=== PATIENT | female | born 1950 | race Caucasian/White ===

== ENCOUNTER 2020-07-03 08:12 | Outpatient (REF) | payer MEDICARE, SELFPAY ==
[2020-07-03 11:20] LABS: MANUAL DIFF FLAG NO
[2020-07-03 11:31] LABS: Basophils Absolute Auto 0.1 X10*3/uL (0.0-0.2); Basophils Percent Auto 0.6 % (0-2); Eosinophils Absolute Auto 0.3 X10*3/uL (0.0-0.4); Eosinophils Percent Auto 3.8 % (0-4); Hematocrit 43.8 % (37-47); Hemoglobin 14.6 g/dl (12.0-16.0); Imm Gran Abs Auto 0.02 X10*3/uL (0.00-0.03); Imm Gran Pct Auto 0.3 % (0.0-0.4); Lymphocytes Absolute Auto 2.2 X10*3/uL (1.2-4.9); Lymphocytes Percent Auto 28.6 % (20-40); Mean Corpuscular HGB Conc 33.3 g/dl (31.0-35.0); Mean Corpuscular Hemoglobin 31.7 pg (27.0-33.0); Mean Platelet Volume 10.3 fL (9.4-12.3); Monocytes Absolute Auto 0.5 X10*3/uL (0.1-1.2); Monocytes Percent Auto 6.8 % (2-11); Neutrophils Absolute Auto 4.7 X10*3/uL (2.0-8.3); Neutrophils Percent Auto 59.9 % (45-73); Platelet Count 317 X10*3/uL (160-400); Red Blood Count 4.61 X10*6/uL (4.20-5.50); White Blood Count 7.8 X10*3/uL (4.8-10.8)
[2020-07-03 11:44] LABS: Glucose Urine UA NEG (NEG); Leukocyte Esterase Urine NEG (NEG); Nitrite Urine NEG (NEG); Urine Blood 3+ (NEG); Urine Ketones NEG (NEG); Urine Protein TRACE MG/DL (NEG-TRACE)
[2020-07-03 11:46] LABS: Appearance Urine CLEAR; Color Urine YELLOW
[2020-07-03 11:53] LABS: Alanine Aminotransferase 16 U/L (0-31); Albumin Level 4.3 g/dL (3.5-5.0); Anion Gap 12 (12-20); Aspartate Amino Transferase 17 U/L (5-31); Bilirubin Total 0.4 mg/dL (0.0-1.0); Blood Urea Nitrogen 10 mg/dL (9-16); Calcium 9.6 mg/dL (8.4-10.2); Carbon Dioxide 31 mmol/L (22-29); Chloride 101 mmol/L (96-108); Cholesterol 193 mg/dL; Estimated Glomerular Filt Rate > 60; Glucose Fasting 84 mg/dL (60-99); HDL Cholesterol 61 mg/dL; LDL Cholesterol Calculated 113 mg/dl; Potassium 4.2 mmol/l (3.3-5.1); Sodium 140 mmol/L (135-145); Total Protein 6.6 g/dL (6.5-8.0); Triglycerides 97 mg/dL
[2020-07-03 11:54] LABS: Alkaline Phosphatase 76 U/L (39-117)
[2020-07-03 11:57] LABS: Bacteria Urine TRACE /LPF; Mucus Urine 1+ /LPF; RBC Urine 30-49 /HPF (0); Squamous Epithelial Cell Urine 1+ /LPF; WBC Urine 0-2 /HPF (0-4)
[2020-07-03 12:08] LABS: TSH reflex Free T4 1.22 mIU/mL (0.32-4.0)
== END 2020-07-03 08:13 | disposition home or self-care (01) ==
LOC: HO.HMGCLDS 08:12
PROVIDERS: PCP Internal Medicine; Visit Provider Internal Medicine
DX: I10 Essential (primary) hypertension (principal); J44.9 Chronic obstructive pulmonary disease, unspecified; K21.9 Gastro-esophageal reflux disease without esophagitis; F17.200 Nicotine dependence, unspecified, uncomplicated
CPT/HCPCS: 36415; 80053; 80061; 81001; 84443; 85025

== ENCOUNTER 2021-01-02 08:31 | Day surgery (SDC) | payer MEDICARE, SELFPAY ==
[2020-12-26 14:11] VITALS: BMI 21.0
--- NOTE | 2020-12-31 15:27 | P.CONAN_ITS ---
Documented by User: Lydia Whelan 12/31/20 15:28 HPI - Anesthesia Eval Consult details Narrative: 70yo F for Colonoscopy PMFSH Active Problems Active Problems: All Active Problems (Updated 12/26/20 @ 13:58 by Judith Marin) Blood in stool (Acute) Benign microscopic hematuria (Acute) Smoker (Acute) GERD without esophagitis (Acute) Osteoarthritis of spine with radiculopathy, cervical region (Acute) Benign essential hypertension (Acute) COPD (chronic obstructive pulmonary disease) (Acute) Past Medical History Medical History Benign essential hypertension Benign microscopic hematuria Blood in stool COPD (chronic obstructive pulmonary disease) COVID-19 vaccine series completed GERD without esophagitis Osteoarthritis of spine with radiculopathy, cervical region Smoker Family History Family History Father Hypertension Cerebral aneurysm Mother Cerebral aneurysm Cancer Surgical History Surgical History (Updated 12/26/20 @ 14:06 by Judith Marin) History of breast lump/mass excision History of cataract extraction History of cystoscopy History of esophagogastroduodenoscopy (EGD) Hx of colonoscopy Social History Social History Are you a primary personal caregiver to a significant other at home: No Do you presently have visiting nurse or other home services: No Alcohol intake: current Alcohol intake frequency: holidays/special occasions only Patient Tobacco Use Status: Current everyday Tobacco user Tobacco use type: Cigarette Cigarette Packs Per Day: 0.5 Cigarettes Per Day: 10.0 Years Smoked: 55+ Smoked in Last 30 Days: Yes Patient Interested in Nicotine Replacement: No Patient Given Instructions on How to Stop Smoking: Yes Date Education Initiated: 12/26/20 Use of substances other than those prescribed or required for medical reasons: No Have you been hit, kicked, punched, or otherwise hurt by someone within the past year? If so, by whom?: No Are you DNR?: No Advance Directives: No Advance Directives Information Provided: No Advance Directives on File: No Recently lost weight without trying: No Eating poorly because of decreased appetite: No Meds Allergies Allergy/AdvReac Type Severity Reaction Status Date / Time oxycodone [Percocet] Allergy Unknown Vomiting Verified 12/26/20 14:07 strawberry [STRAWBERRY] Allergy Unknown ITCHY Verified 12/26/20 14:07 Home Medications Medication Instructions Recorded Confirmed Last Taken Type albuterol sulfate 90 mcg/actuation 2 puff INHALATION Q6H PRN 06/27/20 12/26/20 Unknown History aerosol inhaler fluticasone propionate 110 1 puff INHALATION BID 06/27/20 12/26/20 Unknown History mcg/actuation HFA aerosol inhaler umeclidinium 62.5 mcg/actuation 1 inh INHALATION DAILY 06/27/20 12/26/20 Unknown History blister powder for inhalation Exam Exam Date and Time: December 31, 2020 1527 Height,Weight and Vital Signs: Height 5 ft 2 in Weight 52.163 kg Assessment and Plan Assessment Anesthesia Assessment: Chart Reviewed Documented by User: Carlota Crenshaw 01/02/21 08:23 [facility] Past Medical History Medical History Benign essential hypertension Benign microscopic hematuria Blood in stool COPD (chronic obstructive pulmonary disease) COVID-19 vaccine series completed GERD without esophagitis Osteoarthritis of spine with radiculopathy, cervical region Smoker Family History Family History Father Hypertension Cerebral aneurysm Mother Cerebral aneurysm Cancer Surgical History Surgical History (Updated 12/26/20 @ 14:06 by Judith Marin) History of breast lump/mass excision History of cataract extraction History of cystoscopy History of esophagogastroduodenoscopy (EGD) Hx of colonoscopy Social History Social History Are you a primary personal caregiver to a significant other at home: No Do you presently have visiting nurse or other home services: No Alcohol intake: current Alcohol intake frequency: holidays/special occasions only Patient Tobacco Use Status: Current everyday Tobacco user Tobacco use type: Cigarette Cigarette Packs Per Day: 0.5 Cigarettes Per Day: 10.0 Years Smoked: 55+ Smoked in Last 30 Days: Yes Patient Interested in Nicotine Replacement: No Patient Given Instructions on How to Stop Smoking: Yes Date Education Initiated: 12/26/20 Use of substances other than those prescribed or required for medical reasons: No Have you been hit, kicked, punched, or otherwise hurt by someone within the past year? If so, by whom?: No Are you DNR?: No Advance Directives: No Advance Directives Information Provided: No Advance Directives on File: No Recently lost weight without trying: No Eating poorly because of decreased appetite: No Meds Allergies Allergy/AdvReac Type Severity Reaction Status Date / Time oxycodone [Percocet] Allergy Unknown Vomiting Verified 12/26/20 14:07 strawberry [STRAWBERRY] Allergy Unknown ITCHY Verified 12/26/20 14:07 Home Medications Medication Instructions Recorded Confirmed Last Taken Type albuterol sulfate 90 mcg/actuation 2 puff INHALATION Q6H PRN 06/27/20 12/26/20 Unknown History aerosol inhaler fluticasone propionate 110 1 puff INHALATION BID 06/27/20 12/26/20 Unknown History mcg/actuation HFA aerosol inhaler umeclidinium 62.5 mcg/actuation 1 inh INHALATION DAILY 06/27/20 12/26/20 Unknown History blister powder for inhalation Exam Airway Mallampati Class: II TM Dist: >3cm Neck ROM: Full Heart: RRR Lungs: CTA
[2021-01-02 09:11] VITALS: BP 118/71; PULSE 75; RESP 16; TEMP 37.1; O2SAT 94
[2021-01-02] MEDS: Lactated Ringers 1,000 ML 100 ML IVCONT (09:21)
--- NOTE | 2021-01-02 11:22 | HO.POSTANES ---
Post Anesthesia Evaluation Post Anesthesia Evaluation Vital Signs: Vital Signs Temp Pulse Resp BP Pulse Ox 01/02/21 09:11 98.8 F 75 16 118/71 94 Anesthesia: Monitored Mental Status: Awake Nausea/Vomiting: None Hydration: Adequate Anesthesia-Related Issues: No Anes. Related Issues
[2021-01-02 11:30] VITALS: BP 113/64; PULSE 77; RESP 18; TEMP 36.7; O2SAT 99
--- NOTE | 2021-01-02 11:33 | PM.OP ---
Brief Operative Note Date of Service: 01/02/21 Pre-op diagnosis: Heme + stool, History of colon polyps Post-op diagnosis: other (Colon polyps) Procedure: Colonoscopy to the cecum and TI with snare polypectomy and bx/removal of polyp Surgeon: Luis Antonio Zepeda Anesthesia: MAC Was an Building Construction Professor used for this Procedure?: No Estimated blood loss (mL): 4.0 Pathology: other (A. Transverse colon polyp B. Rectal polyp) Condition: stable Disposition: PACU
[2021-01-02 11:50] VITALS: BP 127/68; PULSE 62; RESP 18; O2SAT 97
--- NOTE | 2021-01-02 20:27 | OP_ITS ---
SURGEON: Luis Antonio Zepeda MD INDICATIONS: Full consent has been obtained from her for this, including risks of bleeding and perforation. PREOPERATIVE DIAGNOSIS: POSTOPERATIVE DIAGNOSIS: PROCEDURE PERFORMED: Colonoscopy to the cecum and terminal ileum with snare polypectomy, and biopsy and removal of polyp. ESTIMATED BLOOD LOSS: COMPLICATIONS: ANESTHESIA: Monitored anesthesia care. ASSISTANTS: SPECIMENS: PREOPERATIVE DIAGNOSES: Heme-positive stool and history of colon polyps. POSTOPERATIVE DIAGNOSES: Heme-positive stool and history of colon polyps, colon polyps, diverticulosis and internal hemorrhoids. DESCRIPTION OF PROCEDURE: The patient was placed in the left lateral decubitus position. The digital rectal exam revealed some external hemorrhoids. The Olympus video pediatric colonoscope was entered into the rectum and advanced easily to the cecum. Once in the cecum, I did identify normal-appearing cecal pouch with appendiceal orifice and a normal-appearing ileocecal valve. The terminal ileum was cannulated and appeared normal. The scope was withdrawn back in the colon. The entire cecum and ileocecal valve appeared normal. The scope was slowly withdrawn assessing all mucosal surfaces carefully. Preparation was excellent. In the transverse colon, was a flat, but slightly raised approximately 10 mm polyp, which was snared and recovered by suction. The polypectomy site appeared clean, without any sign of residual polyp nor bleeding. In the rectum, was a flat approximately 6 mm polyp, which was biopsied and completely removed with cold biopsy forceps. I did not visualize any other polyps, colitis, nor angiodysplasia. There was a moderate amount of sigmoid diverticulosis. In the rectum, scope was retroflexed visualizing internal hemorrhoids, but no other pathology. The rectal mucosa appeared normal. The scope was straightened out and withdrawn from the patient. She tolerated the procedure well and was returned to the recovery area in stable condition. IMPRESSION: 1. Colon polyps, status post snare polypectomy, and biopsy and removal. 2. Diverticulosis. 3. Internal hemorrhoids. 4. External hemorrhoids. PLAN: The results of the pathology will be checked. I would recommend a repeat colonoscopy in 5 years for further surveillance. She was advised not to use any aspirin or NSAIDs for 1 week. She would otherwise see me on a p.r.n. basis. MD NARCISA Rios/MICHELLE / [phone]
== END 2021-01-02 12:18 | disposition home or self-care (01) ==
PROVIDERS: PCP Internal Medicine; Visit Provider Internal Medicine
PROC: 0DJD8ZZ Inspection of Lower Intestinal Tract, Via Natural or Artificial Opening Endoscopic (ICD-10-PCS; CPT 45378; principal; 2021-01-02 10:10)
DX: Z12.11 Encounter for screening for malignant neoplasm of colon (principal); Z86.010 Personal history of colon polyps; D12.3 Benign neoplasm of transverse colon; K62.1 Rectal polyp; K57.30 Diverticulosis of large intestine without perforation or abscess without bleeding; K64.8 Other hemorrhoids; K64.4 Residual hemorrhoidal skin tags; I10 Essential (primary) hypertension; J44.9 Chronic obstructive pulmonary disease, unspecified; K21.9 Gastro-esophageal reflux disease without esophagitis; Z79.51 Long term (current) use of inhaled steroids; Z79.899 Other long term (current) drug therapy; Z88.8 Allergy status to other drugs, medicaments and biological substances; F17.210 Nicotine dependence, cigarettes, uncomplicated
CPT/HCPCS: 45385; 45380; 88305

== ENCOUNTER 2021-06-04 07:22 | Outpatient (REF) | payer MEDICARE, SELFPAY ==
[2021-06-04 11:39] LABS: MANUAL DIFF FLAG NO
[2021-06-04 11:41] LABS: Appearance Urine CLEAR; Color Urine STRAW; Glucose Urine UA NEG (NEG); Leukocyte Esterase Urine NEG (NEG); Nitrite Urine NEG (NEG); Specific Gravity - Urine <= 1.005 (1.005-1.025); UACC Culture Trigger NO; Urine Blood 2+ (NEG); Urine Ketones NEG (NEG); Urine Protein NEG (NEG-TRACE)
[2021-06-04 11:46] LABS: Basophils Percent Auto 0.4 % (0-2); Eosinophils Absolute Auto 0.2 X10*3/uL (0.0-0.4); Eosinophils Percent Auto 2.7 % (0-4); Hematocrit 40.7 % (37.0-47.0); Hemoglobin 13.6 g/dl (12.0-16.0); Imm Gran Abs Auto 0.01 X10*3/uL (0.00-0.03); Imm Gran Pct Auto 0.1 % (0.0-0.4); Lymphocytes Absolute Auto 2.6 X10*3/uL (1.2-4.9); Lymphocytes Percent Auto 34.9 % (20-40); Mean Corpuscular HGB Conc 33.4 g/dl (31.0-35.0); Mean Corpuscular Hemoglobin 31.6 pg (27.0-33.0); Mean Corpuscular Volume 94.7 fL (80.0-98.0); Mean Platelet Volume 10.2 fL (9.4-12.3); Monocytes Absolute Auto 0.6 X10*3/uL (0.1-1.2); Monocytes Percent Auto 7.3 % (2-11); Neutrophils Absolute Auto 4.1 x10*3/uL (2.0-8.3); Neutrophils Percent Auto 54.6 % (45-73); Platelet Count 291 X10*3/uL (160-400); Red Cell Distribution Width 13.2 % (11.0-16.0); White Blood Count 7.5 X10*3/uL (4.8-10.8)
[2021-06-04 11:56] LABS: Squamous Epithelial Cell Urine 1+ /LPF; WBC Urine 0-2 /HPF (0-4)
[2021-06-04 12:08] LABS: Alanine Aminotransferase 16 U/L (0-31); Albumin Level 4.3 g/dL (3.5-5.0); Alkaline Phosphatase 84 U/L (39-117); Anion Gap 13 (12-20); Aspartate Amino Transferase 17 U/L (5-31); Bilirubin Total 0.4 mg/dL (0.0-1.0); Blood Urea Nitrogen 17 mg/dL (9-16); Calcium 10.1 mg/dL (8.4-10.2); Carbon Dioxide 28 mmol/L (22-29); Chloride 103 mmol/L (96-108); Cholesterol 202 mg/dL; Estimated Glomerular Filt Rate > 60; Glucose Fasting 86 mg/dL (60-99); HDL Cholesterol 61 mg/dL; LDL Cholesterol Calculated 124 mg/dl; Potassium 3.5 mmol/L (3.3-5.1); Sodium 140 mmol/L (135-145); Total Protein 6.5 g/dL (6.5-8.0); Triglycerides 88 mg/dL
[2021-06-04 12:31] LABS: TSH reflex Free T4 1.36 uIU/mL (0.32-4.0); Vitamin D 25-OH Total 31.4 ng/mL (>30)
== END 2021-06-04 07:23 | disposition home or self-care (01) ==
LOC: HO.HMGCLDS 07:22
PROVIDERS: PCP Internal Medicine; Visit Provider Internal Medicine
DX: E78.00 Pure hypercholesterolemia, unspecified (principal); E55.9 Vitamin D deficiency, unspecified; I10 Essential (primary) hypertension
CPT/HCPCS: 36415; 80053; 80061; 81001; 82306; 84443; 85025

== ENCOUNTER → 2021-11-04 08:36 | Outpatient (REF) | payer MEDICARE, SELFPAY ==
--- NOTE | 2021-11-04 08:50 | ECG_ITS ---
Test Reason : CHEST PAIN Blood Pressure : / mmHG Vent. Rate : 073 BPM Atrial Rate : 073 BPM P-R Int : 162 ms QRS Dur : 078 ms QT Int : 382 ms P-R-T Axes : 082 077 071 degrees QTc Int : 420 ms Normal sinus rhythm Normal ECG When compared with ECG of 08-SEP-2008 12:12, No significant change was found Referred By: Mary Echeverria Electronically Signed By:Davian Jasmine
== END ==
LOC: HO.CARD 08:36
PROVIDERS: PCP Internal Medicine; Visit Provider Nurse Practitioner Family
DX: R07.89 Other chest pain (principal)
CPT/HCPCS: 93005

== ENCOUNTER → 2022-04-01 14:45 | Outpatient (BNVA) | payer MEDICARE, SELFPAY | PROVIDERS: PCP Internal Medicine; Visit Provider Surgery | DX: C50.912 Malignant neoplasm of unspecified site of left female breast (principal); N64.4 Mastodynia | CPT/HCPCS: 99202 ==

== ENCOUNTER 2022-04-06 08:18 | Outpatient (REF) | payer MEDICARE, SELFPAY ==
--- NOTE | ~2022-04-06 | MM_ITS ---
EXAMINATION: MM DIAGNOSTIC DIGITAL BREAST TOMOSYNTHESIS, BILATERAL US TARGETED BREAST ULTRASOUND, LEFT CLINICAL INFORMATION: Status post left lumpectomy and radiation therapy with tenderness and redness in the upper outer quadrant. COMPARISON: Mammography: 11/08/2019 and studies dating back to 04/25/2014. TECHNIQUE: Digital breast tomosynthesis is performed in both the craniocaudal and mediolateral oblique views along with computer-aided detection (CAD). Synthesized 2-D images are generated from the tomosynthesis. Targeted left breast ultrasound. FINDINGS: There are scattered areas of fibroglandular density (ACR BI-RADS breast composition Category b). There are no new significant masses, abnormal calcifications, or other abnormalities. Postsurgical change from previous lumpectomy again seen. Targeted left breast ultrasound in region of palpable abnormality upper outer aspect did not demonstrate any abnormal cystic or solid masses. No region of abnormal distal sound shadowing is appreciated. No edematous change within the parenchyma is noted. Results are discussed with the patient at time of visit. MM/MM tomosynthesis diagnostic BI IMPRESSION: There are no significant changes from prior study. No ultrasound abnormality in region of patient's complaint. ASSESSMENT: BI-RADS 2: Benign. RECOMMENDATION: Routine annual mammography screening. This patient's information was entered into a reminder system with a target due date for their next mammogram.
== END 2022-04-06 08:19 | disposition home or self-care (01) ==
LOC: HO.MAMMO 08:18
PROVIDERS: PCP Internal Medicine; Visit Provider Surgery
DX: N64.4 Mastodynia (principal); C50.912 Malignant neoplasm of unspecified site of left female breast
CPT/HCPCS: 76642; 77062; 77066

== ENCOUNTER 2022-05-14 11:55 | Outpatient (REF) | payer MEDICARE, SELFPAY ==
--- NOTE | ~2022-05-14 | XR_ITS ---
EXAMINATION: XR ANKLE, RIGHT CLINICAL INFORMATION: Right ankle sprain. COMPARISON: None TECHNIQUE: AP, lateral, and mortise views of the right ankle. FINDINGS: The bones and soft tissues are normal. No fracture. Alignment is anatomic. Joint spaces are maintained. No joint effusion. Very small plantar and retrocalcaneal spur. XR/XR ankle RT min 3V IMPRESSION: Very small degenerative calcaneal spurs. No acute fracture.
== END 2022-05-14 11:56 | disposition home or self-care (01) ==
LOC: HO.HMGCX 11:55
PROVIDERS: PCP Internal Medicine; Visit Provider Internal Medicine
DX: S93.401A Sprain of unspecified ligament of right ankle, initial encounter (principal)
CPT/HCPCS: 73610

== ENCOUNTER 2022-06-30 08:35 | Outpatient (REF) | payer MEDICARE, SELFPAY ==
[2022-06-30 11:43] LABS: Appearance Urine Clear; Color Urine Yellow; Glucose Urine UA Negative (Negative); Leukocyte Esterase Urine Negative (Negative); Nitrite Urine Negative (Negative); Specific Gravity - Urine <= 1.005 (1.005-1.025); UMIC TRIGGER UACC YES; Urine Blood Small (1+) (Negative); Urine Ketones Negative (Negative); Urine Protein Negative (Neg-Trace)
[2022-06-30 11:45] LABS: MANUAL DIFF FLAG NO
[2022-06-30 11:48] LABS: Basophils Absolute Auto 0.1 X10*3/uL (0.0-0.2); Basophils Percent Auto 0.7 % (0-2); Eosinophils Absolute Auto 0.3 X10*3/uL (0.0-0.4); Eosinophils Percent Auto 3.5 % (0-4); Hematocrit 41.1 % (37.0-47.0); Hemoglobin 13.7 g/dl (12.0-16.0); Imm Gran Abs Auto 0.02 X10*3/uL (0.00-0.03); Imm Gran Pct Auto 0.2 % (0.0-0.4); Lymphocytes Absolute Auto 2.5 X10*3/uL (1.2-4.9); Lymphocytes Percent Auto 30.9 % (20-40); Mean Corpuscular HGB Conc 33.3 g/dl (31.0-35.0); Mean Corpuscular Hemoglobin 31.4 pg (27.0-33.0); Mean Corpuscular Volume 94.3 fL (80.0-98.0); Monocytes Absolute Auto 0.6 X10*3/uL (0.1-1.2); Monocytes Percent Auto 7.5 % (2-11); Neutrophils Absolute Auto 4.6 x10*3/uL (2.0-8.3); Neutrophils Percent Auto 57.2 % (45-73); Platelet Count 307 X10*3/uL (160-400); Red Blood Count 4.36 X10*6/uL (4.20-5.50); Red Cell Distribution Width 13.1 % (11.0-16.0); White Blood Count 8.1 X10*3/uL (4.8-10.8)
[2022-06-30 12:12] LABS: Bacteria Urine None Seen (None Seen); Hyaline Casts Urine 0-2 /LPF (0-2); Squamous Epithelial Cell Urine 0-2 /HPF (0-2); WBC Urine 0-5 /HPF (0-5)
[2022-06-30 12:19] LABS: Alanine Aminotransferase 12 U/L (0-31); Albumin Level 4.1 g/dL (3.5-5.0); Alkaline Phosphatase 84 U/L (39-117); Anion Gap 10 (12-20); Aspartate Amino Transferase 16 U/L (5-31); Bilirubin Total 0.5 mg/dL (0.0-1.0); Blood Urea Nitrogen 16 mg/dL (9-16); Calcium 9.7 mg/dL (8.4-10.2); Carbon Dioxide 31 mmol/L (22-29); Chloride 101 mmol/L (96-108); Cholesterol 215 mg/dL; Estimated Glomerular Filt Rate > 60; Glucose Fasting 82 mg/dL (60-99); HDL Cholesterol 62 mg/dL; LDL Cholesterol Calculated 138 mg/dl; Potassium 3.6 mmol/L (3.3-5.1); Sodium 138 mmol/L (135-145); Total Protein 6.3 g/dL (6.5-8.0); Triglycerides 76 mg/dL
[2022-06-30 12:39] LABS: TSH reflex Free T4 0.89 uIU/mL (0.32-4.0); Vitamin D 25-OH Total 36.7 ng/mL (>30)
== END 2022-06-30 08:36 | disposition home or self-care (01) ==
LOC: HO.HMGCLDS 08:35
PROVIDERS: PCP Internal Medicine; Visit Provider Internal Medicine
DX: I10 Essential (primary) hypertension (principal); E55.9 Vitamin D deficiency, unspecified; E78.00 Pure hypercholesterolemia, unspecified
CPT/HCPCS: 36415; 80053; 80061; 81001; 82306; 84443; 85025

== ENCOUNTER 2023-02-23 07:38 | Outpatient (REF) | payer MEDICARE, SELFPAY ==
[2023-02-23 11:51] LABS: Appearance Urine Clear; Color Urine Yellow; Glucose Urine UA Negative (Negative); Leukocyte Esterase Urine Negative (Negative); Nitrite Urine Negative (Negative); PH 7.5 (5.0-9.0); UMIC TRIGGER UACC YES; Urine Blood Moderate (2+) (Negative); Urine Ketones Negative (Negative); Urine Protein Trace mg/dL (Neg-Trace)
[2023-02-23 11:54] LABS: Bacteria Urine None Seen (None Seen); Hyaline Casts Urine 0-2 /LPF (0-2); RBC Urine >20 /HPF (0-2); Squamous Epithelial Cell Urine 0-2 /HPF (0-2); WBC Urine 0-5 /HPF (0-5)
[2023-02-23 11:55] LABS: MANUAL DIFF FLAG NO
[2023-02-23 12:11] LABS: Basophils Absolute Auto 0.1 X10*3/uL (0.0-0.2); Basophils Percent Auto 0.9 % (0-2); Eosinophils Absolute Auto 0.3 X10*3/uL (0.0-0.4); Hematocrit 43.3 % (37.0-47.0); Hemoglobin 14.1 g/dl (12.0-16.0); Imm Gran Abs Auto 0.02 X10*3/uL (0.00-0.03); Imm Gran Pct Auto 0.3 % (0.0-0.4); Lymphocytes Absolute Auto 2.4 X10*3/uL (1.2-4.9); Lymphocytes Percent Auto 34.1 % (20-40); Mean Corpuscular HGB Conc 32.6 g/dl (31.0-35.0); Mean Corpuscular Hemoglobin 31.5 pg (27.0-33.0); Mean Corpuscular Volume 96.7 fL (80.0-98.0); Mean Platelet Volume 10.4 fL (9.4-12.3); Monocytes Absolute Auto 0.4 X10*3/uL (0.1-1.2); Monocytes Percent Auto 6.3 % (2-11); Neutrophils Absolute Auto 3.8 x10*3/uL (2.0-8.3); Neutrophils Percent Auto 54.4 % (45-73); Platelet Count 290 X10*3/uL (160-400); Red Blood Count 4.48 X10*6/uL (4.20-5.50); Red Cell Distribution Width 13.5 % (11.0-16.0)
[2023-02-23 12:38] LABS: Alanine Aminotransferase 11 U/L (0-31); Alkaline Phosphatase 71 U/L (39-117); Anion Gap 9 (12-20); Aspartate Amino Transferase 17 U/L (5-31); Bilirubin Total 0.5 mg/dL (0.0-1.0); Blood Urea Nitrogen 7 mg/dL (9-16); Calcium 9.8 mg/dL (8.4-10.2); Carbon Dioxide 30 mmol/L (22-29); Chloride 105 mmol/L (96-108); Cholesterol 180 mg/dL (<200); Estimated Glomerular Filt Rate > 60; Glucose Fasting 86 mg/dL (60-99); HDL Cholesterol 63 mg/dL (>40); LDL Cholesterol Calculated 98 mg/dL (<100); Potassium 4.1 mmol/L (3.3-5.1); Sodium 140 mmol/L (135-145); TSH reflex Free T4 1.56 uIU/mL (0.32-4.0); Total Protein 6.4 g/dL (6.5-8.0); Triglycerides 97 mg/dL (<150)
== END 2023-02-23 07:39 | disposition home or self-care (01) ==
LOC: HO.HMGCLDS 07:38
PROVIDERS: PCP Internal Medicine; Visit Provider Internal Medicine
DX: E78.00 Pure hypercholesterolemia, unspecified (principal); I10 Essential (primary) hypertension
CPT/HCPCS: 36415; 80053; 80061; 81001; 84443; 85025

== ENCOUNTER 2023-03-21 12:46 | Outpatient (AMB) | payer MEDICARE, SELFPAY ==
[2023-03-21 12:48] VITALS: BP 104/68; PULSE 73; O2SAT 90; BMI 19.1
--- NOTE | 2023-03-21 12:48 | MHC.PC.OV ---
Vital Signs 03/21/23 12:48 Height 5 ft 2 in Weight 104 lb 8 oz BMI 19.1 BP 104/68 Blood Pressure Location Lt brachial Position Sitting Pulse 73 Pulse Source Pulse Oximeter Pulse Oximetry (%) 90 L Oxygen Delivery Method Room Air Intake Visit Reasons: COPD, hyperlipidemia, HTN Pedicurist Required: No Accompanied by: Self / Same As Patient Allergies oxycodone [Percocet] Allergy (Unknown, Verified 03/21/23 13:18) Vomiting strawberry [STRAWBERRY] Allergy (Unknown, Verified 03/21/23 13:18) ITCHY Medication List - Last Reconciled 03/21/23 by Jacob Jones MD albuterol sulfate 90 mcg/actuation (ProAir HFA) 2 puffs inhalation Q6H PRN 30 days amlodipine 5 mg PO DAILY fluticasone propionate 110 mcg/actuation (Flovent HFA) 1 puff inhalation BID Incruse Ellipta 62.5 mcg/actuation (umeclidinium) 1 inh inhalation DAILY 30 days NS omeprazole 40 mg PO DAILY valsartan-hydrochlorothiazide 160-12.5 mg 1 tab PO DAILY 90 days Tobacco use date assessed: 03/21/23 Fall risk assessment: No Falls in past year Last assessed Fall Risk: 03/21/23 Dental Screening Dental Screen Date: 03/21/23 Did you have a dental visit in the last 12 months?: No Did you have a dental problem in the last 6 months where you did not have access to dental care?: No Was dental information given to patient?: No HPI COPD, hyperlipidemia, HTN HPI Details Patient comes in today for her follow up visit States that she feels okay She denies any headaches but reports that she is still experiencing recurrent dizziness and she feels that these have been occurring more often lately States that her dizziness/lightheadedness feels worse when she gets up too quickly or when she bends over Denies any chest pains, no increased SOB No nausea/vomiting, no abdominal pain No change in bowel habits noted Had her follow up labs done last month - to discuss her results [facility] Medical History Pure hypercholesterolemia COVID-19 vaccine series completed Blood in stool Benign microscopic hematuria Smoker GERD without esophagitis Osteoarthritis of spine with radiculopathy, cervical region Benign essential hypertension COPD (chronic obstructive pulmonary disease) Surgical History History of esophagogastroduodenoscopy (EGD) Hx of colonoscopy History of cataract extraction History of cystoscopy History of breast lump/mass excision Family History Father Hypertension Cerebral aneurysm Mother Cerebral aneurysm Cancer Sister No problems noted. Other Substance abuse Social History Housing: House Are you a primary vocational childcare teacher to a significant other at home: No Do you presently have visiting nurse or other home services: No Alcohol intake: current Alcohol intake frequency: holidays/special occasions only Patient Tobacco Use Status: Current everyday Tobacco user Tobacco use type: Cigarette Cigarettes Per Day: 10 e-Cigarette/Vaping Use: Never Used Second Hand Smoke Exposure: Yes service: No Current occupational status: retired Cognitive needs: No Hearing needs: No Vision needs: Yes Questionnaire PHQ-9 Over the last 2 weeks, how often have you been bothered by any of the following problems? 1. Little interest or pleasure in doing things: not at all 2. Feeling down, depressed, or hopeless: not at all 3. Trouble falling or staying asleep, or sleeping too much: not at all 4. Feeling tired or having little energy: not at all 5. Poor appetite or overeating: not at all 6. Feeling bad about yourself - or that you are a failure or have let yourself or your family down: not at all 7. Trouble concentrating on things, such as reading the newspaper or watching television: not at all 8. Moving or speaking so slowly that other people could have noticed. Or the opposite - being so fidgety or restless that you have been moving around a lot more than usual: not at all 9. Thoughts that you would be better off or of hurting yourself in some way: not at all Total score: 0 Depression Screening Interpretation: Negative Depression Screening Done: Yes 49638 - PHQ-9 Billing: Yes Source: Developed by Drs. Luis Antonio Myers, Angelita Young, Bhavin Angulo and colleagues, with an educational river from [place]. Thrive Questionnaire Date Thrive assessed: 03/21/23 I am a: Patient What is your living situation today?: I have a steady place to live Within the past 12 months, did the food you bought not last and you didn't have the money to get more?: Never true Within the past 12 months, did you worry whether your food would run out before you got money to buy more?: Never true Do you have trouble paying for medicines?: No Do you have trouble getting transportation to medical appointments?: No Do you have trouble paying your heating and electricity bill?: No Do you have trouble taking care of your child, family member or friend?: No Do you have trouble with day-to-day activities such as bathing, preparing meals, shopping, managing finances, etc.?: No Are you currently unemployed and looking for a job?: No Are you interested in more education?: No Please select the resources that you would like help with: None Currently or been in a relationship where the following occur: no concerns reported AUDIT C Alcohol Use Questionnaire (AUDIT-C) 1. How often do you have a drink containing alcohol?: Monthly or less 2. How many drinks containing alcohol do you have on a typical day when you are drinking?: 1 or 2 3. How often do you have six or more drinks on one occasion?: Never Total Score: 1 Score Reviewed/Action Taken: Yes ARAMIS-7 AMB Questionnaire ARAMIS-7 Date ARAMIS - 7 assessed: 03/21/23 Feeling nervous, anxious, or on edge: 0 = Not at all Not being able to stop or control worryin = Not at all Worrying too much about different things: 0 = Not at all Trouble relaxin = Not at all Being so restless that it is hard to sit still: 0 = Not at all Becoming easily annoyed or irritable: 0 = Not at all Feeling afraid as if something awful might happen: 0 = Not at all Total ARAMIS-7 score (0-4 normal; 5-9 mild; 10-14 moderate; 15-21 severe): 0 Source: Developed by Drs. Luis Antonio Myers, Angelita Young, Bhavin Angulo and colleagues, with an educational river from [place]. Review of Systems Const Denies chills, Denies fatigue, Denies fever(s) and Denies headache(s) ENT Denies dysphagia, Reports dizziness (increasing lately - see HPI), Denies otalgia, Denies headache(s), Denies neck pain, Denies odynophagia and Denies sore throat Card Denies chest pain, Denies palpitations and Reports dyspnea on exertion (mild) Resp Denies cough and Reports dyspnea on exertion (mild) GI Denies abdominal pain, Denies constipation, Denies dysphagia, Denies heartburn, Denies diarrhea, Denies nausea, Denies odynophagia and Denies vomiting Denies difficulty voiding, Denies nocturia, Denies dysuria and Denies urinary urgency Musc Denies neck pain Skin/Breast Denies rash Neuro Reports dizziness (increasing lately - see HPI) and Denies headache(s) Psych Reports anxiety Endo Denies fatigue and Denies palpitations Physical exam (Primary Care) Vital Signs: Last Vital Signs Pulse 73 03/21/23 12:48 BP 104/68 03/21/23 12:48 Pulse Ox 90 L 03/21/23 12:48 Oxygen Delivery Method Room Air 03/21/23 12:48 BMI result Body Mass Index 19.1 Tobacco/Smoking Status: Tobacco use Status Tobacco use date assessed 03/21/23 03/21/23 12:55 Patient Tobacco Use Status Current everyday Tobacco 03/21/23 12:55 Tobacco use type Cigarette 03/21/23 12:55 e-Cigarette/Vaping Use Never Used 03/21/23 12:55 PHQ-9: PHQ-9 Score PHQ-9: Total score 0 03/21/23 13:27 Depression Screening Interpretation: Negative Thrive Assessment: Date of Thrive Assessment Date Thrive assessed 03/21/23 03/21/23 12:55 Currently or been in a relationship where the following occur: no concerns reported Const General: no acute distress and alert HENMT Ears: TM's normal bilaterally and EAC's normal Throat: Yes posterior oropharynx normal and Yes tonsils normal (no TP congestion noted) Neck Neck: Yes no lymphadenopathy and Yes supple Resp Auscultation: no rales, no wheezes and diminished lung sounds (slightly) bilateral Cardio Rate: regular rate Rhythm: regular rhythm Heart sounds: no murmurs GI Palpation (GI): Soft to palpation and nontender Auscultation: normal bowel sounds General: Yes no CVA tenderness Back/Spine/Pelvis Back: no CVA tenderness Skin Rashes: no rashes Extrem General: Yes no clubbing, cyanosis or edema Results Reviewed Results Reviewed: Laboratory Tests 02/23/23 07:42 WBC 7.0 Hgb 14.1 Hct 43.3 Plt Count 290 Sodium 140 Potassium 4.1 Creatinine 0.68 Estimated GFR > 60 Fasting Glucose 86 Calcium 9.8 AST 17 ALT 11 Triglycerides 97 Cholesterol 180 LDL Cholesterol, Calc 98 HDL Cholesterol 63 TSH 1.56 Ur Specific [place] 1.010 Urine Protein Trace Urine Glucose (UA) Negative Urine Blood Moderate (2+) H Assessment and Plan Assessment & Plan (1) Benign essential hypertension: Code(s): I10 - Essential (primary) hypertension Plan: Reinforced low sodium diet - goal is systolic BP of 120 to 130 mm or less Continue Valsartan-HCT 160-12.5 mg QD; will try lowering her Amlodipine to 2.5 mg QD due to her increasing dizziness/lightheadedness lately Have noted that her blood pressure, especially her systolic BP, has been running much lower than before over the past few months Patient is instructed to continue monitoring her blood pressure regularly (2) Pure hypercholesterolemia: Code(s): E78.00 - Pure hypercholesterolemia, unspecified Plan: Results of her labs done last month reviewed and discussed with patient - advised that her cholesterol levels have improved significantly from previous Reinforced low cholesterol diet Will recheck her labs and fasting lipids in 4 months for follow up (3) COPD (chronic obstructive pulmonary disease): Code(s): J44.9 - Chronic obstructive pulmonary disease, unspecified Qualifiers: COPD type: unspecified COPD Qualified Code(s): J44.9 - Chronic obstructive pulmonary disease, unspecified Plan: Stable, although patient is still actively smoking Continue Incruse Ellipta 62.5 mcg 1 inhalation QD, Flovent HFA 110 mcg 1 inhalation BID and Albuterol HFA 2 inhalations every 6 hours PRN (4) GERD without esophagitis: Code(s): K21.9 - Gastro-esophageal reflux disease without esophagitis Plan: Dietary restrictions reinforced Continue Omeprazole 40 mg QD (5) Osteoarthritis of spine with radiculopathy, cervical region: Comment: Repeat x-rays of the cervical spine done in 2019 showed (+) cervical disc disease Code(s): M47.22 - Other spondylosis with radiculopathy, cervical region Plan: States that her neck symptoms have been stable and adequately controlled and have not really bothered her in a while now (6) Smoker: Code(s): F17.200 - Nicotine dependence, unspecified, uncomplicated Plan: Counseled again on smoking cessation Plan Follow up in 4 months Orders: Orders Lipid Panel 4 Months E78.00 - Pure hypercholesterolemia, unspecified Comprehensive [place]. Panel Fast 4 Months E78.00 - Pure hypercholesterolemia, unspecified Complete Blood Count Auto Diff 4 Months I10 - Essential (primary) hypertension TSH reflex Free T4 4 Months E78.00 - Pure hypercholesterolemia, unspecified UA CC w/rflx Micro + Cult 4 Months R30.0 - Dysuria Medications: Changed From amlodipine 5 mg PO DAILY 90 tabs 1RF To amlodipine 2.5 mg PO DAILY 90 days 90 tabs 1RF Coding Level of Care Code Est Pt Level 4 (89148) Diagnoses Benign essential hypertension I10 Pure hypercholesterolemia E78.00 Chronic obstructive pulmonary disease, unspecified COPD type J44.9 COPD type: unspecified COPD GERD without esophagitis K21.9 Osteoarthritis of spine with radiculopathy, cervical region M47.22 Smoker F17.200
== END 2023-03-21 13:32 | disposition home or self-care (01) ==
PROVIDERS: PCP Internal Medicine; Visit Provider Internal Medicine
DX: I10 Essential (primary) hypertension (principal); E78.00 Pure hypercholesterolemia, unspecified; J44.9 Chronic obstructive pulmonary disease, unspecified; K21.9 Gastro-esophageal reflux disease without esophagitis; M47.22 Other spondylosis with radiculopathy, cervical region; F17.200 Nicotine dependence, unspecified, uncomplicated
CPT/HCPCS: 99214

== ENCOUNTER 2023-07-06 14:16 | Outpatient (AMB) | payer MEDICARE, SELFPAY ==
[2023-07-06 14:18] VITALS: BP 122/80; PULSE 64; O2SAT 93; BMI 19.0
--- NOTE | 2023-07-06 14:18 | A.OFFPC_ITS ---
Vital Signs 07/06/23 14:18 Height 5 ft 2 in Weight 104 lb 2 oz BMI 19.0 BP 122/80 Blood Pressure Location Lt brachial Position Sitting Pulse 64 Pulse Source Pulse Oximeter Pulse Oximetry (%) 93 Oxygen Delivery Method Room Air Intake Visit Reasons: 3 month f/u Sliver Former Required: No Accompanied by: Self / Same As Patient Allergies oxycodone [Percocet] Allergy (Unknown, Verified 07/06/23 15:04) Vomiting strawberry [STRAWBERRY] Allergy (Unknown, Verified 07/06/23 15:04) ITCHY Medication List - Last Reconciled 07/06/23 by Jacob Jones MD albuterol sulfate 90 mcg/actuation (ProAir HFA) 2 puffs inhalation Q6H PRN 30 days amlodipine 2.5 mg PO DAILY 90 days fluticasone propionate 110 mcg/actuation (Flovent HFA) 1 puff inhalation BID Incruse Ellipta 62.5 mcg/actuation (umeclidinium) 1 inh inhalation DAILY 30 days NS omeprazole 40 mg PO DAILY valsartan-hydrochlorothiazide 160-12.5 mg 1 tab PO DAILY 90 days Tobacco use date assessed: 07/06/23 Fall risk assessment: No Falls in past year Last assessed Fall Risk: 07/06/23 Dental Screening Dental Screen Date: 07/06/23 Did you have a dental visit in the last 12 months?: No Did you have a dental problem in the last 6 months where you did not have access to dental care?: No Was dental information given to patient?: No HPI 3 month f/u HPI Details Patient comes in today for her follow up visit States that she feels okay She denies any headaches or dizziness Denies any chest pains; states that she has been experiencing on and off shortness of breath and some chest tightness at times as she has been out of her inhalers for a while now No nausea/vomiting, no abdominal pain No change in bowel habits noted Needs all of her inhalers Rx refilled - states that she has been out of her inhalers (Incruse, Flovent) for about 3 to 4 months now and for reasons she cannot understand, could not get them refilled at her pharmacy Patient was not able to get follow up labs done prior to her visit today [facility]LY [facility], [facility] Medical History Pure hypercholesterolemia COVID-19 vaccine series completed Blood in stool Benign microscopic hematuria Smoker GERD without esophagitis Osteoarthritis of spine with radiculopathy, cervical region Benign essential hypertension COPD (chronic obstructive pulmonary disease) Surgical History History of esophagogastroduodenoscopy (EGD) Hx of colonoscopy History of cataract extraction History of cystoscopy History of breast lump/mass excision Family History Father Hypertension Cerebral aneurysm Mother Cerebral aneurysm Cancer Sister No problems noted. Other Substance abuse Social History Housing: House Are you a primary resident care coordinator to a significant other at home: No Do you presently have visiting nurse or other home services: No Alcohol intake: current Alcohol intake frequency: holidays/special occasions only Patient Tobacco Use Status: Current everyday Tobacco user Tobacco use type: Cigarette Cigarettes Per Day: 10 e-Cigarette/Vaping Use: Never Used Second Hand Smoke Exposure: Yes service: No Current occupational status: retired Cognitive needs: No Hearing needs: No Vision needs: Yes Questionnaire PHQ-9 Over the last 2 weeks, how often have you been bothered by any of the following problems? 1. Little interest or pleasure in doing things: not at all 2. Feeling down, depressed, or hopeless: not at all 3. Trouble falling or staying asleep, or sleeping too much: not at all 4. Feeling tired or having little energy: not at all 5. Poor appetite or overeating: not at all 6. Feeling bad about yourself - or that you are a failure or have let yourself or your family down: not at all 7. Trouble concentrating on things, such as reading the newspaper or watching television: not at all 8. Moving or speaking so slowly that other people could have noticed. Or the opposite - being so fidgety or restless that you have been moving around a lot more than usual: not at all 9. Thoughts that you would be better off or of hurting yourself in some way: not at all Total score: 0 Depression Screening Interpretation: Negative Depression Screening Done: Yes 60464 - PHQ-9 Billing: Yes Source: Developed by Drs. Luis Antonio Myers, Angelita Young, Bhavin Angulo and colleagues, with an educational river from [employer]. Thrive Questionnaire Date Thrive assessed: 07/06/23 I am a: Patient What is your living situation today?: I have a steady place to live Within the past 12 months, did the food you bought not last and you didn't have the money to get more?: Never true Within the past 12 months, did you worry whether your food would run out before you got money to buy more?: Never true Do you have trouble paying for medicines?: No Do you have trouble getting transportation to medical appointments?: No Do you have trouble paying your heating and electricity bill?: No Do you have trouble taking care of your child, family member or friend?: No Do you have trouble with day-to-day activities such as bathing, preparing meals, shopping, managing finances, etc.?: No Are you currently unemployed and looking for a job?: No Are you interested in more education?: No Please select the resources that you would like help with: None Currently or been in a relationship where the following occur: no concerns reported THRIVE Score: 0 AUDIT C Alcohol Use Questionnaire (AUDIT-C) 1. How often do you have a drink containing alcohol?: Monthly or less 2. How many drinks containing alcohol do you have on a typical day when you are drinking?: 1 or 2 3. How often do you have six or more drinks on one occasion?: Never Total Score: 1 Score Reviewed/Action Taken: Yes ARAMIS-7 AMB Questionnaire ARAMIS-7 Date ARAMIS - 7 assessed: 07/06/23 Feeling nervous, anxious, or on edge: 0 = Not at all Not being able to stop or control worryin = Not at all Worrying too much about different things: 0 = Not at all Trouble relaxin = Not at all Being so restless that it is hard to sit still: 0 = Not at all Becoming easily annoyed or irritable: 0 = Not at all Feeling afraid as if something awful might happen: 0 = Not at all Total ARAMIS-7 score (0-4 normal; 5-9 mild; 10-14 moderate; 15-21 severe): 0 Source: Developed by Drs. Luis Antonio Myers, Angelita Young, Bhavin Angulo and colleagues, with an educational river from [employer]. Review of Systems Const Denies chills, Denies fatigue, Denies fever(s) and Denies headache(s) ENT Denies dysphagia, Denies dizziness, Denies otalgia, Denies headache(s), Denies neck pain, Denies odynophagia and Denies sore throat Card Denies chest pain, Denies palpitations and Reports dyspnea on exertion (mild) Resp Denies cough, Reports dyspnea on exertion (mild) and Denies wheezing GI Denies abdominal pain, Denies constipation, Denies dysphagia, Denies heartburn, Denies diarrhea, Denies nausea, Denies odynophagia and Denies vomiting Denies difficulty voiding, Denies nocturia, Denies dysuria and Denies urinary urgency Musc Denies neck pain Skin/Breast Denies rash Neuro Denies dizziness and Denies headache(s) Psych Reports anxiety Endo Denies fatigue and Denies palpitations Aller/Immun Denies wheezing Physical exam (Primary Care) Vital Signs: Last Vital Signs Pulse 64 07/06/23 14:18 BP 122/80 07/06/23 14:18 Pulse Ox 93 07/06/23 14:18 Oxygen Delivery Method Room Air 07/06/23 14:18 BMI result Body Mass Index 19.0 Tobacco/Smoking Status: Tobacco use Status Tobacco use date assessed 07/06/23 07/06/23 14:19 Patient Tobacco Use Status Current everyday Tobacco 07/06/23 14:19 Tobacco use type Cigarette 07/06/23 14:19 e-Cigarette/Vaping Use Never Used 07/06/23 14:19 PHQ-9: PHQ-9 Score PHQ-9: Total score 0 07/06/23 15:11 Depression Screening Interpretation: Negative Thrive Assessment: Date of Thrive Assessment Date Thrive assessed 07/06/23 07/06/23 14:19 Currently or been in a relationship where the following occur: no concerns reported Const General: no acute distress and alert HENMT Ears: TM's normal bilaterally and EAC's normal Throat: Yes posterior oropharynx normal and Yes tonsils normal (no TP congestion noted) Neck Neck: Yes no lymphadenopathy and Yes supple Resp Auscultation: no rales, no wheezes and diminished lung sounds (slightly) bila teral Cardio Rate: regular rate Rhythm: regular rhythm Heart sounds: no murmurs GI Palpation (GI): Soft to palpation and nontender Auscultation: normal bowel sounds General: Yes no CVA tenderness Back/Spine/Pelvis Back: no CVA tenderness Skin Rashes: no rashes Extrem General: Yes no clubbing, cyanosis or edema Assessment and Plan Assessment & Plan (1) Benign essential hypertension: Code(s): I10 - Essential (primary) hypertension Plan: Reinforced low sodium diet - goal is systolic BP of 120 to 130 mm or less Continue Valsartan-HCT 160-12.5 mg QD and Amlodipine 2.5 mg QD States that her previous dizziness has resolved when her Amlodipine dosage was lowered to 2.5 mg Patient is reminded to continue monitoring her blood pressure regularly (2) Pure hypercholesterolemia: Code(s): E78.00 - Pure hypercholesterolemia, unspecified Plan: Patient was not able to get her follow-up labs done prior to her visit today Reinforced low cholesterol diet Will recheck her labs and fasting lipids in 4 months for follow up - will just have patient use her current orders (updated) for her next lab draw (3) COPD (chronic obstructive pulmonary disease): Code(s): J44.9 - Chronic obstructive pulmonary disease, unspecified Qualifiers: COPD type: unspecified COPD Qualified Code(s): J44.9 - Chronic obstructive pulmonary disease, unspecified Plan: Patient inexplicably could not get her inhalers refilled and has been out of her inhalers for 3 to 4 months now Will send in her Rx refills and have her get started back on her inhalers - Incruse Ellipta 62.5 mcg 1 inhalation QD, Flovent HFA 110 mcg 1 inhalation BID and Albuterol HFA 2 inhalations every 6 hours PRN (4) GERD without esophagitis: Code(s): K21.9 - Gastro-esophageal reflux disease without esophagitis Plan: Dietary restrictions reinforced Continue Omeprazole 40 mg QD (5) Osteoarthritis of spine with radiculopathy, cervical region: Comment: Repeat x-rays of the cervical spine done in 2019 showed (+) cervical disc disease Code(s): M47.22 - Other spondylosis with radiculopathy, cervical region Plan: States that her neck symptoms have been stable and adequately controlled and have not really bothered her in a while now (6) Smoker: Code(s): F17.200 - Nicotine dependence, unspecified, uncomplicated Plan: Counseled again on smoking cessation Plan Follow up in 4 months Orders: Orders Vitamin D 25-OH Total 10/21/23 E55.9 - Vitamin D deficiency, unspecified Medications: Changed From Incruse Ellipta 62.5 mcg/actuation (umeclidinium) 1 inh inhalation DAILY 30 days 30 ea 5RF NS To Incruse Ellipta 62.5 mcg/actuation (umeclidinium) 1 inh inhalation DAILY 90 days 90 ea 3RF NS From fluticasone propionate 110 mcg/actuation (Flovent HFA) 1 puff inhalation BID To fluticasone propionate 110 mcg/actuation (Flovent HFA) 1 puff inhalation BID 90 days 3 multiple units 3RF Coding Level of Care Code Est Pt Level 4 (55091) Diagnoses Benign essential hypertension I10 Pure hypercholesterolemia E78.00 Chronic obstructive pulmonary disease, unspecified COPD type J44.9 COPD type: unspecified COPD GERD without esophagitis K21.9 Osteoarthritis of spine with radiculopathy, cervical region M47.22 Smoker F17.200
== END 2023-07-06 15:12 | disposition home or self-care (01) ==
PROVIDERS: PCP Internal Medicine; Visit Provider Internal Medicine
DX: I10 Essential (primary) hypertension (principal); E78.00 Pure hypercholesterolemia, unspecified; J44.9 Chronic obstructive pulmonary disease, unspecified; K21.9 Gastro-esophageal reflux disease without esophagitis; M47.22 Other spondylosis with radiculopathy, cervical region; F17.200 Nicotine dependence, unspecified, uncomplicated
CPT/HCPCS: 99214

== ENCOUNTER 2023-09-28 12:06 | Outpatient (AMB) | payer MEDICARE, SELFPAY ==
--- NOTE | 2023-09-28 12:09 | AM.OFFWIN_ITS ---
Intake Vital Signs 3 09/28/23 12:15 Height 5 ft 2 in BP 110/66 Blood Pressure Location Lt brachial Position Sitting Pulse 76 Pulse Source Pulse Oximeter Temp 97.9 F Temp Source Oral Pulse Oximetry (%) 95 Oxygen Delivery Method Room Air Intake Visit Reasons: EP RT leg ?bite Intake Note: pt is here for right leg infection, possible bite ongoing infection for 5 weeks Patient Tobacco Use Status: Current everyday Tobacco user Allergies oxycodone [Percocet] Allergy (Unknown, Verified 09/28/23 12:16) Vomiting strawberry [STRAWBERRY] Allergy (Unknown, Verified 09/28/23 12:16) ITCHY Medication List - Last Reconciled 09/28/23 by Tiera Boston MD albuterol sulfate 90 mcg/actuation (ProAir HFA) 2 puffs inhalation Q6H PRN 30 days amlodipine 2.5 mg PO DAILY 90 days fluticasone propionate 110 mcg/actuation (Flovent HFA) 1 puff inhalation BID 90 days Incruse Ellipta 62.5 mcg/actuation (umeclidinium) 1 inh inhalation DAILY 90 days NS omeprazole 40 mg PO DAILY valsartan-hydrochlorothiazide 160-12.5 mg 1 tab PO DAILY 90 days Do you need a note to return to daycare/school/sports/work: No HPI EP RT leg ?bite 2 HPI0 Details Patient is a 68-year-old female came in today to be evaluated of leg infection right side Which is there for the past 5 weeks Patient has been trying to heal it at home Patient says that it jang On examination she has a localized papule with some erythema surrounding There is no pus, slight discomfort with palpation. Size 1 in x 1 in I am treating it with Augmentin b.i.d. for 7 days Patient was instructed to keep the skin dry and clean and covered with Band-Aid. I would also recommend for to get tetanus vaccine from pharmacy when she will go merchandise pickup/receiving associate the medication As we do not have the stock at the moment [facility] Medical History Pure hypercholesterolemia COVID-19 vaccine series completed Blood in stool Benign microscopic hematuria Smoker GERD without esophagitis Osteoarthritis of spine with radiculopathy, cervical region Benign essential hypertension COPD (chronic obstructive pulmonary disease) Surgical History History of esophagogastroduodenoscopy (EGD) Hx of colonoscopy History of cataract extraction History of cystoscopy History of breast lump/mass excision Family History Father Hypertension Cerebral aneurysm Mother Cerebral aneurysm Cancer Sister No problems noted. Other Substance abuse Social History Housing: House Are you a primary care program director to a significant other at home: No Do you presently have visiting nurse or other home services: No Alcohol intake: current Alcohol intake frequency: holidays/special occasions only Patient Tobacco Use Status: Current everyday Tobacco user Tobacco use type: Cigarette Cigarettes Per Day: 10 e-Cigarette/Vaping Use: Never Used Second Hand Smoke Exposure: Yes service: No Current occupational status: retired Cognitive needs: No Hearing needs: No Vision needs: Yes Review of Systems Const All systems reviewed & are unremarkable except as noted in HPI and below Physical Exam Vital Signs: Last Vital Signs Temp 97.9 F 09/28/23 12:15 Pulse 76 09/28/23 12:15 BP 110/66 09/28/23 12:15 Pulse Ox 95 09/28/23 12:15 Oxygen Delivery Method Room Air 09/28/23 12:15 Const General: no acute distress Orientation/consciousness: patient oriented x3 Eyes General: appearance normal, both eyes and all related structures Resp Effort & Inspection: normal respiratory effort and able to speak in complete sentences Auscultation: clear to auscultation bilaterally Skin Full body images: 2 1. 1 in x 1 in raised papule with surrounding erythema, no signs of pus Neuro General: patient oriented x3 Psych Mental Status: mental status grossly normal Assessment & Plan Assessment & Plan (1) Cellulitis of right lower leg: Code(s): L03.115 - Cellulitis of right lower limb Plan Patient is a 68-year-old female came in today to be evaluated of leg infection right side Which is there for the past 5 weeks Patient has been trying to heal it at home Patient says that it jang On examination she has a localized papule with some erythema surrounding There is no pus, slight discomfort with palpation. Size 1 in x 1 in I am treating it with Augmentin b.i.d. for 7 days Patient was instructed to keep the skin dry and clean and covered with Band-Aid. 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
[2023-09-28 12:15] VITALS: BP 110/66; PULSE 76; TEMP 36.6; O2SAT 95
== END 2023-09-28 13:12 | disposition home or self-care (01) ==
PROVIDERS: PCP Internal Medicine; Visit Provider Internal Medicine
DX: L03.115 Cellulitis of right lower limb (principal)
CPT/HCPCS: 99213

== ENCOUNTER 2023-10-12 07:51 | Outpatient (REF) | payer MEDICARE, SELFPAY ==
[2023-10-12 10:36] LABS: MANUAL DIFF FLAG NO
[2023-10-12 10:39] LABS: Hematocrit 41.6 % (37.0-47.0); Hemoglobin 14.2 g/dl (12.0-16.0); Imm Gran Pct Auto 0.3 % (0.0-0.4); Lymphocytes Percent Auto 32.7 % (20-40); Mean Corpuscular HGB Conc 34.1 g/dl (31.0-35.0); Mean Corpuscular Hemoglobin 32.5 pg (27.0-33.0); Mean Corpuscular Volume 95.2 fL (80.0-98.0); Mean Platelet Volume 10.3 fL (9.4-12.3); Neutrophils Percent Auto 56.5 % (45-73); Platelet Count 266 X10*3/uL (160-400); Red Blood Count 4.37 X10*6/uL (4.20-5.50); Red Cell Distribution Width 13.2 % (11.0-16.0); White Blood Count 6.6 X10*3/uL (4.8-10.8)
[2023-10-12 10:40] LABS: Appearance Urine Clear; Color Urine Yellow; Glucose Urine UA Negative (Negative); Leukocyte Esterase Urine Moderate (2+) (Negative); Nitrite Urine Negative (Negative); PH 7.5 (5.0-9.0); Specific Gravity - Urine <= 1.005 (1.005-1.025); UMIC TRIGGER UACC YES; Urine Blood Moderate (2+) (Negative); Urine Ketones Negative (Negative); Urine Protein Negative (Neg-Trace)
[2023-10-12 11:28] LABS: Alkaline Phosphatase 66 U/L (39-117); Bilirubin Total 0.4 mg/dL (0.0-1.0); Carbon Dioxide 26 mmol/L (22-29); Chloride 99 mmol/L (96-108); Cholesterol 190 mg/dL (<200); Estimated Glomerular Filt Rate > 60; Glucose Fasting 82 mg/dL (60-99); HDL Cholesterol 57 mg/dL (>40); LDL Cholesterol Calculated 109 mg/dL (<100); Potassium 3.6 mmol/L (3.3-5.1); Sodium 137 mmol/L (135-145); Triglycerides 124 mg/dL (<150)
[2023-10-12 11:44] LABS: TSH reflex Free T4 1.12 uIU/mL (0.32-4.0); Vitamin D 25-OH Total 35.9 ng/mL (>30)
== END 2023-10-12 07:52 | disposition home or self-care (01) ==
LOC: HO.HMGCLDS 07:51
PROVIDERS: PCP Internal Medicine; Visit Provider Internal Medicine
DX: I10 Essential (primary) hypertension (principal); E55.9 Vitamin D deficiency, unspecified; E78.00 Pure hypercholesterolemia, unspecified; R30.0 Dysuria
CPT/HCPCS: 36415; 80053; 80061; 81001; 82306; 84443; 85025

== ENCOUNTER 2023-10-18 10:42 | Outpatient (AMB) | payer MEDICARE, SELFPAY ==
[2023-10-18 10:51] VITALS: BP 130/70; PULSE 84; TEMP 36.3; O2SAT 92; BMI 19.0
--- NOTE | 2023-10-18 10:51 | AM.OFFWIN_ITS ---
Intake Vital Signs 10/18/23 10:51 Height 5 ft 2 in Weight 104 lb BMI 19.0 BP 130/70 Blood Pressure Location Lt brachial Position Sitting Pulse 84 Pulse Source Pulse Oximeter Temp 97.4 F Temp Source Temporal Artery Scan Pulse Oximetry (%) 92 Oxygen Delivery Method Room Air Intake Visit Reasons: EST/ right leg wound ongoing 2 months (mannie) Intake Note: pt is here today for rt leg wound ongoing started 2 months ago Patient Tobacco Use Status: Current everyday Tobacco user Allergies oxycodone [Percocet] Allergy (Unknown, Verified 10/18/23 10:55) Vomiting strawberry [STRAWBERRY] Allergy (Unknown, Verified 10/18/23 10:55) ITCHY Medication List - Last Reconciled 10/18/23 by HARRIETT Montejo albuterol sulfate 90 mcg/actuation (ProAir HFA) 2 puffs inhalation Q6H PRN 30 days amlodipine 2.5 mg PO DAILY 90 days fluticasone propionate 110 mcg/actuation (Flovent HFA) 1 puff inhalation BID 90 days Incruse Ellipta 62.5 mcg/actuation (umeclidinium) 1 inh inhalation DAILY 90 days NS omeprazole 40 mg PO DAILY sulfamethoxazole-trimethoprim 800-160 mg (Bactrim DS) 1 tab PO Q12H valsartan-hydrochlorothiazide 160-12.5 mg 1 tab PO DAILY 90 days Do you need a note to return to daycare/school/sports/work: Yes HPI HPI Comments History of Present Illness Details Patient is a 73-year-old female in today for wound check on right lower extremity. Patient was in the walk-in clinic 3 weeks prior for similar issue, was diagnosed with cellulitis, was given Augmentin. Patient states that she has completed the course the antibiotic however the pain, which is a burning feeling, remains. Patient states it feels like the pain has gotten worse over the past couple of weeks. reports redness around the wound. Denies discharge. His utilize [id number] medication with little relief. Denies fever or chills, denies tingling or numbness. [facility] Medical History Pure hypercholesterolemia COVID-19 vaccine series completed Blood in stool Benign microscopic hematuria Smoker GERD without esophagitis Osteoarthritis of spine with radiculopathy, cervical region Benign essential hypertension COPD (chronic obstructive pulmonary disease) Surgical History History of esophagogastroduodenoscopy (EGD) Hx of colonoscopy History of cataract extraction History of cystoscopy History of breast lump/mass excision Family History Father Hypertension Cerebral aneurysm Mother Cerebral aneurysm Cancer Sister No problems noted. Other Substance abuse Social History Housing: House Are you a primary care program director to a significant other at home: No Do you presently have visiting nurse or other home services: No Alcohol intake: current Alcohol intake frequency: holidays/special occasions only Patient Tobacco Use Status: Current everyday Tobacco user Tobacco use type: Cigarette Cigarettes Per Day: 10 e-Cigarette/Vaping Use: Never Used Second Hand Smoke Exposure: Yes service: No Current occupational status: retired Cognitive needs: No Hearing needs: No Vision needs: Yes Review of Systems Const All systems reviewed & are unremarkable except as noted in HPI and below Physical Exam Vital Signs: Last Vital Signs Temp 97.4 F 10/18/23 10:51 BP 130/70 10/18/23 10:51 BMI result Body Mass Index 19.0 Const Other: Appearance: Alert.? Oriented X3.? No acute distress.? Head: Normocephalic CVS: Normal heart rate and rhythm.? Pulses normal.? Respiratory: No respiratory distress.? Bilateral wheeze upper lobes. ? Skin: Dime sized lesions on RLE lateral to tibia, assisted down leg. Covered over, raised. No discharge. +Erythema. + Tenderness. Neuro: Oriented X 3.? No motor deficit.? No sensory deficit. Office Procedures Nebulizer Treatment Nebulizer Treatment [id number]/[id number] RX initial, or Nebulizer Subsequent Treatment Office Meds ipratropium 0.5 mg-albuterol 3 mg (2.5 mg base)/3 mL nebulization soln Performing Provider: HARRIETT Montejo Performing Location: [facility] Walk In [facility] Administered by: HARRIETT Montejo on 10/18/23 11:23 Dose Route Admin Location Dispensed Lot Number Expiration Date [employer] 3 mL inhalation 3 mL [id number] 07/14/24 31977-330-03 Assessment & Plan Assessment & Plan (1) Cellulitis of right lower leg: Comment: Will give patient Bactrim. Patient has been educated on red flags when to present back to the walk-in or when to present to the ER. Patient has been notified to follow-up with PCP if no improvement. Code(s): L03.115 - Cellulitis of right lower limb Plan: Take your medications as prescribed. If you were prescribed antibiotics today, it is important that you take your medication to their entirety, do not skip any doses, do not finish them early. Follow-up with your primary care provider this week. Return to the emergency department with new or worsening symptoms. Such as fevers, chills, chest pain, shortness of breath, nausea, vomiting, dizziness, headache, vision changes, lethargy In case of emergency call 911 (2) Wheeze: Comment: Will refill patient's albuterol. Patient has been educated on smoking cessation Code(s): R06.2 - Wheezing Plan: Follow up with pcp. Orders: Orders AMB Nebulizer Treatment Today R06.2 - Wheezing Medications: New sulfamethoxazole-trimethoprim 800-160 mg (Bactrim DS) 1 tab PO Q12H 14 tabs 0RF Refilled albuterol sulfate 90 mcg/actuation (ProAir HFA) 2 puffs inhalation Q6H PRN 8.5 grams 5RF Wheezing 30 days Coding Level of Care Code Est Pt Level 3 (03122) Diagnoses Cellulitis of right lower leg L03.115 Wheeze R06.2 CPT Codes Nebulizer Treatment - Nebulizer Treatment, initial or subsequent: 95393- Nebulizer/MDI RX initial, or Nebulizer Subsequent Treatment ([id number]) Time Spent (min) 34
== END 2023-10-18 12:11 | disposition home or self-care (01) ==
PROVIDERS: PCP Internal Medicine; Visit Provider Nurse Practitioner Primary Care
DX: L03.115 Cellulitis of right lower limb (principal); R06.2 Wheezing
CPT/HCPCS: 94640; 99213; J7620

== ENCOUNTER 2023-11-17 13:29 | Outpatient (AMB) | payer MEDICARE, SELFPAY ==
[2023-11-17 13:32] VITALS: BP 110/62; PULSE 77; O2SAT 95; BMI 18.8
--- NOTE | 2023-11-17 13:32 | MHC.PC.OV ---
Vital Signs 11/17/23 13:32 Height 5 ft 2 in Weight 103 lb 0.6 oz BMI 18.8 BP 110/62 Blood Pressure Location Lt brachial Position Sitting Pulse 77 Pulse Source Pulse Oximeter Pulse Oximetry (%) 95 Oxygen Delivery Method Room Air Intake Visit Reasons: Lump on RT leg Intake Note: patient stated bump on right leg Distance Learning Technician Required: No Allergies oxycodone [Percocet] Allergy (Unknown, Verified 11/17/23 14:14) Vomiting strawberry [STRAWBERRY] Allergy (Unknown, Verified 11/17/23 14:14) ITCHY Medication List - Last Reconciled 11/17/23 by Jacob Jones MD albuterol sulfate 90 mcg/actuation (ProAir HFA) 2 puffs inhalation Q6H PRN 30 days amlodipine 2.5 mg PO DAILY 90 days fluticasone propionate 110 mcg/actuation (Flovent HFA) 1 puff inhalation BID 90 days Incruse Ellipta 62.5 mcg/actuation (umeclidinium) 1 inh inhalation DAILY 90 days NS omeprazole 40 mg PO DAILY valsartan-hydrochlorothiazide 160-12.5 mg 1 tab PO DAILY 90 days Tobacco use date assessed: 11/17/23 Fall risk assessment: No Falls in past year Last assessed Fall Risk: 11/17/23 Dental Screening Dental Screen Date: 07/06/23 HPI Lump on RT leg HPI Details Patient comes in today for her follow up visit States that she has a noticeable bump on the anterior aspect of the right lower leg that has been present for the past 3.5 months now - recalls that she had some drainage from the nodule when it first appeared a few months ago States that she has been to the walk-in clinic twice in the past couple of months and both times, were treated with antibiotics for supposed cellulitis of her right leg Notes that she has been experiencing some pain over the nodular lesion on her leg lately and that it feels like it is burning when she is in the shower She does not recall any recent injury or trauma to her right leg She denies any fever, headaches or dizziness Denies any chest pains, no increased SOB No nausea/vomiting, no abdominal pain No change in bowel habits noted Had her follow up labs done last month - to discuss her resylts [facility] Medical History Pure hypercholesterolemia COVID-19 vaccine series completed Blood in stool Benign microscopic hematuria Smoker GERD without esophagitis Osteoarthritis of spine with radiculopathy, cervical region Benign essential hypertension COPD (chronic obstructive pulmonary disease) Surgical History History of esophagogastroduodenoscopy (EGD) Hx of colonoscopy History of cataract extraction History of cystoscopy History of breast lump/mass excision Family History Father Hypertension Cerebral aneurysm Mother Cerebral aneurysm Cancer Sister No problems noted. Other Substance abuse Social History Housing: House Are you a primary skin care therapist to a significant other at home: No Do you presently have visiting nurse or other home services: No Alcohol intake: current Alcohol intake frequency: holidays/special occasions only Patient Tobacco Use Status: Current everyday Tobacco user Tobacco use type: Cigarette Cigarettes Per Day: 10 e-Cigarette/Vaping Use: Never Used Second Hand Smoke Exposure: Yes service: No Current occupational status: retired Cognitive needs: No Hearing needs: No Vision needs: Yes Questionnaire Thrive Questionnaire Date Thrive assessed: 07/06/23 I am a: Patient What is your living situation today?: I have a steady place to live Within the past 12 months, did the food you bought not last and you didn't have the money to get more?: Never true Within the past 12 months, did you worry whether your food would run out before you got money to buy more?: Never true Do you have trouble paying for medicines?: No Do you have trouble getting transportation to medical appointments?: No Do you have trouble paying your heating and electricity bill?: No Do you have trouble taking care of your child, family member or friend?: No Do you have trouble with day-to-day activities such as bathing, preparing meals, shopping, managing finances, etc.?: No Are you currently unemployed and looking for a job?: No Are you interested in more education?: No Please select the resources that you would like help with: None Currently or been in a relationship where the following occur: no concerns reported THRIVE Score: 0 AUDIT C Alcohol Use Questionnaire (AUDIT-C) 1. How often do you have a drink containing alcohol?: Monthly or less 2. How many drinks containing alcohol do you have on a typical day when you are drinking?: 1 or 2 3. How often do you have six or more drinks on one occasion?: Never Total Score: 1 Score Reviewed/Action Taken: Yes ARAMIS-7 AMB Questionnaire ARAMIS-7 Date ARAMIS - 7 assessed: 07/06/23 Source: Developed by Drs. Luis Antonio Myers, Angelita Young, Bhavin Angulo and colleagues, with an educational river from [employer]. Review of Systems Const Denies chills, Denies fatigue, Denies fever(s) and Denies headache(s) ENT Denies dysphagia, Denies dizziness, Denies otalgia, Denies headache(s), Denies neck pain, Denies odynophagia and Denies sore throat Card Denies chest pain, Denies palpitations and Reports dyspnea on exertion (mild) Resp Denies cough, Reports dyspnea on exertion (mild) and Denies wheezing GI Denies abdominal pain, Denies constipation, Denies dysphagia, Denies heartburn, Denies diarrhea, Denies nausea, Denies odynophagia and Denies vomiting Denies difficulty voiding, Denies nocturia, Denies dysuria and Denies urinary urgency Musc Denies neck pain Skin/Breast Details: (+) raised lesion on the anterior aspect of the right lower leg Denies rash Neuro Denies dizziness and Denies headache(s) Psych Reports anxiety Endo Denies fatigue and Denies palpitations Aller/Immun Denies wheezing Physical exam (Primary Care) Vital Signs: Last Vital Signs Pulse 77 11/17/23 13:32 BP 110/62 11/17/23 13:32 Pulse Ox 95 11/17/23 13:32 Oxygen Delivery Method Room Air 11/17/23 13:32 BMI result Body Mass Index 18.8 Tobacco/Smoking Status: Tobacco use Status Tobacco use date assessed 11/17/23 11/17/23 13:33 Patient Tobacco Use Status Current everyday Tobacco 11/17/23 13:33 Tobacco use type Cigarette 11/17/23 13:33 e-Cigarette/Vaping Use Never Used 11/17/23 13:33 Thrive Assessment: Date of Thrive Assessment Date Thrive assessed 07/06/23 11/17/23 13:33 Currently or been in a relationship where the following occur: no concerns reported Const General: no acute distress and alert HENMT Ears: TM's normal bilaterally and EAC's normal Throat: Yes posterior oropharynx normal and Yes tonsils normal (no TP congestion noted) Neck Neck: Yes no lymphadenopathy and Yes supple Thyroid: Thyroid normal Resp Auscultation: no rales, no wheezes and diminished lung sounds (slightly) bilateral Cardio Rate: regular rate Rhythm: regular rhythm Heart sounds: no murmurs GI Palpation (GI): Soft to palpation and nontender Auscultation: normal bowel sounds General: Yes no CVA tenderness Back/Spine/Pelvis Back: no CVA tenderness Skin Rashes: no rashes Extrem Other: (+) small dime-sized raised nodular lesion on the anterior aspect of the right lower leg General: Yes no clubbing, cyanosis or edema Results Reviewed Results Reviewed: Laboratory Tests 10/12/23 10/12/23 10/12/23 06:56 07:58 08:00 WBC 6.6 Hgb 14.2 Hct 41.6 Plt Count 266 Sodium 137 Potassium 3.6 Creatinine 0.55 Estimated GFR > 60 Fasting Glucose 82 Calcium 9.8 AST 17 ALT 11 Triglycerides 124 Cholesterol 190 LDL Cholesterol, Calc 109 H HDL Cholesterol 57 25-OH Vitamin D Total 35.9 TSH 1.12 Ur Specific [place] <= 1.005 Urine Protein Negative Urine Glucose (UA) Negative Urine Blood Moderate (2+) H Urine Nitrite Negative Ur Leukocyte Esterase Moderate (2+) H Assessment and Plan Assessment & Plan (1) Leg lesion: Code(s): L98.9 - Disorder of the skin and subcutaneous tissue, unspecified Plan: Will send her for x-rays of the right leg for further evaluation Will also refer her to surgery for further evaluation and management and consideration for excision Bx of the lesion (2) Benign essential hypertension: Code(s): I10 - Essential (primary) hypertension Plan: Reinforced low sodium diet - goal is systolic BP of 120 to 130 mm or less Continue Valsartan-HCT 160-12.5 mg QD and Amlodipine 2.5 mg QD Patient is reminded to continue monitoring her blood pressure regularly (3) Pure hypercholesterolemia: Code(s): E78.00 - Pure hypercholesterolemia, unspecified Plan: Results of her labs done last month reviewed and discussed with patient Reinforced low cholesterol diet (4) COPD (chronic obstructive pulmonary disease): Code(s): J44.9 - Chronic obstructive pulmonary disease, unspecified Qualifiers: COPD type: unspecified COPD Qualified Code(s): J44.9 - Chronic obstructive pulmonary disease, unspecified Plan: Appears stable/controlled Continue Incruse Ellipta 62.5 mcg 1 inhalation QD, Flovent HFA 110 mcg 1 inhalation BID and Albuterol HFA 2 inhalations every 6 hours PRN (5) GERD without esophagitis: Code(s): K21.9 - Gastro-esophageal reflux disease without esophagitis Plan: Dietary restrictions reinforced Continue Omeprazole 40 mg QD (6) Osteoarthritis of spine with radiculopathy, cervical region: Comment: Repeat x-rays of the cervical spine done in 2019 showed (+) cervical disc disease Code(s): M47.22 - Other spondylosis with radiculopathy, cervical region Plan: States that her neck symptoms have been stable and adequately controlled and have not really bothered her in a while now (7) Smoker: Code(s): F17.200 - Nicotine dependence, unspecified, uncomplicated Plan: Counseled again on smoking cessation Plan Follow up in 3 months Orders: Orders XR tibia fibula RT 2V 11/17/23 L98.9 - Disorder of the skin and subcutaneous tissue, unspecified Referrals General Surgery Referral L98.9 - Disorder of the skin and subcutaneous tissue, unspecified Coding Level of Care Code Est Pt Level 4 (91706) Complex EM visit Add On G2211 Diagnoses Leg lesion L98.9 Benign essential hypertension I10 Pure hypercholesterolemia E78.00 Chronic obstructive pulmonary disease, unspecified COPD type J44.9 COPD type: unspecified COPD GERD without esophagitis K21.9 Osteoarthritis of spine with radiculopathy, cervical region M47.22 Smoker F17.200
== END 2023-11-17 14:21 | disposition home or self-care (01) ==
PROVIDERS: PCP Internal Medicine; Visit Provider Internal Medicine
DX: L98.9 Disorder of the skin and subcutaneous tissue, unspecified (principal); I10 Essential (primary) hypertension; E78.00 Pure hypercholesterolemia, unspecified; J44.9 Chronic obstructive pulmonary disease, unspecified; K21.9 Gastro-esophageal reflux disease without esophagitis; M47.22 Other spondylosis with radiculopathy, cervical region; F17.200 Nicotine dependence, unspecified, uncomplicated
CPT/HCPCS: 99214; G2211

== ENCOUNTER 2023-11-17 14:28 | Outpatient (REF) | payer MEDICARE, SELFPAY ==
--- NOTE | ~2023-11-17 | XR_ITS ---
EXAMINATION: XR TIBIA AND FIBULA, RIGHT CLINICAL INFORMATION: Disorder of the skin and subcutaneous tissue, unspecified Persistent right lower leg raised lesion COMPARISON: Right ankle 05/14/2022 TECHNIQUE: AP and lateral views of the right tibia and fibula were obtained. FINDINGS: The bones are intact. No fracture. No osseous lesions. In the mid aspect of the elliott, 1.25 cm is seen in the subcutaneous fat. This is of uncertain etiology. XR/XR tibia fibula RT 2V IMPRESSION: 1. No bony abnormality. 2. 1.25 cm is seen in the subcutaneous fat in the mid aspect of the elliott. This is of uncertain etiology.
== END 2023-11-17 14:29 | disposition home or self-care (01) ==
LOC: HO.XRAY 14:28
PROVIDERS: PCP Internal Medicine; Visit Provider Internal Medicine
DX: L98.9 Disorder of the skin and subcutaneous tissue, unspecified (principal)
CPT/HCPCS: 73590

== ENCOUNTER 2023-11-21 08:14 | Outpatient (AMB) | payer MEDICARE, SELFPAY ==
--- NOTE | 2023-11-21 08:16 | MHC.OFFVIS ---
Vital Signs 11/21/23 08:17 Height 5 ft 2 in Weight 104 lb BMI 19.0 BP 132/72 Blood Pressure Location Rt brachial Position Sitting Pulse 67 Intake Visit Reasons: Non healing lesion~ Rt lower leg Intake Note: Patient referred by Dr. Jones for non healing lesion on Rt lower leg. Present for 3.5m. Was treated with 2rounds of abx. Sulfa based abx helped. Patient c/o: enlarging, inflamed, red, tender to touch, jang, itchy. No personal hx of skin CA. Reports daughter hx of multiple non melanoma skin cancers. Oxygen Therapy Teacher Required: No Accompanied by: Self / Same As Patient Allergies oxycodone [Percocet] Allergy (Unknown, Verified 11/21/23 08:23) Vomiting strawberry [STRAWBERRY] Allergy (Unknown, Verified 11/21/23 08:23) ITCHY HPI Comments Details: Patient presents for evaluation of the right lower leg mass. She has had this at least 3 and half months time. His increasing in size, become more symptomatic. Select ever excised. She denies any trauma to the area. She has no such lesions elsewhere. Chart was reviewed and patient evaluate [facility] Medical History Pure hypercholesterolemia COVID-19 vaccine series completed Blood in stool Benign microscopic hematuria Smoker GERD without esophagitis Osteoarthritis of spine with radiculopathy, cervical region Benign essential hypertension COPD (chronic obstructive pulmonary disease) Surgical History History of esophagogastroduodenoscopy (EGD) Hx of colonoscopy History of cataract extraction History of cystoscopy History of breast lump/mass excision Family History Father Hypertension Cerebral aneurysm Mother Cerebral aneurysm Cancer Sister No problems noted. Other Substance abuse Social History Housing: House Are you a primary anesthesiologist and critical care to a significant other at home: No Do you presently have visiting nurse or other home services: No Alcohol intake: current Alcohol intake frequency: holidays/special occasions only Patient Tobacco Use Status: Current everyday Tobacco user Tobacco use type: Cigarette Cigarettes Per Day: 10 e-Cigarette/Vaping Use: Never Used Second Hand Smoke Exposure: Yes service: No Current occupational status: retired Cognitive needs: No Hearing needs: No Vision needs: Yes Physical Exam Vital Signs: Last Vital Signs Pulse 67 11/21/23 08:17 BP 132/72 11/21/23 08:17 BMI result Body Mass Index 19.0 Const Other: Very slender, thin female in no acute distress Chest Other: Chest breath sounds bilaterally, HS 1 in 2 GI Other: Abdomen is soft, benign Extrem Other: Lower extremities both grossly neurovascularly intact. Patient has a proximally 3 x 1 cm exophytic growth in the anterior lateral aspect of the mid right lower leg. No groin adenopathy. Assessment & Plan Assessment & Plan (1) Skin neoplasm: Code(s): D49.2 - Neoplasm of unspecified behavior of bone, soft tissue, and skin Category: Surgical (2) Leg lesion: Code(s): L98.9 - Disorder of the skin and subcutaneous tissue, unspecified Category: Surgical Plan There was a concern that this may be a skin neoplasm of former either basal cell carcinoma or squamous cell carcinoma. Risks, benefits, alternatives of excision were reviewed with the patient and included but not limited to bleeding, infection, recurrence, numbness, pain, scarring, seroma formation, wound dehiscence and the patient wishes to proceed. All questions answered. Arrangements made for this. Coding Level of Care Code New Pt Level 5 (27763) Diagnoses Skin neoplasm D49.2 Leg lesion L98.9
[2023-11-21 08:17] VITALS: BP 132/72; PULSE 67; BMI 19.0
== END 2023-11-21 08:40 | disposition home or self-care (01) ==
PROVIDERS: PCP Internal Medicine; Referring Provider Internal Medicine; Visit Provider Surgery
DX: D49.2 Neoplasm of unspecified behavior of bone, soft tissue, and skin (principal); L98.9 Disorder of the skin and subcutaneous tissue, unspecified
CPT/HCPCS: 99204

== ENCOUNTER → 2023-11-21 08:14 | Outpatient (BNVA) | payer MEDICARE, SELFPAY | PROVIDERS: PCP Internal Medicine; Referring Provider Internal Medicine; Visit Provider Surgery | DX: D49.2 Neoplasm of unspecified behavior of bone, soft tissue, and skin (principal); L98.9 Disorder of the skin and subcutaneous tissue, unspecified | CPT/HCPCS: 99202 ==

== ENCOUNTER 2023-12-23 05:53 | Day surgery (SDC) | payer MEDICARE, SELFPAY ==
[2023-12-19 11:18] VITALS: BMI 19.0
--- NOTE | 2023-12-22 11:11 | MHC.SHP ---
Pre-Procedural Eval Section A - 24 Hr Update-Section A only Date of Service: 12/23/23 The patient is an INPATIENT: No Changes since office visit: No Cold of Flu in the past 2 weeks, No New Medical Problems, No Changes in Medication and No Patient answered all questions Section B - Complete if H&P > 30 days Chief Complaint: Neoplasm,disorder of skin tissue Allergies: Allergies Allergy/AdvReac Type Severity Reaction Status Date / Time oxycodone [Percocet] Allergy Severe Vomiting Verified 12/19/23 10:55 strawberry [STRAWBERRY] Allergy Intermediate ITCHY all Verified 12/19/23 10:55 over Review of Systems Sugical H&P ROS: Negative: Constitution, Cardiovascular, Respiratory, Neurological, Psychiatric, Hem-Onc, Allergic/Immunologic, Gastrointestinal, Genitourinary, Musculoskeletal, Integumentary, Endocrine and Eyes/Ears/Nose/Throat Exam Surgical H&P Exam: Normal: HEENT, Normal: Heart, Normal: Lungs, Normal: Extremities, Normal: Abdomen, Normal: Skin and Normal: Neurological Plan I have reviewed the history and physical and performed a pertinent physical examination on my patient. No changes have occurred unless specified. Time Spent With Patient Time: Total time managing care of this patient today ____ minutes.
[2023-12-23 06:15] VITALS: BMI 19.1
[2023-12-23 06:21] VITALS: BP 129/57; PULSE 69; RESP 16; TEMP 36.4; O2SAT 94
[2023-12-23] MEDS: Lactated Ringers 1,000 ML 100 ML IVCONT (06:32)
--- NOTE | 2023-12-23 07:20 | HO.ANESPROP2 ---
Documented by User: Lydia Whelan NP 12/21/23 14:28 HPI - Anesthesia Eval Consult details Narrative: 73yo F for Right Wide Local Excision of skin tumor lower Extremity PMFSH Active Problems Active Problems: All Active Problems Skin neoplasm (Acute) Leg lesion (Acute) Wheeze (Acute) Cellulitis of right lower leg (Acute) Sprain of ankle, right (Acute) Breast cancer, left (Acute) Pain of left breast (Acute) Chest heaviness (Acute) Encounter for Medicare annual wellness exam (Acute) Pure hypercholesterolemia (Acute) Blood in stool (Acute) Benign microscopic hematuria (Acute) Smoker (Acute) GERD without esophagitis (Acute) Osteoarthritis of spine with radiculopathy, cervical region (Acute) Benign essential hypertension (Acute) COPD (chronic obstructive pulmonary disease) (Acute) Past Medical History Medical History (Updated 12/19/23 @ 11:46 by Holly Lopez, RN) Seasonal allergies Stress at home Anxiety Hx of breast cancer Macular degeneration Pure hypercholesterolemia COVID-19 vaccine series completed Blood in stool Benign microscopic hematuria Smoker GERD without esophagitis Osteoarthritis of spine with radiculopathy, cervical region Benign essential hypertension COPD (chronic obstructive pulmonary disease) Family History Family History Father Hypertension Cerebral aneurysm Mother Cerebral aneurysm Cancer Sister No problems noted. Other Substance abuse Surgical History Surgical History (Updated 11/21/23 @ 08:30 by Tej Ordoñez MD) History of esophagogastroduodenoscopy (EGD) Hx of colonoscopy History of cataract extraction History of cystoscopy History of breast lump/mass excision Social History Social History (Updated 12/19/23 @ 11:17 by Holly Lopez RN) Household Members: Spouse Housing: House Are you a primary customer care professional to a significant other at home: No Do you presently have visiting nurse or other home services: No Alcohol intake: current Alcohol intake frequency: holidays/special occasions only Comment: aware of trip hazard Patient Tobacco Use Status: Current everyday Tobacco user Tobacco use type: Cigarette Cigarettes Per Day: 10 Smoked in Last 30 Days: Yes e-Cigarette/Vaping Use: Never Used Second Hand Smoke Exposure: Yes Use of substances other than those prescribed or required for medical reasons: No Have you been hit, kicked, punched, or otherwise hurt by someone within the past year? If so, by whom?: No Are you DNR?: No Advance Directives: No Advance Directives Information Provided: Yes Advance Directives on File: No Recently lost weight without trying: No Nutrition Risks: No Nutritional Risk service: No Current occupational status: retired Cognitive needs: No Hearing needs: No Vision needs: Yes Meds Allergies Allergy/AdvReac Type Severity Reaction Status Date / Time oxycodone [Percocet] Allergy Severe Vomiting Verified 12/19/23 10:55 strawberry [STRAWBERRY] Allergy Intermediate ITCHY all Verified 12/19/23 10:55 over Exam Height,Weight and Vital Signs: Height 5 ft 2 in Weight 47.174 kg Pertinent Lab Results Pertinent Lab Results: Laboratory Tests 10/12/23 10/12/23 06:56 07:58 WBC 6.6 Hgb 14.2 Hct 41.6 Plt Count 266 Sodium 137 Potassium 3.6 Chloride 99 Carbon Dioxide 26 BUN 10 Creatinine 0.55 Assessment and Plan Assessment Anesthesia Assessment: Chart Reviewed Documented by User: Chasidy Vasquez DO 12/23/23 07:21 [facility] Past Medical History Medical History (Updated 12/19/23 @ 11:46 by Holly Lopez RN) Seasonal allergies Stress at home Anxiety Hx of breast cancer Macular degeneration Pure hypercholesterolemia COVID-19 vaccine series completed Blood in stool Benign microscopic hematuria Smoker GERD without esophagitis Osteoarthritis of spine with radiculopathy, cervical region Benign essential hypertension COPD (chronic obstructive pulmonary disease) Family History Family History Father Hypertension Cerebral aneurysm Mother Cerebral aneurysm Cancer Sister No problems noted. Other Substance abuse Family history of problems with anesthesia: No Surgical History Surgical History (Updated 11/21/23 @ 08:30 by Tej Ordoñez MD) History of esophagogastroduodenoscopy (EGD) Hx of colonoscopy History of cataract extraction History of cystoscopy History of breast lump/mass excision History of Problems with Anesthesia: No Social History Social History (Updated 12/19/23 @ 11:17 by Holly Lopez RN) Household Members: Spouse Housing: House Are you a primary customer care professional to a significant other at home: No Do you presently have visiting nurse or other home services: No Alcohol intake: current Alcohol intake frequency: holidays/special occasions only Comment: aware of trip hazard Patient Tobacco Use Status: Current everyday Tobacco user Tobacco use type: Cigarette Cigarettes Per Day: 10 Smoked in Last 30 Days: Yes e-Cigarette/Vaping Use: Never Used Second Hand Smoke Exposure: Yes Use of substances other than those prescribed or required for medical reasons: No Have you been hit, kicked, punched, or otherwise hurt by someone within the past year? If so, by whom?: No Are you DNR?: No Advance Directives: No Advance Directives Information Provided: Yes Advance Directives on File: No Recently lost weight without trying: No Nutrition Risks: No Nutritional Risk service: No Current occupational status: retired Cognitive needs: No Hearing needs: No Vision needs: Yes Meds Allergies Allergy/AdvReac Type Severity Reaction Status Date / Time oxycodone [Percocet] Allergy Severe Vomiting Verified 12/19/23 10:55 strawberry [STRAWBERRY] Allergy Intermediate ITCHY all Verified 12/19/23 10:55 over Exam Exam Date and Time: December 23, 2023 0720 Height,Weight and Vital Signs: Height 5 ft 2 in Weight 47.174 kg Vital Signs Temperature 97.5 F 12/23/23 06:21 Pulse Rate 69 12/23/23 06:21 Respiratory Rate 16 12/23/23 06:21 Blood Pressure 129/57 L 12/23/23 06:21 Pulse Oximetry 94 12/23/23 06:21 Oxygen Delivery Method Room Air 12/23/23 06:21 Temperature 97.5 F 12/23/23 06:21 Pulse Rate 69 12/23/23 06:21 Respiratory Rate 16 12/23/23 06:21 Blood Pressure 129/57 L 12/23/23 06:21 Pulse Oximetry 94 12/23/23 06:21 Oxygen Delivery Method Room Air 12/23/23 06:21 Airway Mallampati Class: I TM Dist: >3cm Neck ROM: Full Denture: Upper and Lower Heart: S1S2 Lungs: CTAB Assessment and Plan Assessment Anesthesia Assessment: Anesthesia Plan Discussed and Chart Reviewed Final Anesthetic Review Family History of Problems with Anesthesia: No History of Problems with Anesthesia: No NPO: Yes ASA Class: III Final Preanesthetic Review: No Changes in Pt Med Stat, Meds/Allgs Chart Reviewed, Consent Obtained/Reviewed and Anes Risks/Benef Reviewed Patient Risk: Low Procedure Risk: Low Anesthetic Plan Anesthetic Plan: MAC: and Agree w/ Assess. and Plan Disposition: Standard PACU
[2023-12-23 08:04] VITALS: BP 102/50; PULSE 59; RESP 14; TEMP 36.7; O2SAT 98
[2023-12-23 08:09] VITALS: BP 112/53; PULSE 59; RESP 16; O2SAT 98
[2023-12-23 08:14] VITALS: BP 104/51; PULSE 62; RESP 16; O2SAT 98
[2023-12-23 08:19] VITALS: BP 116/56; PULSE 62; RESP 16; TEMP 36.5; O2SAT 97
[2023-12-23 08:34] VITALS: BP 124/56; PULSE 61; RESP 16; TEMP 36.5; O2SAT 97
--- NOTE | 2023-12-23 09:09 | P.OP_ITS ---
Operative Note Operative Note Date of Service: 12/23/23 Narrative: Preoperative diagnosis: [] Right anterior lateral lower extremity exophytic skin mass Postop diagnosis: [] The same Procedure [] wide local excision right proximal leg skin tumor Surgeon: [] [employer]: [] Love Type of Anesthesia: [] MAC Indication for surgery: [] Final specimen measured approximately 6 x 3 cm. This was tagged for orientation for pathology. Findings: [] Patient brought to the operating room, placed on operative table supine position, after adequate level of MAC anesthesia was induced, the right lower extremity was prepped and draped in usual sterile fashion. A longitudinal by elliptical incision was made to grossly clear margins to anterior lateral proximal right leg mass. The mentions were as described above. This carried down through skin, subcutaneous tissue, and undermined using Bovie. Medial and lateral skin flaps were developed using Bovie and the wound was irrigated, secured hemostasis, and closed using interrupted inverted dermal 3-0 Vicryl sutures followed by Steri-Strips and sterile dressings. Wound was infiltrated at the beginning at the end with 1% lidocaine/0.5% Marcaine. Sponge, needle, instrument counts reported correct. Patient tolerated the procedure well and emerged from anesthesia stable condition. EBL minimal
== END 2023-12-23 08:50 | disposition home or self-care (01) ==
PROVIDERS: PCP Internal Medicine; Visit Provider Surgery
PROC: (CPT 11406; principal; 2023-12-23 07:30)
DX: L85.8 Other specified epidermal thickening (principal); L98.9 Disorder of the skin and subcutaneous tissue, unspecified; D49.2 Neoplasm of unspecified behavior of bone, soft tissue, and skin
CPT/HCPCS: 11406; 88304; 88305; J0690; J2704; J2795; J3010

== ENCOUNTER → 2023-12-23 05:53 | Outpatient (BNV) | payer MEDICARE, SELFPAY | PROVIDERS: PCP Internal Medicine; Visit Provider Surgery | DX: L85.8 Other specified epidermal thickening (principal) | CPT/HCPCS: 11404 ==

== ENCOUNTER 2024-01-03 08:46 | Outpatient (AMB) | payer MEDICARE, SELFPAY ==
--- NOTE | 2024-01-03 08:48 | A.OFFVIS_ITS ---
Vital Signs 01/03/24 08:53 Weight 105 lb BP 135/64 Blood Pressure Location Rt brachial Position Sitting Pulse 73 Intake Visit Reasons: S/P WLE RLE skin tumor Intake Note: Patient here s/p WLE tumor RT ant lat lower leg. Reports incision healing well. Patient c/o: oozing clear yellowish discharge. WLE: 12-23-2023. Component Engineer Required: No Allergies oxycodone [Percocet] Allergy (Severe, Verified 01/03/24 08:54) Vomiting strawberry [STRAWBERRY] Allergy (Intermediate, Verified 01/03/24 08:54) ITCHY all over HPI Comments Details: Patient presents with a family member follow-up. She has no wound issues or complaints. Pathology was benign. [facility] Medical History Seasonal allergies Stress at home Anxiety Hx of breast cancer Macular degeneration Pure hypercholesterolemia COVID-19 vaccine series completed Blood in stool Benign microscopic hematuria Smoker GERD without esophagitis Osteoarthritis of spine with radiculopathy, cervical region Benign essential hypertension COPD (chronic obstructive pulmonary disease) Surgical History Hx of surgical procedure (12/23/23) History of esophagogastroduodenoscopy (EGD) Hx of colonoscopy History of cataract extraction History of cystoscopy History of breast lump/mass excision Family History Father Hypertension Cerebral aneurysm Mother Cerebral aneurysm Cancer Sister No problems noted. Other Substance abuse Social History Household Members: Spouse Housing: House Are you a primary assistant child care teacher to a significant other at home: No Do you presently have visiting nurse or other home services: No Alcohol intake: current Alcohol intake frequency: holidays/special occasions only Comment: aware of trip hazard Patient Tobacco Use Status: Current everyday Tobacco user Tobacco use type: Cigarette Cigarettes Per Day: 10 e-Cigarette/Vaping Use: Never Used Second Hand Smoke Exposure: Yes service: No Current occupational status: retired Cognitive needs: No Hearing needs: No Vision needs: Yes Physical Exam Vital Signs: Last Vital Signs Pulse 73 07/23/24 08:53 BP 135/64 01/03/24 08:53 Extrem Other: Left leg wound is healing uneventfully. I discussed with the patient at she needs to be relatively sedentary and elevate the extremity as much as possible to avoid any wound complications. Assessment & Plan Assessment & Plan (1) Postop check: Code(s): Z09 - Encounter for follow-up examination after completed treatment for conditions other than malignant neoplasm Category: Surgical Plan Patient has been given local instructions, and will otherwise follow-up p.r.n.. All questions answered. Coding Level of Care Code Global (00204) Diagnoses Postop check Z09
[2024-01-03 08:53] VITALS: BP 135/64; PULSE 73
== END 2024-01-03 09:07 | disposition home or self-care (01) ==
PROVIDERS: PCP Internal Medicine; Visit Provider Surgery
DX: Z09 Encounter for follow-up examination after completed treatment for conditions other than malignant neoplasm (principal)
CPT/HCPCS: 99024

== ENCOUNTER → 2024-01-03 08:46 | Outpatient (BNVA) | payer MEDICARE, SELFPAY | PROVIDERS: PCP Internal Medicine; Visit Provider Surgery | DX: Z09 Encounter for follow-up examination after completed treatment for conditions other than malignant neoplasm (principal) | CPT/HCPCS: 99212 ==

== ENCOUNTER 2024-02-22 14:53 | Outpatient (AMB) | payer MEDICARE, SELFPAY ==
--- NOTE | 2024-02-22 14:54 | A.OFFPC_ITS ---
Vital Signs 02/22/24 14:55 Height 5 ft 2 in Weight 101 lb 4 oz BMI 18.5 BP 102/78 Blood Pressure Location Lt brachial Position Sitting Pulse 74 Pulse Source Pulse Oximeter Pulse Oximetry (%) 93 Oxygen Delivery Method Room Air Intake Visit Reasons: 3mth f/u Therapy Site Coordinator Required: No Accompanied by: Self / Same As Patient Allergies oxycodone [Percocet] Allergy (Severe, Verified 02/22/24 15:19) Vomiting strawberry [STRAWBERRY] Allergy (Intermediate, Verified 02/22/24 15:19) ITCHY all over Medication List - Last Reconciled 02/22/24 by Jacob Jones MD albuterol sulfate 90 mcg/actuation (ProAir HFA) 2 puffs inhalation Q6H PRN 30 days amlodipine 2.5 mg PO DAILY 90 days ibuprofen 800 mg PO Q8H PRN Incruse Ellipta 62.5 mcg/actuation (umeclidinium) 1 inh inhalation DAILY 90 days NS omeprazole 40 mg PO DAILY valsartan-hydrochlorothiazide 160-12.5 mg 1 tab PO DAILY 90 days Tobacco use date assessed: 02/22/24 Fall risk assessment: No Falls in past year Last assessed Fall Risk: 02/22/24 Dental Screening Dental Screen Date: 02/22/24 Did you have a dental visit in the last 12 months?: No Did you have a dental problem in the last 6 months where you did not have access to dental care?: No Was dental information given to patient?: No HPI 3mth f/u HPI Details Patient comes in today for her follow up visit States that she feels okay She is glad that the lesion on her right lower leg is now gone - was surgically excised by Dr. 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) She denies any headaches or dizziness Denies any chest pains, no increased SOB No nausea/vomiting, no abdominal pain No change in bowel habits noted Needs a few of her Rx refilled PFSH Medical History Seasonal allergies Stress at home Anxiety Hx of breast cancer Macular degeneration Pure hypercholesterolemia COVID-19 vaccine series completed Blood in stool Benign microscopic hematuria Smoker GERD without esophagitis Osteoarthritis of spine with radiculopathy, cervical region Benign essential hypertension COPD (chronic obstructive pulmonary disease) Surgical History Hx of surgical procedure (12/23/23) History of esophagogastroduodenoscopy (EGD) Hx of colonoscopy History of cataract extraction History of cystoscopy History of breast lump/mass excision Family History Father Hypertension Cerebral aneurysm Mother Cerebral aneurysm Cancer Sister No problems noted. Other Substance abuse Social History Household Members: Spouse Housing: House Are you a primary career coach to a significant other at home: No Do you presently have visiting nurse or other home services: No Alcohol intake: current Alcohol intake frequency: holidays/special occasions only Comment: aware of trip hazard Patient Tobacco Use Status: Current everyday Tobacco user Tobacco use type: Cigarette Cigarettes Per Day: 10 e-Cigarette/Vaping Use: Never Used Second Hand Smoke Exposure: Yes service: No Current occupational status: retired Cognitive needs: No Hearing needs: No Vision needs: Yes Questionnaire PHQ-9 Over the last 2 weeks, how often have you been bothered by any of the following problems? 1. Little interest or pleasure in doing things: not at all 2. Feeling down, depressed, or hopeless: not at all 3. Trouble falling or staying asleep, or sleeping too much: not at all 4. Feeling tired or having little energy: not at all 5. Poor appetite or overeating: not at all 6. Feeling bad about yourself - or that you are a failure or have let yourself or your family down: not at all 7. Trouble concentrating on things, such as reading the newspaper or watching television: not at all 8. Moving or speaking so slowly that other people could have noticed. Or the opposite - being so fidgety or restless that you have been moving around a lot more than usual: not at all 9. Thoughts that you would be better off or of hurting yourself in some way: not at all Total score: 0 Depression Screening Interpretation: Negative Depression Screening Done: Yes 15416 - PHQ-9 Billing: Yes Source: Developed by Drs. Luis Antonio Myers, Angelita Young, Bhavin Angulo and colleagues, with an educational river from [employer]. Thrive Questionnaire Date Thrive assessed: 07/06/23 THRIVE Score: 0 ARAMIS-7 AMB Questionnaire ARAMIS-7 Date ARAMIS - 7 assessed: 07/06/23 Source: Developed by Drs. Luis Antonio Myers, Angelita Young, Bhavin Angulo and colleagues, with an educational river from [employer]. Review of Systems Const Denies chills, Reports fatigue (usually sometime in the mid-afternoon), Denies fever(s) and Denies headache(s) ENT Denies dysphagia, Denies dizziness, Denies otalgia, Denies headache(s), Denies neck pain, Denies odynophagia and Denies sore throat Card Denies chest pain, Denies palpitations and Reports dyspnea on exertion (mild) Resp Denies cough, Reports dyspnea on exertion (mild) and Denies wheezing GI Denies abdominal pain, Denies constipation, Denies dysphagia, Denies heartburn, Denies diarrhea, Denies nausea, Denies odynophagia and Denies vomiting Denies difficulty voiding, Denies nocturia, Denies dysuria and Denies urinary urgency Musc Denies back pain and Denies neck pain Skin/Breast Denies rash Neuro Denies dizziness and Denies headache(s) Psych Reports anxiety Endo Reports fatigue (usually sometime in the mid-afternoon) and Denies palpitations Aller/Immun Denies wheezing Physical exam (Primary Care) Vital Signs: Last Vital Signs Pulse 74 02/22/24 14:55 BP 102/78 02/22/24 14:55 Pulse Ox 93 02/22/24 14:55 Oxygen Delivery Method Room Air 02/22/24 14:55 BMI result Body Mass Index 18.5 Tobacco/Smoking Status: Tobacco use Status Tobacco use date assessed 02/22/24 02/22/24 14:57 Patient Tobacco Use Status Current everyday Tobacco 02/22/24 14:57 Tobacco use type Cigarette 02/22/24 14:57 e-Cigarette/Vaping Use Never Used 02/22/24 14:57 PHQ-9: PHQ-9 Score PHQ-9: Total score 0 02/22/24 14:57 Depression Screening Interpretation: Negative Thrive Assessment: Date of Thrive Assessment Date Thrive assessed 07/06/23 02/22/24 14:57 Const General: no acute distress and alert HENMT Ears: TM's normal bilaterally and EAC's normal Throat: Yes posterior oropharynx normal and Yes tonsils normal (no TP congestion noted) Neck Neck: Yes no lymphadenopathy and Yes supple Thyroid: Thyroid normal Resp Auscultation: no rales, no wheezes and diminished lung sounds (slightly) bilateral Cardio Rate: regular rate Rhythm: regular rhythm Heart sounds: no murmurs GI Palpation (GI): Soft to palpation and nontender Auscultation: normal bowel sounds General: Yes no CVA tenderness Back/Spine/Pelvis Back: no CVA tenderness Skin Rashes: no rashes Extrem General: Yes no clubbing, cyanosis or edema Assessment and Plan Assessment & Plan (1) Benign essential hypertension: Code(s): I10 - Essential (primary) hypertension Plan: Reinforced low sodium diet - goal is systolic BP of 120 to 130 mm or less Continue Valsartan-HCT 160-12.5 mg QD and Amlodipine 2.5 mg QD - Rx refilled Patient is reminded to continue monitoring her blood pressure regularly (2) Pure hypercholesterolemia: Code(s): E78.00 - Pure hypercholesterolemia, unspecified Plan: Reinforced low cholesterol diet Will have patient recheck her labs and fasting lipids in 4 months for follow up (3) COPD (chronic obstructive pulmonary disease): Code(s): J44.9 - Chronic obstructive pulmonary disease, unspecified Qualifiers: COPD type: unspecified COPD Qualified Code(s): J44.9 - Chronic obstructive pulmonary disease, unspecified Plan: Appears stable/controlled Continue Incruse Ellipta 62.5 mcg 1 inhalation QD (Rx refilled) and Albuterol HFA 2 inhalations every 6 hours PRN (4) GERD without esophagitis: Code(s): K21.9 - Gastro-esophageal reflux disease without esophagitis Plan: Dietary restrictions reinforced Continue Omeprazole 40 mg QD (5) Osteoarthritis of spine with radiculopathy, cervical region: Comment: Repeat x-rays of the cervical spine done in 2019 showed (+) cervical disc disease Code(s): M47.22 - Other spondylosis with radiculopathy, cervical region Plan: States that her neck symptoms have been stable and adequately controlled and have not really bothered her in a while now (6) Smoker: Code(s): F17.200 - Nicotine dependence, unspecified, uncomplicated Plan: Counseled again on smoking cessation Plan Follow up in 4 months Orders: Orders Complete Blood Count Auto Diff 4 Months D64.9 - Anemia, unspecified Lipid Panel 4 Months E78.00 - Pure hypercholesterolemia, unspecified TSH reflex Free T4 4 Months E78.00 - Pure hypercholesterolemia, unspecified UA CC w/rflx Micro + Cult 4 Months R30.0 - Dysuria Comprehensive [place]. Panel Fast 4 Months E78.00 - Pure hypercholesterolemia, u nspecified Vitamin D 25-OH Total 4 Months E55.9 - Vitamin D deficiency, unspecified Medications: Changed From albuterol sulfate 90 mcg/actuation (ProAir HFA) 2 puffs inhalation Q6H 30 days PRN 8.5 grams 5RF Wheezing To albuterol sulfate 90 mcg/actuation 2 puffs inhalation Q6H 30 days PRN 8.5 grams 5RF Wheezing Refilled Incruse Ellipta 62.5 mcg/actuation (umeclidinium) 1 inh inhalation DAILY 90 days 90 ea 3RF NS amlodipine 2.5 mg PO DAILY 90 days 90 tabs 1RF omeprazole 40 mg PO DAILY 90 caps 3RF Coding Level of Care Code Est Pt Level 4 (51459) Diagnoses Benign essential hypertension I10 Pure hypercholesterolemia E78.00 Chronic obstructive pulmonary disease, unspecified COPD type J44.9 COPD type: unspecified COPD GERD without esophagitis K21.9 Osteoarthritis of spine with radiculopathy, cervical region M47.22 Smoker F17.200
[2024-02-22 14:55] VITALS: BP 102/78; PULSE 74; O2SAT 93; BMI 18.5
== END 2024-02-22 15:25 | disposition home or self-care (01) ==
PROVIDERS: PCP Internal Medicine; Visit Provider Internal Medicine
DX: I10 Essential (primary) hypertension (principal); E78.00 Pure hypercholesterolemia, unspecified; J44.9 Chronic obstructive pulmonary disease, unspecified; K21.9 Gastro-esophageal reflux disease without esophagitis; M47.22 Other spondylosis with radiculopathy, cervical region; F17.200 Nicotine dependence, unspecified, uncomplicated
CPT/HCPCS: 99214

== ENCOUNTER 2024-07-12 11:57 | Outpatient (AMB) | payer MEDICARE, SELFPAY ==
[2024-07-12 12:22] VITALS: BP 118/76; PULSE 79; O2SAT 92; BMI 18.2
--- NOTE | 2024-07-12 12:22 | MHC.PC.OV ---
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 Required: No Accompanied by: Self / Same As Patient Allergies oxycodone [Percocet] Allergy (Severe, Verified 07/12/24 12:47) Vomiting strawberry [STRAWBERRY] Allergy (Intermediate, Verified 07/12/24 12:47) ITCHY all over Medication List - Last Reconciled 07/12/24 by Jacob Jones MD albuterol sulfate 90 mcg/actuation 2 puffs inhalation Q6H PRN 30 days amlodipine 2.5 mg PO DAILY 90 days ibuprofen 800 mg PO Q8H PRN Incruse Ellipta 62.5 mcg/actuation (umeclidinium) 1 inh inhalation DAILY 90 days NS omeprazole 40 mg PO DAILY valsartan-hydrochlorothiazide 160-12.5 mg 1 tab PO DAILY 90 days Tobacco use date assessed: 07/12/24 Fall risk assessment: No Falls in past year Last assessed Fall Risk: 07/12/24 Dental Screening Dental Screen Date: 07/12/24 Did you have a dental visit in the last 12 months?: No Did you have a dental problem in the last 6 months where you did not have access to dental care?: No Was dental information given to patient?: Patient has dentist HPI 4 month f/u HPI Details Patient comes in today for her follow up visit States that she feels okay She denies any headaches but states that she would still experience transient dizziness occasionally, mostly when she gets up too quickly She denies any chest pains, no increased SOB No nausea/vomiting, no abdominal pain No change in bowel habits noted She was not able to get her follow up labs done prior to her appointment today [facility] Medical History Seasonal allergies Stress at home Anxiety Hx of breast cancer Macular degeneration Pure hypercholesterolemia COVID-19 vaccine series completed Blood in stool Benign microscopic hematuria Smoker GERD without esophagitis Osteoarthritis of spine with radiculopathy, cervical region Benign essential hypertension COPD (chronic obstructive pulmonary disease) Surgical History Hx of surgical procedure (12/23/23) History of esophagogastroduodenoscopy (EGD) Hx of colonoscopy History of cataract extraction History of cystoscopy History of breast lump/mass excision Family History Father Hypertension Cerebral aneurysm Mother Cerebral aneurysm Cancer Sister No problems noted. Other Substance abuse Social History Household Members: Spouse Housing: House Are you a primary senior care manager to a significant other at home: No Do you presently have visiting nurse or other home services: No Alcohol intake: current Alcohol intake frequency: holidays/special occasions only Comment: aware of trip hazard Patient Tobacco Use Status: Current everyday Tobacco user Tobacco use type: Cigarette Cigarettes Per Day: 10 e-Cigarette/Vaping Use: Never Used Second Hand Smoke Exposure: Yes service: No Current occupational status: retired Cognitive needs: No Hearing needs: No Vision needs: Yes Questionnaire PHQ-9 Over the last 2 weeks, how often have you been bothered by any of the following problems? 1. Little interest or pleasure in doing things: not at all 2. Feeling down, depressed, or hopeless: not at all 3. Trouble falling or staying asleep, or sleeping too much: not at all 4. Feeling tired or having little energy: not at all 5. Poor appetite or overeating: not at all 6. Feeling bad about yourself - or that you are a failure or have let yourself or your family down: not at all 7. Trouble concentrating on things, such as reading the newspaper or watching television: not at all 8. Moving or speaking so slowly that other people could have noticed. Or the opposite - being so fidgety or restless that you have been moving around a lot more than usual: not at all 9. Thoughts that you would be better off or of hurting yourself in some way: not at all Total score: 0 Depression Screening Interpretation: Negative Depression Screening Done: Yes 29909 - PHQ-9 Billing: Yes Source: Developed by Drs. Luis Antonio Myers, AngelitaBhavin Gaming and colleagues, with an educational river from [employer]. Thrive Questionnaire Date Thrive assessed: 07/12/24 I am a: Patient What is your living situation today?: I have a steady place to live Within the past 12 months, did the food you bought not last and you didn't have the money to get more?: Never true Within the past 12 months, did you worry whether your food would run out before you got money to buy more?: Never true Do you have trouble paying for medicines?: No Do you have trouble getting transportation to medical appointments?: No Do you have trouble paying your heating and electricity bill?: No Do you have trouble taking care of your child, family member or friend?: No Do you have trouble with day-to-day activities such as bathing, preparing meals, shopping, managing finances, etc.?: No Are you currently unemployed and looking for a job?: No Are you interested in more education?: No Please select the resources that you would like help with: None Currently or been in a relationship where the following occur: No concerns reported THRIVE Score: 0 AUDIT C Alcohol Use Questionnaire (AUDIT-C) 1. How often do you have a drink containing alcohol?: Monthly or less 2. How many drinks containing alcohol do you have on a typical day when you are drinking?: 1 or 2 3. How often do you have six or more drinks on one occasion?: Never Total Score: 1 Score Reviewed/Action Taken: Yes ARAMIS-7 AMB Questionnaire ARAMIS-7 Date ARAMIS - 7 assessed: 07/12/24 Feeling nervous, anxious, or on edge: 0 = Not at all Not being able to stop or control worryin = Not at all Worrying too much about different things: 0 = Not at all Trouble relaxin = Not at all Being so restless that it is hard to sit still: 0 = Not at all Becoming easily annoyed or irritable: 0 = Not at all Feeling afraid as if something awful might happen: 0 = Not at all Total ARAMIS-7 score (0-4 normal; 5-9 mild; 10-14 moderate; 15-21 severe): 0 Source: Developed by Drs. Luis Antonio Myers, Bhavin Smith and colleagues, with an educational river from [employer]. Review of Systems Const Denies chills, Reports fatigue (usually sometime in the mid-afternoon), Denies fever(s) and Denies headache(s) ENT Denies dysphagia, Reports dizziness (occasional, transient, mostly when she gets up too quickly), Denies otalgia, Denies headache(s), Reports neck pain (on and off, chronic), Denies odynophagia and Denies sore throat Card Denies chest pain, Denies irregular heart rhythm, Denies palpitations and Reports dyspnea on exertion (mild) Resp Denies chest congestion, Denies cough and Reports dyspnea on exertion (mild) GI Denies abdominal pain, Denies constipation, Denies dysphagia, Denies heartburn, Denies diarrhea, Denies nausea, Denies odynophagia and Denies vomiting Denies difficulty voiding, Denies nocturia, Denies dysuria and Denies urinary urgency Musc Denies back pain and Reports neck pain (on and off, chronic) Skin/Breast Denies rash Neuro Reports dizziness (occasional, transient, mostly when she gets up too quickly) and Denies headache(s) Psych Reports anxiety Endo Reports fatigue (usually sometime in the mid-afternoon) and Denies palpitations Physical exam (Primary Care) Vital Signs: Last Vital Signs Pulse 79 07/12/24 12:22 BP 118/76 07/12/24 12:22 Pulse Ox 92 07/12/24 12:22 Oxygen Delivery Method Room Air 07/12/24 12:22 BMI result Body Mass Index 18.2 Tobacco/Smoking Status: Tobacco use Status Tobacco use date assessed 07/12/24 07/12/24 12:30 Patient Tobacco Use Status Current everyday Tobacco 07/12/24 12:30 Tobacco use type Cigarette 07/12/24 12:30 e-Cigarette/Vaping Use Never Used 07/12/24 12:30 PHQ-9: PHQ-9 Score PHQ-9: Total score 0 07/12/24 12:49 Depression Screening Interpretation: Negative Thrive Assessment: Date of Thrive Assessment Date Thrive assessed 07/12/24 07/12/24 12:30 Currently or been in a relationship where the following occur: No concerns reported Const General: no acute distress and alert HENMT Ears: TM's normal bilaterally and EAC's normal Throat: Yes posterior oropharynx normal and Yes tonsils normal (no TP congestion noted) Neck Neck: Yes supple and No lymphadenopathy Thyroid: Thyroid normal Resp Auscultation: no rales, no wheezes and diminished lung sounds (slightly) bilateral Cardio Rate: regular rate Rhythm: regular rhythm Heart sounds: no murmurs GI Palpation (GI): Soft to palpation and nontender Auscultation: normal bowel sounds General: Yes no CVA tenderness Back/Spine/Pelvis Back: no CVA tenderness Cervical Spine: Cervical spine tenderness Thoracic/Lumbar Spine: No lumbar spinal tenderness Skin Rashes: no rashes Extrem General: Yes no clubbing, cyanosis or edema Coding Level of Care Code Est Pt Level 3 (20281) Diagnoses Benign essential hypertension I10 Pure hypercholesterolemia E78.00 Chronic obstructive pulmonary disease, unspecified COPD type J44.9 COPD type: unspecified COPD GERD without esophagitis K21.9 Osteoarthritis of spine with radiculopathy, cervical region M47.22 Smoker F17.200 Additional Codes PHQ-9 - 66857 - PHQ-9 Billing: Yes ([id number]) Assessment & Plan Assessment & Plan (1) Benign essential hypertension: Code(s): I10 - Essential (primary) hypertension Category: Medical Plan: Reinforced low sodium diet - goal is systolic BP of 120 to 130 mm or less Continue Valsartan-HCT 160-12.5 mg QD and Amlodipine 2.5 mg QD Patient is reminded to continue monitoring her blood pressure regularly (2) Pure hypercholesterolemia: Code(s): E78.00 - Pure hypercholesterolemia, unspecified Category: Medical Plan: Patient was not able to get her follow up labs done prior to her appointment today Reinforced low cholesterol diet Will have patient recheck her labs and fasting lipids in 4 months for follow up - will just have her use her current orders (updated) for her next lab draw (3) COPD (chronic obstructive pulmonary disease): Code(s): J44.9 - Chronic obstructive pulmonary disease, unspecified Category: Medical Qualifiers: COPD type: unspecified COPD Qualified Code(s): J44.9 - Chronic obstructive pulmonary disease, unspecified Plan: Appears stable/controlled Continue Incruse Ellipta 62.5 mcg 1 inhalation QD (Rx refilled) and Albuterol HFA 2 inhalations every 6 hours PRN (4) GERD without esophagitis: Code(s): K21.9 - Gastro-esophageal reflux disease without esophagitis Category: Medical Plan: Dietary restrictions reinforced Continue Omeprazole 40 mg QD (5) Osteoarthritis of spine with radiculopathy, cervical region: Comment: Repeat x-rays of the cervical spine done in 2019 showed (+) cervical disc disease Code(s): M47.22 - Other spondylosis with radiculopathy, cervical region Category: Medical Plan: Patient states that her neck symptoms have been mostly stable/adequately controlled and have not really bothered her too much in a while now (6) Smoker: Code(s): F17.200 - Nicotine dependence, unspecified, uncomplicated Category: Social Hx Plan: Patient is counseled again on smoking cessation Plan Follow up in 4 months
--- OUTSIDE RECORDS SUMMARY | 2024-07-12 15:47 | XMS_ITS | Patient Health Record ---
Author Organization [facility] Address [address] [place] [id number] Care Team Providers Care Wire Brush Maker Name Role Phone Bill Jones MDneth Primary Care Provider Luis Antonio Azevedo Unavailable [phone] ALLERGIES Allergen (clinical drug ingredient) Drug/Non Drug Allergy documented on EMR Reaction Allergy Type Onset Date Status acetaminophen / oxycodone Percocet Unknown Drug Allergy Active REASON FOR REFERRAL No Information MEDICATIONS Medication SIG (Take, Route, Frequency, Duration) Notes Start Date End Date Status Dicyclomine HCl 10 MG 1 or 2 Orally Take 30 minutes before each meal to prevent abdominal cramps for 30 day(s) 12/17/2020 Active Diovan 160MG Active ProAir HFA 108 (90 Base) MCG/ACT 1 puff as needed Inhalation every 4 hrs Active Omeprazole 20MG Acti ve amLODIPine Besylate 5MG Active IMMUNIZATIONS Vaccine Route Administration Date Status Comme nts Influenza Unknown 02/12/2020 Administered SOCIAL HISTORY Sex Assigned At : Social History Observation Description Sex Assigned At Unknown Alcohol Screen Question Answer Notes Did you have a drink contain ing alcohol in the past year? Yes How often did you have a dri nk containing alcohol in the past year? Never (0 point) How many drinks did you have on a typical day when you were drinking in the past year? 1 or 2 drinks (0 point) How often did you have 6 or more drinks on one occasion in the past year? Never (0 point) Points 0 Interpretation Negative PROBLEMS Problem Type ICD Code Onset Dates Problem Status W/U Status Risk SNOMED Code Notes Problem Right lower quadrant pain (R10.31) Active confirmed 37243365 Problem Diverticulosis of large intestine without perforation or abscess without bleeding (K57.30) Active confirmed Diverticul ar disease of colon (467853271) Problem Heme + stool (R19.5) Active confirmed 96185508 Problem Hx of adenomatous colonic polyps (Z86.010) Active confirmed 312048811 Problem Other irritable bowel syndrome (K58.8) Active confirmed 10236191 Problem Abdominal discomfort, generalized (R10.84) Active confirmed 88932205 PLAN OF TREATMENT Pending Test Test Name Order Date Pathology 01/02/2021 Future Test Test Name Order Date COLONOSCOPY 08/30/2012 COLONOSCOPY 12/17/2020 Insurance Providers Payer Name Payer Address Payer Phone Subscriber Number Group Number Insured Name Patient Relationship to Insured Coverage Start Date Coverage End Date [facility] [address] [place], [place] [id number] FARAZ JACK Self - patient is the insured MEDICAL (GENERAL) HISTORY Medical History History ICD Code Colon polyps-2 cm tubular ad enoma with dysplasia removed from rectosigmoid in 2003, and tubular adenomas removed in 09/2009 GERD-EGD in 09/2009-small HH and gastriti s-neg. H.pylori HTN Asthma Breast CA in 1997-left mastectomy,XRT Denies MS,DM,CVA,renal disease Neg. ETT, most recently in 2010 COPD Colonoscopy in 11/2012 was negative Blood in stool 578.1 Surgical History Surgery Date(Month/Year) Left mastectomy for Breast CA 1997 Cataracts/Lasik surgery
== END 2024-07-12 12:53 | disposition home or self-care (01) ==
PROVIDERS: PCP Internal Medicine; Visit Provider Internal Medicine
DX: I10 Essential (primary) hypertension (principal); E78.00 Pure hypercholesterolemia, unspecified; J44.9 Chronic obstructive pulmonary disease, unspecified; K21.9 Gastro-esophageal reflux disease without esophagitis; M47.22 Other spondylosis with radiculopathy, cervical region; F17.200 Nicotine dependence, unspecified, uncomplicated

== ENCOUNTER → 2024-07-12 11:57 | Outpatient (BNVA) | payer MEDICARE, SELFPAY | PROVIDERS: PCP Internal Medicine; Visit Provider Internal Medicine | DX: I10 Essential (primary) hypertension (principal); E78.00 Pure hypercholesterolemia, unspecified; J44.9 Chronic obstructive pulmonary disease, unspecified; K21.9 Gastro-esophageal reflux disease without esophagitis; M47.22 Other spondylosis with radiculopathy, cervical region; F17.200 Nicotine dependence, unspecified, uncomplicated; Z71.6 Tobacco abuse counseling | CPT/HCPCS: 96127; 99212 ==

== ENCOUNTER 2024-11-01 06:45 | Outpatient (REF) | payer MEDICARE, SELFPAY ==
[2024-11-01 10:16] LABS: MANUAL DIFF FLAG NO
[2024-11-01 10:30] LABS: Basophils Percent Auto 0.5 % (0-2); Eosinophils Absolute Auto 0.2 X10*3/uL (0.0-0.4); Eosinophils Percent Auto 2.2 % (0-4); Hematocrit 39.6 % (37.0-47.0); Imm Gran Abs Auto 0.02 X10*3/uL (0.00-0.03); Imm Gran Pct Auto 0.3 % (0.0-0.4); Lymphocytes Absolute Auto 2.4 X10*3/uL (1.2-4.9); Lymphocytes Percent Auto 32.5 % (20-40); Mean Corpuscular HGB Conc 32.8 g/dl (31.0-35.0); Mean Corpuscular Volume 97.5 fL (80.0-98.0); Mean Platelet Volume 10.1 fL (9.4-12.3); Monocytes Absolute Auto 0.5 X10*3/uL (0.1-1.2); Monocytes Percent Auto 6.8 % (2-11); Neutrophils Absolute Auto 4.2 x10*3/uL (2.0-8.3); Neutrophils Percent Auto 57.7 % (45-73); Platelet Count 293 X10*3/uL (160-400); Red Blood Count 4.06 X10*6/uL (4.20-5.50); Red Cell Distribution Width 13.2 % (11.0-16.0); White Blood Count 7.3 X10*3/uL (4.8-10.8)
[2024-11-01 11:02] LABS: Appearance Urine Clear; Color Urine Yellow; Glucose Urine UA Negative (Negative); Leukocyte Esterase Urine Negative (Negative); Nitrite Urine Negative (Negative); Specific Gravity - Urine 1.025 (1.005-1.025); UMIC TRIGGER UACC YES; Urine Blood Large (3+) (Negative); Urine Ketones Trace mg/dL (Negative); Urine Protein 300 (3+) mg/dL (Neg-Trace)
[2024-11-01 11:11] LABS: Bacteria Urine None Seen (None Seen); Hyaline Casts Urine 0-2 /LPF (0-2); RBC Urine >20 /HPF (0-2); Squamous Epithelial Cell Urine 0-2 /HPF (0-2); WBC Urine 0-5 /HPF (0-5)
[2024-11-01 11:25] LABS: Alanine Aminotransferase 15 U/L (0-31); Albumin Level 3.8 g/dL (3.5-5.0); Alkaline Phosphatase 79 U/L (39-117); Anion Gap 12 (12-20); Aspartate Amino Transferase 23 U/L (5-31); Bilirubin Total 0.4 mg/dL (0.0-1.0); Blood Urea Nitrogen 13 mg/dL (9-16); Calcium 9.9 mg/dL (8.4-10.2); Carbon Dioxide 29 mmol/L (22-29); Chloride 104 mmol/L (96-108); Cholesterol 166 mg/dL (<200); Estimated Glomerular Filt Rate > 60; Glucose Fasting 85 mg/dL (60-99); HDL Cholesterol 58 mg/dL (>40); LDL Cholesterol Calculated 95 mg/dL (<100); Potassium 3.7 mmol/L (3.3-5.1); Sodium 141 mmol/L (135-145); Total Protein 6.7 g/dL (6.5-8.0); Triglycerides 66 mg/dL (<150)
[2024-11-01 11:48] LABS: TSH reflex Free T4 1.65 uIU/mL (0.32-4.0)
== END 2024-11-01 06:46 | disposition home or self-care (01) ==
LOC: HO.HMGCLDS 06:45
PROVIDERS: PCP Internal Medicine; Visit Provider Internal Medicine
DX: E78.00 Pure hypercholesterolemia, unspecified (principal); D64.9 Anemia, unspecified; E55.9 Vitamin D deficiency, unspecified
CPT/HCPCS: 36415; 80053; 80061; 81001; 81003; 82306; 84443; 85025

== ENCOUNTER 2024-11-12 10:21 | Outpatient (AMB) | payer MEDICARE, SELFPAY ==
--- NOTE | 2024-11-12 10:35 | MHC.PC.OV ---
Vital Signs 11/12/24 10:36 Height 5 ft 2 in Weight 104 lb BMI 19.0 BP 118/68 Blood Pressure Location Rt brachial Position Sitting Pulse 72 Pulse Source Pulse Oximeter Temp 97.9 F Temp Source Oral Pulse Oximetry (%) 94 Oxygen Delivery Method Room Air Intake Visit Reasons: COPD, HTN, GERD Intake Note: Patient here for a follow up COPD, HTN, GERD Scout Leaser Required: No Accompanied by: Self / Same As Patient Allergies oxycodone [Percocet] Allergy (Severe, Verified 11/12/24 10:58) Vomiting strawberry [STRAWBERRY] Allergy (Intermediate, Verified 11/12/24 10:58) ITCHY all over Medication List - Last Reconciled 11/12/24 by ZURI Cabello albuterol sulfate 90 mcg/actuation 2 puffs inhalation Q6H PRN 30 days amlodipine 2.5 mg PO DAILY 90 days ibuprofen 800 mg PO Q8H PRN Incruse Ellipta 62.5 mcg/actuation (umeclidinium) 1 inh inhalation DAILY 90 days NS omeprazole 40 mg PO DAILY valsartan-hydrochlorothiazide 160-12.5 mg 1 tab PO DAILY 90 days Tobacco use date assessed: 07/12/24 Fall risk assessment: No Falls in past year Last assessed Fall Risk: 11/12/24 Dental Screening Dental Screen Date: 07/12/24 HPI COPD, HTN, GERD HPI Details Patient is a 74-year-old female who was presenting for follow up appointment on COPD, HTN, GERD, smoker, vitamin-D deficiency Reports that she is feeling well with no main concerns Recent blood work-to discuss Denies chest pain, increasing shortness of breath, heart palpitation, reports on and off transient dizziness Denies abdominal pain/change in bowel habits Denies dysuria or urinary frequency Reports ongoing neck and lower back pain, but no increase and symptoms PFSH Medical History Seasonal allergies Stress at home Anxiety Hx of breast cancer Macular degeneration Pure hypercholesterolemia COVID-19 vaccine series completed Blood in stool Benign microscopic hematuria Smoker GERD without esophagitis Osteoarthritis of spine with radiculopathy, cervical region Benign essential hypertension COPD (chronic obstructive pulmonary disease) Surgical History Hx of surgical procedure (12/23/23) History of esophagogastroduodenoscopy (EGD) Hx of colonoscopy History of cataract extraction History of cystoscopy History of breast lump/mass excision Family History Father Hypertension Cerebral aneurysm Mother Cerebral aneurysm Cancer Sister No problems noted. Other Substance abuse Social History Household Members: Spouse Housing: House Are you a primary healthcare management consultant to a significant other at home: No Do you presently have visiting nurse or other home services: No Alcohol intake: current Alcohol intake frequency: holidays/special occasions only Comment: aware of trip hazard Patient Tobacco Use Status: Current everyday Tobacco user Tobacco use type: Cigarette Cigarettes Per Day: 10 e-Cigarette/Vaping Use: Never Used Second Hand Smoke Exposure: Yes service: No Current occupational status: retired Cognitive needs: No Hearing needs: No Vision needs: Yes Questionnaire Thrive Questionnaire Date Thrive assessed: 11/06/24 I am a: Patient What is your living situation today?: I have a steady place to live Within the past 12 months, did the food you bought not last and you didn't have the money to get more?: Never true Within the past 12 months, did you worry whether your food would run out before you got money to buy more?: Never true Do you have trouble paying for medicines?: No Do you have trouble getting transportation to medical appointments?: No Do you have trouble paying your heating and electricity bill?: No Do you have trouble taking care of your child, family member or friend?: No Do you have trouble with day-to-day activities such as bathing, preparing meals, shopping, managing finances, etc.?: No Are you currently unemployed and looking for a job?: No Are you interested in more education?: No Please select the resources that you would like help with: None Currently or been in a relationship where the following occur: No concerns reported THRIVE Score: 0 AUDIT C Alcohol Use Questionnaire (AUDIT-C) 1. How often do you have a drink containing alcohol?: Monthly or less 2. How many drinks containing alcohol do you have on a typical day when you are drinking?: 1 or 2 3. How often do you have six or more drinks on one occasion?: Never Total Score: 1 ARAMIS-7 AMB Questionnaire ARAMIS-7 Date ARAMIS - 7 assessed: 07/12/24 Feeling nervous, anxious, or on edge: 0 = Not at all Not being able to stop or control worryin = Not at all Worrying too much about different things: 0 = Not at all Trouble relaxin = Not at all Being so restless that it is hard to sit still: 0 = Not at all Becoming easily annoyed or irritable: 0 = Not at all Feeling afraid as if something awful might happen: 0 = Not at all Total ARAMIS-7 score (0-4 normal; 5-9 mild; 10-14 moderate; 15-21 severe): 0 Source: Developed by Drs. Luis Antonio Myers, Angelita Young, Bhavin Angulo and colleagues, with an educational river from [employer]. Review of Systems Const Reports headache(s) (On and off) and Reports lethargy (Later-on in the evening) Eyes Denies loss of vision ENT Denies vertigo, Reports dizziness (Transient with standing too quickly), Reports headache(s) (On and off), Reports neck pain (Posterior) and Denies sore throat Card Denies chest pain, Denies leg edema, Denies lightheadedness and Reports dyspnea on exertion (Mild-chronic) Resp Denies cough, Denies hemoptysis, Reports dyspnea on exertion (Mild-chronic) and Denies wheezing GI Denies abdominal pain, Denies melena, Denies constipation, Denies diarrhea and Denies vomiting Denies urinary frequency, Denies dysuria and Denies urinary urgency Musc Reports back pain (Lower), Denies arthralgias, Denies joint swelling, Reports neck pain (Posterior), Denies numbness and Denies tingling Neuro Denies Abnormal speech present, Denies behavioral changes, Denies vertigo, Reports dizziness (Transient with standing too quickly), Reports headache(s) (On and off), Denies loss of vision, Denies memory loss, Denies numbness and Denies tingling Psych Reports anxiety, Denies behavioral changes, Denies depression, Denies memory loss and Denies panic attacks Sesar/Lymph Denies easy bleeding and Denies easy bruising Aller/Immun Denies wheezing Physical exam (Primary Care) Vital Signs: Last Vital Signs Temp 97.9 F 11/12/24 10:36 Pulse 72 11/12/24 10:36 BP 118/68 11/12/24 10:36 Pulse Ox 94 11/12/24 10:36 Oxygen Delivery Method Room Air 11/12/24 10:36 BMI result Body Mass Index 19.0 Tobacco/Smoking Status: Tobacco use Status Tobacco use date assessed 07/12/24 11/12/24 10:44 Patient Tobacco Use Status Current everyday Tobacco 11/12/24 10:44 Tobacco use type Cigarette 11/12/24 10:44 e-Cigarette/Vaping Use Never Used 11/12/24 10:44 Thrive Assessment: Date of Thrive Assessment Date Thrive assessed 11/06/24 11/12/24 10:44 Currently or been in a relationship where the following occur: No concerns reported Const General: healthy appearing, no acute distress, alert and awake Nutritional Appearance: well nourished Orientation/consciousness: oriented to person, oriented to place and oriented to time HENMT Ears: TM's normal bilaterally General nose exam: Normal nasal mucous membranes and turbinates present Eyes Conjunctivae: conjunctivae normal Sclerae: sclerae normal Pupils: Equal, round and reactive pupils present Neck Neck: Yes no lymphadenopathy and Yes no JVD Thyroid: Thyroid normal Carotids: no bruits Resp Effort & Inspection: normal respiratory effort and not tachypneic Auscultation: no crackles, no rales, no rhonchi and no wheezes Cardio Rate: regular rate Rhythm: regular rhythm Heart sounds: no murmurs and normal S1 and S2 GI Palpation (GI): Soft to palpation, nontender, no hepatomegaly and no splenomegaly Auscultation: normal bowel sounds General: Yes no CVA tenderness Back/Spine/Pelvis Back: no CVA tenderness Cervical Spine: Cervical spine tenderness Thoracic/Lumbar Spine: No lumbar spinal tenderness Skin General skin exam: no rashes or lesions noted and dry skin Neuro General: oriented to person, oriented to place and oriented to time Cranial nerves: Yes Equal, round and reactive pupils present Speech: No Abnormal speech present Gait exam (Neuro): Normal gait present Motor exam (neuro): no tremor noted Extrem Right upper extremity: full ROM Left upper extremity: full ROM Right lower extremity: full ROM; no edema Left lower extremity: full ROM; no edema Psych Mental Status: mental status grossly normal Speech and movement: Normal speech and movement present Affect: normal affect Attitude: cooperative Thought process: Normal thought process present Results Reviewed Results Reviewed: Laboratory Tests 11/01/24 06:52 WBC 7.3 RBC 4.06 L Hgb 13.0 Hct 39.6 MCV 97.5 MCH 32.0 MCHC 32.8 RDW 13.2 Plt Count 293 Sodium 141 Potassium 3.7 Chloride 104 Carbon Dioxide 29 Anion Gap 12 BUN 13 Creatinine 0.55 Estimated GFR > 60 Fasting Glucose 85 Calcium 9.9 Total Bilirubin 0.4 AST 23 ALT 15 Alkaline Phosphatase 79 Total Protein 6.7 Albumin 3.8 Triglycerides 66 Cholesterol 166 LDL Cholesterol, Calc 95 HDL Cholesterol 58 25-OH Vitamin D Total 19.0 L TSH 1.65 Urine Color Yellow Urine Appearance Clear Urine pH 6.0 Ur Specific [place] 1.025 Urine Protein 300 (3+) H Urine Glucose (UA) Negative Urine Ketones Trace Urine Blood Large (3+) H Urine Nitrite Negative Ur Leukocyte Esterase Negative Urine RBC >20 H Urine WBC 0-5 Ur Squamous Epith Cells 0-2 Urine Bacteria None Seen Hyaline Casts 0-2 Coding Level of Care Code Est Pt Level 3 (49635) Diagnoses Chronic obstructive pulmonary disease, unspecified COPD type J44.9 COPD type: unspecified COPD Benign essential hypertension I10 Osteoarthritis of spine with radiculopathy, cervical region M47.22 GERD without esophagitis K21.9 Smoker F17.200 Benign microscopic hematuria R31.1 Pure hypercholesterolemia E78.00 Vitamin D deficiency E55.9 Time Spent (min) 36 Assessment & Plan Assessment & Plan (1) COPD (chronic obstructive pulmonary disease): Code(s): J44.9 - Chronic obstructive pulmonary disease, unspecified Category: Medical Qualifiers: COPD type: unspecified COPD Qualified Code(s): J44.9 - Chronic obstructive pulmonary disease, unspecified Plan: Lifestyle modifications like smoking cessation. Wear a mask when around irritants, fumes, or particulate matter (e.g., painting, lawn mowing). Increase humidification at home, especially in the winter. Annual flu shots and the pneumonia shot can mitigate exacerbation. Increase fluids if not contraindicated because of heart failure. Continue albuterol sulfate 90 mcg/actuation 2 puffs inh q.6 H p.r.n., Incruse Ellipta 62.5 mcg/actuation 1inh daily (2) Benign essential hypertension: Code(s): I10 - Essential (primary) hypertension Category: Medical Plan: Systolic goal less than 130 mmHg Encouraged DASH diet Continue VALSARTAN-HYDROCHLOROTHIAZIDE 160-12.5 MG 1 TAB DAILY, amlodipine 2.5 mg daily Monitor blood pressure daily (3) Osteoarthritis of spine with radiculopathy, cervical region: Comment: Repeat x-rays of the cervical spine done in 2019 showed (+) cervical disc disease Code(s): M47.22 - Other spondylosis with radiculopathy, cervical region Category: Medical Plan: Continue ibuprofen 800 mg Q 8 p.r.n. Maintaining good posture, take regular breaks to stretch and use ergonomic furnitures (4) GERD without esophagitis: Code(s): K21.9 - Gastro-esophageal reflux disease without esophagitis Category: Medical Plan: Do not eat meals or drink carbonated beverages within 3 hr of bedtime Decrease the amount of fried, fatty, and spicy foods to decrease gastric acid production Raise the head of the bed using 4 to 6-inch blocks, especially if nocturnal symptoms are present Lose weight if indicated; avoid tight-fitting clothing, especially around the waist Avoid foods that relax the Lower esophageal sphincter (chocolate, peppermint, high-fat foods etc.,) Continue omeprazole 40 mg daily (5) Smoker: Code(s): F17.200 - Nicotine dependence, unspecified, uncomplicated Category: Social Hx Plan: Encouraged smoking cessation (6) Benign microscopic hematuria: Code(s): R31.1 - Benign essential microscopic hematuria Category: Medical Plan: Chronic/stable Workup has been negative. Bladder scan in 2009-; renal US showed a simple left renal cyst, with normal-size kidneys, no renal stones, or mass, or hydronephrosis (7) Pure hypercholesterolemia: Code(s): E78.00 - Pure hypercholesterolemia, unspecified Category: Medical Plan: LDL 95 on 11/01/2024 it was 109 on 10/12/2023-improvement Discussed lifestyle modifications including dietary changes and physical activity We will repeat lipid panel in 4 months (8) Vitamin D deficiency: Code(s): E55.9 - Vitamin D deficiency, unspecified Category: Medical Plan: Ordered vitamin D3 25 mcg daily We will recheck levels in 4 months Orders: Orders Complete Blood Count Auto Diff 4 Months E78.00 - Pure hypercholesterolemia, unspecified, F17.200 - Nicotine dependence, unspecified, uncomplicated, I10 - Essential (primary) hypertension, J44.9 - Chronic obstructive pulmonary disease, unspecified, K21.9 - Gastro-esophageal reflux disease without esophagitis, R31.1 - Benign essential microscopic hematuria Comprehensive [place]. Panel Fast 4 Months E78.00 - Pure hypercholesterolemia, unspecified, F17.200 - Nicotine dependence, unspecified, uncomplicated, I10 - Essential (primary) hypertension, J44.9 - Chronic obstructive pulmonary disease, unspecified, K21.9 - Gastro-esophageal reflux disease without esophagitis, R31.1 - Benign essential microscopic hematuria Lipid Panel 4 Months E78.00 - Pure hypercholesterolemia, unspecified, F17.200 - Nicotine dependence, unspecified, uncomplicated, I10 - Essential (primary) hypertension, J44.9 - Chronic obstructive pulmonary disease, unspecified, K21.9 - Gastro-esophageal reflux disease without esophagitis, R31.1 - Benign essential microscopic hematuria UA CC w/rflx Micro + Cult 4 Months E78.00 - Pure hypercholesterolemia, unspecified, F17.200 - Nicotine dependence, unspecified, uncomplicated, I10 - Essential (primary) hypertension, J44.9 - Chronic obstructive pulmonary disease, unspecified, K21.9 - Gastro-esophageal reflux disease without esophagitis, R31.1 - Benign essential microscopic hematuria Vitamin D 25-OH Total 4 Months E78.00 - Pure hypercholesterolemia, unspecified, F17.200 - Nicotine dependence, unspecified, uncomplicated, I10 - Essential (primary) hypertension, J44.9 - Chronic obstructive pulmonary disease, unspecified, K21.9 - Gastro-esophageal reflux disease without esophagitis, R31.1 - Benign essential microscopic hematuria TSH reflex Free T4 4 Months E78.00 - Pure hypercholesterolemia, unspecified, F17.200 - Nicotine dependence, unspecified, uncomplicated, I10 - Essential (primary) hypertension, J44.9 - Chronic obstructive pulmonary disease, unspecified, K21.9 - Gastro-esophageal reflux disease without esophagitis, R31.1 - Benign essential microscopic hematuria Medications: New cholecalciferol (vitamin D3) 25 mcg PO DAILY 90 caps 2RF Refilled albuterol sulfate 90 mcg/actuation 2 puffs inhalation Q6H 30 days PRN 8.5 grams 5RF Wheezing
[2024-11-12 10:36] VITALS: BP 118/68; PULSE 72; TEMP 36.6; O2SAT 94; BMI 19.0
--- OUTSIDE RECORDS SUMMARY | 2024-11-12 11:21 | XMS_ITS | Patient Health Record ---
Author Organization [facility] Address [address] [place] [phone] Care Team Providers Care Cutter Finisher Name Role Phone Bill Jones MDneth Primary Care Provider Luis Antonio Azevedo Unavailable [phone] Allergies Allergen (clinical drug ingredient) Drug/Non Drug Allergy documented on EMR Reaction Allergy Type Onset Date Status acetaminophen / oxycodone Percocet Unknown Drug Allergy Active Reason For Referral No Information Medications Medication SIG (Take, Route, Frequency, Duration) Notes Start Date End Date Status Dicyclomine HCl 10 MG 1 or 2 Orally Take 30 minutes before each meal to prevent abdominal cramps for 30 day(s) 12/17/2020 Active Diovan 160MG Active ProAir HFA 108 (90 Base) MCG/ACT 1 puff as needed Inhalation every 4 hrs Active Omeprazole 20MG Acti ve amLODIPine Besylate 5MG Active Immunizations Vaccine Route Administration Date Status Comme nts Influenza Unknown 02/12/2020 Administered Social History Alcohol Screen Question Answer Notes Did you [...] Never (0 point) Points 0 Interpretation Negative Section Notes: She does smoke, but denies a ny sig. alcohol use She does smoke, but denies a ny significant alcohol use She does smoke, but denies a ny significant alcohol use Problems Problem Type SNOMED Code ICD Code Onset Dates Problem Status W/U Status Risk Notes Problem 41877378 Right lower quadrant pain (R10.31) Active confirmed Problem Diverticular disease of colon (903136171) Diverticulosis of large intestine without perforation or abscess without bleeding (K57.30) Active confirmed Problem 89754999 Heme + stool (R19.5) Active confirmed Problem 450711842 Hx of adenomatou s colonic polyps (Z86.010) Active confirmed Problem 35013083 Other irritable bowel syndrome (K58.8) Active confirmed Problem 76329794 Abdominal discomfort, generalized (R10.84) Active confirmed Plan Of Treatment Pending Test Test Name Order Date Pathology 01/02/2021 Future Test Test Name Order Date COLONOSCOPY 08/30/2012 COLONOSCOPY 12/17/2020 Insurance Providers Payer Name Payer Address Payer Phone Subscriber Number Group Number Insured Name Patient Relationship to Insured Coverage Start Date Coverage End Date [facility] [address] [place], [place] [phone] [id number] FARAZ JACK Self - patient is the insured Medical (General) History Medical History History ICD Code Colon polyps-2 cm tubular ad enoma with dysplasia removed from rectosigmoid in 2003, and tubular adenomas removed in 09/2009 GERD-EGD in 09/2009-small HH and gastriti s-neg. H.pylori HTN Asthma Breast CA in 1997-left mastectomy,XRT Denies CO,DM,CVA,renal disease Neg. ETT, most recently in 2010 COPD Colonoscopy in 11/2012 was negative Blood in stool 578.1 Surgical History Surgery Date(Month/Year) Left mastectomy for Breast CA 1997 Cataracts/Lasik surgery
== END 2024-11-12 11:14 | disposition home or self-care (01) ==
LOC: HO.HMCH 10:21
PROVIDERS: PCP Internal Medicine
DX: J44.9 Chronic obstructive pulmonary disease, unspecified (principal); I10 Essential (primary) hypertension; M47.22 Other spondylosis with radiculopathy, cervical region; K21.9 Gastro-esophageal reflux disease without esophagitis; F17.200 Nicotine dependence, unspecified, uncomplicated; R31.1 Benign essential microscopic hematuria; E78.00 Pure hypercholesterolemia, unspecified; E55.9 Vitamin D deficiency, unspecified

== ENCOUNTER → 2024-11-12 10:21 | Outpatient (BNVA) | payer MEDICARE, SELFPAY | PROVIDERS: PCP Internal Medicine | DX: I10 Essential (primary) hypertension (principal); J44.9 Chronic obstructive pulmonary disease, unspecified; K21.9 Gastro-esophageal reflux disease without esophagitis; E55.9 Vitamin D deficiency, unspecified; M47.22 Other spondylosis with radiculopathy, cervical region; R31.1 Benign essential microscopic hematuria; E78.00 Pure hypercholesterolemia, unspecified; F17.210 Nicotine dependence, cigarettes, uncomplicated | CPT/HCPCS: 99212 ==

== ENCOUNTER 2025-03-06 07:19 | Outpatient (REF) | payer MEDICARE, SELFPAY ==
--- OUTSIDE RECORDS SUMMARY | 2025-03-06 07:22 | XMS_ITS | Patient Health Record ---
Author Organization [facility] Address [address] [place] [phone] Care Team Providers Care Recycling Crew Supervisor Name Role Phone Bill Jones MDneth Primary Care Provider Luis Antonio Azevedo Unavailable [phone] Allergies Allergen (clinical drug ingredient) Drug/Non Drug [...] Problem Status W/U Status Risk Notes Problem 16720866 Right lower quadrant pain (R10.31) Active confirmed Problem Diverticular disease of colon (373831240) Diverticulosis of large intestine without perforation or abscess without bleeding (K57.30) Active confirmed Problem 34198382 Heme + stool (R19.5) Active confirmed Problem 103757432 Hx of adenomatou s colonic polyps (Z86.010) Active confirmed Problem 34235819 Other irritable bowel syndrome (K58.8) Active confirmed Problem 82241545 Abdominal discomfort, generalized (R10.84) Active confirmed Plan Of Treatment Pending Test Test Name Order Date Pathology 01/02/2021 Future Test Test Name Order Date COLONOSCOPY 08/30/2012 COLONOSCOPY 12/17/2020 Insurance Providers Payer Name Payer Address Payer Phone Subscriber Number Group Number Insured Name Patient Relationship to Insured Coverage Start Date Coverage End Date [facility] [address] [place], [place] [phone] [id number] FARAZ JACK Self - patient is the insured Medical (General) History Medical History History ICD Code Colon polyps-2 cm tubular ad enoma with dysplasia removed from rectosigmoid in 2003, and tubular adenomas removed in 09/2009 GERD-EGD in 09/2009-small HH and gastriti s-neg. H.pylori HTN Asthma Breast CA in 1997-left mastectomy,XRT Denies AR,DM,CVA,renal disease Neg. ETT, most recently in 2010 COPD Colonoscopy in 11/2012 was negative Blood in stool 578.1 Surgical History Surgery Date(Month/Year) Left mastectomy for Breast CA 1997 Cataracts/Lasik surgery
[2025-03-06 10:19] LABS: Appearance Urine Clear; Glucose Urine UA Negative (Negative); PH 7.0 (5.0-9.0); Specific Gravity - Urine <= 1.005 (1.005-1.025); UMIC TRIGGER UACC YES
[2025-03-06 10:28] LABS: MANUAL DIFF FLAG NO
[2025-03-06 10:32] LABS: UACC Culture Trigger YES
[2025-03-06 10:43] LABS: Hematocrit 41.2 % (37.0-47.0); Hemoglobin 14.0 g/dl (12.0-16.0); Imm Gran Abs Auto 0.04 X10*3/uL (0.00-0.03); Imm Gran Pct Auto 0.4 % (0.0-0.4); Lymphocytes Absolute Auto 1.8 X10*3/uL (1.2-4.9); Mean Corpuscular HGB Conc 34.0 g/dl (31.0-35.0); Mean Corpuscular Hemoglobin 31.9 pg (27.0-33.0); Mean Corpuscular Volume 93.8 fL (80.0-98.0); NRBC Abs Auto 0.000 X10*3/uL (0.0-0.012); NRBC Pct Auto 0.0 /100WBC (0.0-0.2); Platelet Count 312 X10*3/uL (160-400); Red Blood Count 4.39 X10*6/uL (4.20-5.50); White Blood Count 9.1 X10*3/uL (4.8-10.8)
[2025-03-06 11:36] LABS: Alanine Aminotransferase 11 U/L (0-31); Albumin Level 4.1 g/dL (3.5-5.0); Alkaline Phosphatase 86 U/L (39-117); Anion Gap 10 (12-20); Aspartate Amino Transferase 24 U/L (5-31); Blood Urea Nitrogen 11 mg/dL (9-16); Calcium 9.6 mg/dL (8.4-10.2); Carbon Dioxide 30 mmol/L (22-29); Chloride 104 mmol/L (96-108); Cholesterol 177 mg/dL (<200); Estimated Glomerular Filt Rate > 60; HDL Cholesterol 60 mg/dL (>40); Potassium 3.9 mmol/L (3.3-5.1); Sodium 140 mmol/L (135-145); Total Protein 6.6 g/dL (6.5-8.0); Triglycerides 74 mg/dL (<150)
== END 2025-03-06 07:20 | disposition home or self-care (01) ==
LOC: HO.HMGCLDS 07:19
PROVIDERS: PCP Internal Medicine
DX: I10 Essential (primary) hypertension (principal); K21.9 Gastro-esophageal reflux disease without esophagitis; R31.1 Benign essential microscopic hematuria; F17.200 Nicotine dependence, unspecified, uncomplicated; E78.00 Pure hypercholesterolemia, unspecified; J44.9 Chronic obstructive pulmonary disease, unspecified
CPT/HCPCS: 36415; 80053; 80061; 81001; 82306; 84443; 85025; 87086

== ENCOUNTER 2025-03-18 10:38 | Outpatient (AMB) | payer MEDICARE, SELFPAY ==
[2025-03-18 10:39] VITALS: BP 130/90; PULSE 88; O2SAT 93; BMI 18.2
--- NOTE | 2025-03-18 10:39 | A.OFFPC_ITS ---
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: No Accompanied by: Self / Same As Patient Allergies oxycodone (Percocet) Allergy (Severe, Verified 03/18/25 11:31) Vomiting strawberry (STRAWBERRY) Allergy (Intermediate, Verified 03/18/25 11:31) ITCHY all over Medication List - Last Reconciled 03/18/25 by Jacob Jones MD albuterol sulfate 90 mcg/actuation 2 puffs inhalation Q6H PRN 30 days amlodipine 2.5 mg PO DAILY 90 days cholecalciferol (vitamin D3) 25 mcg PO DAILY ibuprofen 800 mg PO Q8H PRN Incruse Ellipta 62.5 mcg/actuation (umeclidinium) 1 inh inhalation DAILY 90 days NS omeprazole 40 mg PO DAILY valsartan-hydrochlorothiazide 160-12.5 mg 1 tab PO DAILY 90 days Tobacco use date assessed: 03/18/25 Fall risk assessment: No Falls in past year Last assessed Fall Risk: 03/18/25 Dental Screening Dental Screen Date: 03/18/25 Did you have a dental visit in the last 12 months?: No Did you have a dental problem in the last 6 months where you did not have access to dental care?: No Was dental information given to patient?: No HPI copd/htn/hld HPI Details Patient comes in today for her follow up visit States that she has been experiencing increased pain over the left side of her abdomen for over a week now States that the pain wakes her up at night at times recently but it does not seem to be related to food intake or bowel movements She has not noticed any blood in her stool or in her urine lately and is concerned about what could be causing her current abdominal pain She denies any fever Denies any headaches but reports that she's had a couple of sudden onset of bouts of vertigo recently States that she was mostly just sitting down and drinking some coffee when these episodes occurred and each lasted approximately 3 to 5 minutes before gradually subsiding on their own States that she just sat still and did not move while she was experiencing the above bouts of vertigo She denies any chest pains, no increased SOB No nausea/vomiting and no change in bowel habits noted She had her follow up labs done a couple of weeks ago - to discuss her results [facility] Medical History Seasonal allergies Stress at home Anxiety Hx of breast cancer Macular degeneration Pure hypercholesterolemia COVID-19 vaccine series completed Blood in stool Benign microscopic hematuria Smoker GERD without esophagitis Osteoarthritis of spine with radiculopathy, cervical region Benign essential hypertension COPD (chronic obstructive pulmonary disease) Surgical History Hx of surgical procedure (12/23/23) History of esophagogastroduodenoscopy (EGD) Hx of colonoscopy History of cataract extraction History of cystoscopy History of breast lump/mass excision Family History Father Hypertension Cerebral aneurysm Mother Cerebral aneurysm Cancer Sister No problems noted. Other Substance abuse Social History Household Members: Spouse Housing: House Are you a primary critical care unit manager to a significant other at home: No Do you presently have visiting nurse or other home services: No Alcohol intake: current Alcohol intake frequency: holidays/special occasions only Comment: aware of trip hazard Patient Tobacco Use Status: Current everyday Tobacco user Tobacco use type: Cigarette Cigarettes Per Day: 10 e-Cigarette/Vaping Use: Never Used Second Hand Smoke Exposure: Yes service: No Current occupational status: retired Cognitive needs: No Hearing needs: No Vision needs: Yes Questionnaire Thrive Questionnaire Date Thrive assessed: 11/06/24 I am a: Patient What is your living situation today?: I have a steady place to live Within the past 12 months, did the food you bought not last and you didn't have the money to get more?: Never true Within the past 12 months, did you worry whether your food would run out before you got money to buy more?: Never true Do you have trouble paying for medicines?: No Do you have trouble getting transportation to medical appointments?: No Do you have trouble paying your heating and electricity bill?: No Do you have trouble taking care of your child, family member or friend?: No Do you have trouble with day-to-day activities such as bathing, preparing meals, shopping, managing finances, etc.?: No Are you currently unemployed and looking for a job?: No Are you interested in more education?: No Please select the resources that you would like help with: None Currently or been in a relationship where the following occur: No concerns reported THRIVE Score: 0 AUDIT C Alcohol Use Questionnaire (AUDIT-C) 1. How often do you have a drink containing alcohol?: Monthly or less 2. How many drinks containing alcohol do you have on a typical day when you are drinking?: 1 or 2 3. How often do you have six or more drinks on one occasion?: Never Total Score: 1 Score Reviewed/Action Taken: Yes ARAMIS-7 AMB Questionnaire ARAMIS-7 Date ARAMIS - 7 assessed: 07/12/24 Source: Developed by Drs. Luis Antonio Myers, Angelita Young, Bhavin Angulo and colleagues, with an educational river from [employer]. Review of Systems Const Denies chills, Reports fatigue, Denies fever(s) and Denies headache(s) ENT Denies dysphagia, Reports vertigo (see HPI), Denies dizziness (except for the 2 bouts of vertigo she had recently), Denies otalgia, Denies headache(s), Reports neck pain (on and off, chronic), Denies odynophagia and Denies sore throat Card Denies chest pain, Denies irregular heart rhythm, Denies palpitations and Reports dyspnea on exertion (mild) Resp Denies chest congestion, Denies cough and Reports dyspnea on exertion (mild) GI Reports abdominal pain (left-sided x 1 week), Denies hematochezia, Denies constipation, Denies dysphagia, Denies heartburn, Denies diarrhea, Denies nausea, Denies odynophagia and Denies vomiting Denies hematuria, Denies difficulty voiding, Denies nocturia, Denies dysuria and Denies urinary urgency Musc Denies back pain and Reports neck pain (on and off, chronic) Skin/Breast Denies rash Neuro Reports vertigo (see HPI), Denies dizziness (except for the 2 bouts of vertigo she had recently) and Denies headache(s) Psych Reports anxiety Endo Reports fatigue and Denies palpitations Physical exam (Primary Care) Vital Signs: Last Vital Signs Pulse 88 03/18/25 10:39 BP 130/90 H 03/18/25 10:39 Pulse Ox 93 03/18/25 10:39 Oxygen Delivery Method Room Air 03/18/25 10:39 BMI result Body Mass Index 18.2 Tobacco/Smoking Status: Tobacco use Status Tobacco use date assessed 03/18/25 03/18/25 10:40 Patient Tobacco Use Status Current everyday Tobacco 03/18/25 10:40 Tobacco use type Cigarette 03/18/25 10:40 e-Cigarette/Vaping Use Never Used 03/18/25 10:40 Thrive Assessment: Date of Thrive Assessment Date Thrive assessed 11/06/24 03/18/25 10:40 Currently or been in a relationship where the following occur: No concerns reported Const General: no acute distress and alert HENMT Ears: TM's normal bilaterally and EAC's normal Throat: Yes posterior oropharynx normal and Yes tonsils normal (no TP congestion noted) Neck Neck: Yes supple and No lymphadenopathy Thyroid: Thyroid normal Resp Auscultation: no rales, no wheezes and diminished lung sounds (slightly) bilateral Cardio Rate: regular rate Rhythm: regular rhythm Heart sounds: no murmurs GI Palpation (GI): Soft to palpation, Tenderness to palpation present (GI) (over the left side of the abdomen), no guarding, not rigid and No Rebound tenderness present Auscultation: normal bowel sounds General: Yes no CVA tenderness Back/Spine/Pelvis Back: no CVA tenderness Cervical Spine: Cervical spine tenderness Thoracic/Lumbar Spine: No lumbar spinal tenderness Skin Rashes: no rashes Extrem General: Yes no clubbing, cyanosis or edema Results Reviewed Results Reviewed: Laboratory Tests 03/06/25 03/06/25 08:30 08:38 WBC 9.1 Hgb 14.0 Hct 41.2 Plt Count 312 Sodium 140 Potassium 3.9 Creatinine 0.60 Estimated GFR > 60 Fasting Glucose 88 Calcium 9.6 AST 24 ALT 11 Triglycerides 74 Cholesterol 177 LDL Cholesterol, Calc 103 H HDL Cholesterol 60 25-OH Vitamin D Total 50.8 TSH 0.83 Ur Specific [place] <= 1.005 Urine Protein Negative Urine Glucose (UA) Negative Urine Blood Small (1+) H Urine Nitrite Negative Ur Leukocyte Esterase Small (1+) H Coding Level of Care Code Est Pt Level 4 (29379) Diagnoses Left-sided abdominal pain of unknown etiology R10.9 Paroxysmal vertigo R42 Benign essential hypertension I10 Pure hypercholesterolemia E78.00 Chronic obstructive pulmonary disease, unspecified COPD type J44.9 COPD type: unspecified COPD GERD without esophagitis K21.9 Osteoarthritis of spine with radiculopathy, cervical region M47.22 Smoker F17.200 Assessment & Plan Assessment & Plan (1) Left-sided abdominal pain of unknown etiology: Code(s): R10.9 - Unspecified abdominal pain Category: Medical Plan: Will send patient for abdominal and pelvic US ANURAG for further evaluation (2) Paroxysmal vertigo: Code(s): R42 - Dizziness and giddiness Category: Medical Plan: Patient recently had what appears to have been paroxysms/bouts of vertigo but they were self-limited and lasted only for about 3 to 5 minutes As she currently has no symptoms (of vertigo), there is not much to do in terms of intervention at this time Have advised patient that the most important consideration when these occur is injury prevention so she should stay still or sit down when these occur again in the future and if this progress or persist, then we can look into canalith position if appropriate (3) Benign essential hypertension: Code(s): I10 - Essential (primary) hypertension Category: Medical Plan: Reinforced low sodium diet - goal is systolic BP of 120 to 130 mm or less Continue Valsartan-HCT 160-12.5 mg QD and Amlodipine 2.5 mg QD Patient is reminded to continue monitoring her blood pressure regularly (4) Pure hypercholesterolemia: Code(s): E78.00 - Pure hypercholesterolemia, unspecified Category: Medical Plan: Results of her labs done a couple of weeks ago reviewed and discussed with isadora العراقي - she is advised that her cholesterol levels increased slightly from previous but are still well within normal range Reinforced low cholesterol diet (5) COPD (chronic obstructive pulmonary disease): Code(s): J44.9 - Chronic obstructive pulmonary disease, unspecified Category: Medical Qualifiers: COPD type: unspecified COPD Qualified Code(s): J44.9 - Chronic obstructive pulmonary disease, unspecified Plan: Appears controlled Continue Incruse Ellipta 62.5 mcg 1 inhalation QD and Albuterol HFA 2 inhalations every 6 hours PRN (6) GERD without esophagitis: Code(s): K21.9 - Gastro-esophageal reflux disease without esophagitis Category: Medical Plan: Dietary restrictions reinforced Continue Omeprazole 40 mg QD (7) Osteoarthritis of spine with radiculopathy, cervical region: Comment: Repeat x-rays of the cervical spine done in 2019 showed (+) cervical disc disease Code(s): M47.22 - Other spondylosis with radiculopathy, cervical region Category: Medical Plan: Patient states that her neck symptoms have been mostly stable/adequately controlled and have not really bothered her too much in a while now (8) Smoker: Code(s): F17.200 - Nicotine dependence, unspecified, uncomplicated Category: Social Hx Plan: Patient is counseled again on complete smoking cessation Plan Follow up in 4 months Orders: Orders US abdomen complete Today R10.9 - Unspecified abdominal pain US pelvic complete Today R10.9 - Unspecified abdominal pain
--- OUTSIDE RECORDS SUMMARY | 2025-03-18 12:41 | XMS_ITS | Patient Health Record ---
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 Name Role Phone Bill Jones MDneth Primary Care Provider Luis Antonio Azevedo Unavailable [phone] Allergies Allergen (clinical drug ingredient) Drug/Non Drug [...] Problem Status W/U Status Risk Notes Problem 67524692 Right lower quadrant pain (R10.31) Active confirmed Problem Diverticular disease of colon (256919909) Diverticulosis of large intestine without perforation or abscess without bleeding (K57.30) Active confirmed Problem 61609077 Heme + stool (R19.5) Active confirmed Problem 613517580 Hx of adenomatou s colonic polyps (Z86.010) Active confirmed Problem 13809489 Other irritable bowel syndrome (K58.8) Active confirmed Problem 30824333 Abdominal discomfort, generalized (R10.84) Active confirmed Plan Of Treatment Pending Test Test Name Order Date Pathology 01/02/2021 Future Test Test Name Order Date COLONOSCOPY 08/30/2012 COLONOSCOPY 12/17/2020 Insurance Providers Payer Name Payer Address Payer Phone Subscriber Number Group Number Insured Name Patient Relationship to Insured Coverage Start Date Coverage End Date [facility] [id number] [place], [place] [id number] [phone] [id number] FARAZ JACK Self - patient is the insured Medical (General) History Medical History History ICD Code Colon polyps-2 cm tubular ad enoma with dysplasia removed from rectosigmoid in 2003, and tubular adenomas removed in 09/2009 GERD-EGD in 09/2009-small HH and gastriti s-neg. H.pylori HTN Asthma Breast CA in 1997-left mastectomy,XRT Denies IA,DM,CVA,renal disease Neg. ETT, most recently in 2010 COPD Colonoscopy in 11/2012 was negative Blood in stool 578.1 Surgical History Surgery Date(Month/Year) Left mastectomy for Breast CA 1997 Cataracts/Lasik surgery
== END 2025-03-18 11:42 | disposition home or self-care (01) ==
PROVIDERS: PCP Internal Medicine; Visit Provider Internal Medicine
DX: R10.9 Unspecified abdominal pain (principal); J44.9 Chronic obstructive pulmonary disease, unspecified; R42 Dizziness and giddiness; I10 Essential (primary) hypertension; E78.00 Pure hypercholesterolemia, unspecified; K21.9 Gastro-esophageal reflux disease without esophagitis; M47.22 Other spondylosis with radiculopathy, cervical region; F17.200 Nicotine dependence, unspecified, uncomplicated

== ENCOUNTER → 2025-03-18 10:38 | Outpatient (BNVA) | payer MEDICARE, SELFPAY | PROVIDERS: PCP Internal Medicine; Visit Provider Internal Medicine | DX: I10 Essential (primary) hypertension (principal); R10.9 Unspecified abdominal pain; R42 Dizziness and giddiness; E78.00 Pure hypercholesterolemia, unspecified; J44.9 Chronic obstructive pulmonary disease, unspecified; K21.9 Gastro-esophageal reflux disease without esophagitis; M47.22 Other spondylosis with radiculopathy, cervical region; F17.210 Nicotine dependence, cigarettes, uncomplicated | CPT/HCPCS: 99212 ==

== ENCOUNTER 2025-03-22 14:51 | Outpatient (REF) | payer MEDICARE, SELFPAY ==
--- NOTE | ~2025-03-22 | US_ITS ---
EXAMINATION: US ABDOMEN COMPLETE CLINICAL INFORMATION: Left-sided abdominal pain.. COMPARISON: None available. TECHNIQUE: Real-time imaging of the abdominal viscera. FINDINGS: PANCREAS: Visualized portions are unremarkable. ABDOMINAL AORTA: The proximal, mid, and distal segments are normal in caliber. There is calcific atherosclerosis. INFERIOR VENA CAVA: Visualized portions are normal. LIVER: The liver is normal in size. Right hepatic lobe measures 14.0 cm. The liver contour is normal. Parenchymal echogenicity is normal. No focal hepatic lesion. There is no intrahepatic biliary duct dilatation seen. GALLBLADDER: The gallbladder is physiologically distended without evidence of stones, sludge, polyps, wall thickening or pericholecystic fluid. Negative sonographic Lewis's sign. COMMON BILE DUCT: Normal in caliber measuring 0.4 cm in diameter. RIGHT KIDNEY: No hydronephrosis. No renal calculi or focal parenchymal lesions. The kidney measures 9.4 cm in maximum dimension. Mild nonspecific pelvic fullness. LEFT KIDNEY: No hydronephrosis. No renal calculi or focal parenchymal lesions. The kidney measures 10.2 cm in maximum dimension. SPLEEN: The spleen measures 8.8 cm in maximum dimension. FREE FLUID: None. US/US abdomen complete IMPRESSION: 1. No acute findings in the abdomen. Normal-appearing liver, bile ducts, and gallbladder. Electronically signed by: David Logan MD 03/22/2025 04:16 PM EDT
--- NOTE | ~2025-03-22 | US_ITS ---
EXAMINATION: US PELVIS HISTORY: R10.9 - LT SIDED ABDOMINAL PAIN COMPARISON: There are no prior studies available for comparison. TECHNIQUE: Transabdominal real-time 2D lai-scale ultrasound was performed. FINDINGS: Uterus: The uterus is normal in size, measuring 5.2 x 2.0 x 3.3 cm. Myometrium has a normal echotexture. No fibroids are identified. Endometrium: The endometrial stripe measures 2 mm in thickness. Right ovary: The right ovary is not identified. Left ovary: The left ovary measures 2.2 x 1.0 x 1.7 cm. The left ovary is normal in size and echotexture. Pelvic fluid: none. US/US pelvic complete IMPRESSION: The right ovary is not identified. Otherwise unremarkable pelvic ultrasound. Electronically signed by: Luis Antonio Hall MD 03/22/2025 03:54 PM EDT
== END 2025-03-22 14:52 | disposition home or self-care (01) ==
LOC: HO.US 14:51
PROVIDERS: PCP Internal Medicine; Visit Provider Internal Medicine
DX: R10.9 Unspecified abdominal pain (principal)
CPT/HCPCS: 76700; 76856

== ENCOUNTER → 2025-03-22 14:53 | Outpatient (BNV) | payer MEDICARE, SELFPAY | PROVIDERS: PCP Internal Medicine; Visit Provider Radiology Diagnostic Radiology | DX: R10.9 Unspecified abdominal pain (principal) | CPT/HCPCS: 76700 ==

== ENCOUNTER 2025-04-25 13:16 | Emergency (ER) | payer MEDICARE, SELFPAY ==
[2025-04-25] VITALS (8 sets, daily range): BP systolic 104–118; BP diastolic 41–56; PULSE 70–90; RESP 16–18; TEMP 34.7–36.9; O2SAT 93–100; BMI 18.3
--- NOTE | ~2025-04-25 | CT_ITS ---
CLINICAL HISTORY: difficulty breathing,? Thyroid mass. CT soft tissue neck with contrast Comparison: CT/SR - CT CHEST W IV CON - 04/25/25 16:41 EST Findings: Normal pharyngeal mucosa, oral cavity and larynx. No suspicious lymph nodes in the neck. Normal parotid and submandibular glands. Thyroid nodules measure up to 1.1 cm in the right lobe. Normal carotid space. Mild calcified atherosclerotic disease. No acute fracture. Right upper lobe mass, malignant. Impression: Malignant right upper lobe mass. Please see the accompanying chest CT report. This document has been electronically signed by: Emily Pabon MD on 04/25/2025 18:13:57
--- NOTE | ~2025-04-25 | CT_ITS ---
CLINICAL HISTORY: difficulty breathing, right upper chest mass. CT chest with contrast Comparison: CT/SR - CT SOFT TISSUE NECK W IV CON - 04/25/25 16:41 EST CR/SR - XR CHEST 1 VIEW - 04/25/25 13:39 EST Findings: There is a right upper lobe mass which extends into the mediastinum measuring 8.5 x 7.5 x 7.4 cm. The mass displaces the trachea anteriorly and causes tracheal narrowing by up to 75%. Mediastinal and right hilar lymphadenopathy measures up to 2.7 cm. No left hilar lymphadenopathy. 1.2 cm nodule in the right lobe of the thyroid. No cardiomegaly. Moderate calcified coronary artery disease. Normal size thoracic aorta with moderate calcified atherosclerotic disease. Confluent centrilobular emphysema. Paraseptal emphysema extends beyond the lung apices. Mild bronchial wall thickening. Pulmonary nodules measure up to 4 mm. No pneumothorax or pleural effusion. No acute osseous or soft tissue abnormality. No acute pathology in the imaged portion of the upper abdomen. Subcentimeter low attenuating lesion in the liver. Abnormal upper pole of the left kidney, likely secondary to scarring. Impression: Right upper lobe mass which extends into the mediastinum measures up to 8.5 cm, malignant. The mass narrows the trachea. There is mediastinal and right hilar lymphadenopathy measuring up to 2.7 cm. This document has been electronically signed by: Emily Pabon MD on 04/25/2025 18:10:56
--- NOTE | ~2025-04-25 | XR_ITS ---
EXAMINATION: XR CHEST CLINICAL INFORMATION: COughing. Pneumonia? COMPARISON: January 03, 2019. TECHNIQUE: Frontal view of the chest was obtained. FINDINGS: There is a 8 cm laterally convex opacity in the medial aspect right upper hemithorax. Pulmonary reticular pattern. Prominence of the interstitial markings. Hyperinflated lungs. No gross pleural effusion or pneumothorax. Heart silhouette size is normal. Multilevel thoracic spondylosis. Trachea is midline. XR/XR chest 1V IMPRESSION: 8 cm mass either apical lung lobe versus submersed right thyroid mass. Chronic interstitial lung disease likely COPD emphysematous type changes. Electronically signed by: Dilip Arriaga MD 04/25/2025 01:40 PM EST
--- NOTE | 2025-04-25 13:27 | ECG_ITS ---
Test Reason : sob Blood Pressure : */* mmHG Vent. Rate : 77 BPM Atrial Rate : 77 BPM P-R Int : 146 ms QRS Dur : 74 ms QT Int : 344 ms P-R-T Axes : 87 74 72 degrees QTcB Int : 389 ms Normal sinus rhythm Normal ECG When compared with ECG of 04-Nov-2021 08:49, No significant change was found Referred By: Ephraim Calero Electronically Signed By: MERRITT REYES MD
--- NOTE | 2025-04-25 13:27 | ED_ITS ---
HPI - General Adult General Chief complaint: Dyspnea Stated complaint: diff breathing hx copd Time Seen by Provider: 04/25/25 14:24 Source: patient and family Mode of arrival: ambulatory Limitations: no limitations History of Present Illness ED Provider: DR. Bosch HPI narrative: 75-year-old female active smoker history of COPD / emphysema presented with difficulty breathing for the past month associated with dry cough mostly in the morning time, patient also been having intermittent difficulty swallowing and speaking, no recent loss of weight, patient feels something else is her shortness of breath Related Data Previous Rx's ?Medication ?Instructions ?Recorded ibuprofen 800 mg tablet 800 mg PO Q8H PRN pain #30 t abs 12/23/23 cholecalciferol (vitamin D3) 25 25 mcg PO DAILY #90 ca ps 11/12/24 mcg (1,000 unit) capsule valsartan 160 1 tab PO DAILY 90 days #90 t abs 12/20/24 mg-hydrochlorothiazide 12.5 mg tablet Incruse Ellipta 62.5 mcg/actuation 1 inh inhalation DA EUNICE 90 days #90 02/09/25 powder for inhalation ea (umeclidinium) amlodipine 2.5 mg tablet 2.5 mg PO DAILY 90 days #90 tabs 02/15/25 omeprazole 40 mg capsule,delayed 40 mg PO DAILY #90 ca ps 02/23/25 release albuterol sulfate 90 mcg/actuation 2 puff inhalation Q 6H PRN Wheezing 04/18/25 aerosol inhaler 30 days #8.5 grams Allergies Allergy/AdvReac Type Severity Reaction Status Date / Time oxycodone (Percocet) Allergy Severe Vomiting Verified 04/25/25 13:25 strawberry (STRAWBERRY) Allergy Intermediate ITCHY all Verified 04/25/25 13:25 over Review of Systems 2 Review of Systems: all other systems are reviewed and are negative Constitutional: Reports as per HPI and Reports no additional constitutional complaints Eyes: Reports as per HPI and Reports no additional eye complaints Reports system reviewed and no additional complaints, except as documented Cardiovascular: Reports as per HPI and Reports no additional cardiovascular complaints Respiratory: Reports as per HPI and Reports no additional respiratory complaints Gastrointestinal: Reports as per HPI and Reports no additional gastrointestinal complaints Genitourinary: Reports no additional female genitourinary complaints Musculoskeletal: Reports no additional musculoskeletal complaints Skin/Breast: Reports system reviewed and no additional complaints, except as docu Psychiatric: Reports no additional psychiatric complaints Endocrine: Reports no additional endocrine complaints Hematologic/Lymphatic: Reports no additional hematologic/lymphatic complaints Allergic/Immunologic: Reports no additional allergic/immunologic complaints Reports system reviewed and no additional complaints, except as documented and Reports Abnormal speech present [facility] Past Medical History Medical History Seasonal allergies Stress at home Anxiety Hx of breast cancer Macular degeneration Pure hypercholesterolemia COVID-19 vaccine series completed Blood in stool Benign microscopic hematuria Smoker GERD without esophagitis Osteoarthritis of spine with radiculopathy, cervical region Benign essential hypertension COPD (chronic obstructive pulmonary disease) Surgical History Hx of surgical procedure (12/23/23) History of esophagogastroduodenoscopy (EGD) Hx of colonoscopy History of cataract extraction History of cystoscopy History of breast lump/mass excision Family History Family History Father Hypertension Cerebral aneurysm Mother Cerebral aneurysm Cancer Sister No problems noted. Other Substance abuse Social History Social History Household Members: Spouse Housing: House Are you a primary medicare nurse to a significant other at home: No Do you presently have visiting nurse or other home services: No Alcohol intake: current Alcohol intake frequency: holidays/special occasions only Comment: aware of trip hazard Patient Tobacco Use Status: Current everyday Tobacco user Tobacco use type: Cigarette Cigarettes Per Day: 10 e-Cigarette/Vaping Use: Never Used Second Hand Smoke Exposure: Yes Advance Directives: No Advance Directives Information Provided: Yes service: No Current occupational status: retired Cognitive needs: No Hearing needs: No Vision needs: Yes Physical Exam ED Vital Signs: Vital Signs - 24 hr 04/25/25 13:22 04/25/25 13:50 04/25/25 14:47 Temperature 94.5 F L Pulse Rate 88 81 78 Respiratory Rate 18 16 Blood Pressure 114/56 L 112/41 L Pulse Oximetry 96 93 Oxygen Delivery Method Room Air Room Air 04/25/25 15:31 04/25/25 17:59 04/25/25 19:30 Temperature 98.1 F 98.4 F 97.8 F Pulse Rate 81 90 77 Respiratory Rate 16 16 18 Blood Pressure 110/47 L 104/55 L 113/47 L Pulse Oximetry 94 93 96 Oxygen Delivery Method Room Air Room Air Room Air 04/25/25 20:11 04/25/25 22:10 Temperature 97.9 F Pulse Rate 80 70 Respiratory Rate 16 18 Blood Pressure 104/54 L 118/51 L Pulse Oximetry 95 96 Oxygen Delivery Method Room Air Room Air BMI result Body Mass Index 18.3 Vital signs have been reviewed and appear to be correct. Blood pressure elevated. Heart rate normal. Respiratory rate normal. Temperature normal. Oxygen saturation normal. Appearance: Alert. Oriented X3. No acute distress. Head: Normal external exam. Normocephalic. Atraumatic. No Lua signs noted. No raccoon eyes noted Eyes: PERRLA. EOMI. Conjunctiva and sclera normal. Eyelids normal. ENT: TM's Normal. Pharynx normal. Uvula midline. Moist mucous membranes. No trismus noted. No drooling noted. No muffled voice noted. Neck: Normal inspection. Neck supple. FROM. No adenopathy. Thyroid Normal. No meningeal signs. No neck mass noted. CVS: Normal heart rate and rhythm. Heart sound normal. No murmurs noted. Pulses normal throughout. Respiratory: No respiratory distress. Painless inspiration. Breath sounds normal. No wheezes/rales/rhonchi noted. Chest nontender. No accessory muscle usage noted or decreased air movement noted. Abdomen: Soft and nontender. Bowel sounds normal in all 4 quadrants. No distention noted. No organomegaly noted. No visible injury noted. Back: No CVA tenderness. Full range of motion noted. Skin: Skin warm and dry. Normal skin color. Normal skin turgor. No rashes/lesions/lacerations noted. Extremities: No lower extremity edema. Extremities exhibit normal range of motion. Extremities nontender. Neuro: Oriented X 3. Cranial nerve exam: II-XII are grossly intact No motor deficit. No sensory deficit. Reflexes normal. Course Course Course Narrative: RME: 75 yold female presents to the ED for shortness of breath, coughing, chest pain, fever, chills, and fatigue. patient is hypothermic. Patient is brought back to the ED. Labs imaging ordered. Reevaluation(s) Reevaluation #1: new right lung mass likely malignancy, will admit for further malignancy evaluation and diagnosis. Time: 18:48 Reevaluation #2: Case discussed with Dr. Santos who recommended transfer the patient out to [facility] concern of imminent compromise of airway, patient also will require a place where they have a thoracic surgeon. Case discussed with Dr. Kwame Olivares thoracic surgeon who recommended to transfer the patient up to [facility] to be on the medical floor start getting workup for new malignancy, patient may require airway stent at some point. Case was discussed and accepted by DrMckay Medications Administered Discontinued Medications Generic Name Dose Route Start Last Admin Trade Name Freq PRN Reason Stop Dose Admin Albuterol Sulfate 5 mg/ 0 mg 04/25/25 13:40 04/25/25 13:48 Albuterol/Ipratropium 3 ml INHALE 04/25/25 13:41 7.5 each ONCE ONE Administration Iohexol 100 ml 04/25/25 16:42 04/25/25 16:54 Iohexol 350 Mg/Ml 100 Ml Infus..Btl IV 04/25/25 16:43 80 ml ONCE ONE Administration Medical Decision Making Medical Decision Making [facility] Narrative: I received sign-out from my colleague Dr. Bosch I discussed the patient with the internal medicine team at [facility], patient being admitted. Accepting physician Dr. Gordillo at this time, they do not have telemetry beds, patient may have to wait in the ED here with us until the morning with a have a bed assignment patient remained stable Differential Diagnosis Differential Diagnoses: The differential diagnosis associated with the presentation includes ( Pneumonia, pneumothorax, pleural effusion, new malignancy, electrolyte derangement, severe anemia, COPD exacerbation.) Admission/Observation Consideration of admission/observation: Escalation of care including admission/observation considered Lab Data [facility] Lab Attestation statement: I reviewed the patient's lab results. 04/25/25 13:47 04/25/25 13:47 Labs: Lab Results 04/25/25 Range/Units 13:47 WBC 10.0 (4.8-10.8) X10*3/uL RBC 3.74 L (4.20-5.50) X10*6/uL Hgb 11.8 L (12.0-16.0) g/dl Hct 35.6 L (37.0-47.0) % MCV 95.2 (80.0-98.0) fL MCH 31.6 (27.0-33.0) pg MCHC 33.1 (31.0-35.0) g/dl RDW 13.3 (11.0-16.0) % Plt Count 321 (160-400) X10*3/uL MPV 9.3 L (9.4-12.3) fL Immature Gran % (Auto) 0.3 (0.0-0.4) % Neut % (Auto) 74.2 H (45-73) % Lymph % (Auto) 17.0 L (20-40) % [place] % (Auto) 7.0 (2-11) % Eos % (Auto) 1.1 (0-4) % Baso % (Auto) 0.4 (0-2) % Lymph # (Auto) 1.7 (1.2-4.9) X10*3/uL [place] # (Auto) 0.7 (0.1-1.2) X10*3/uL Eos # (Auto) 0.1 (0.0-0.4) X10*3/uL Baso # (Auto) 0.0 (0.0-0.2) X10*3/uL Abs Immat Gran (auto) 0.03 (0.00-0.03) X10*3/uL Absolute Neuts (auto) 7.4 (2.0-8.3) x10*3/uL Absolute Nucleated RBC 0.000 (0.0-0.012) X10*3/uL Nucleated RBC % (auto) 0.0 (0.0-0.2) /100WBC Sodium 139 (135-145) mmol/L Potassium 4.0 (3.3-5.1) mmol/L Chloride 103 (96-108) mmol/L Carbon Dioxide 28 (22-29) mmol/L Anion Gap 12 (12-20) BUN 15 (9-16) mg/dL Creatinine 0.62 (0.5-1.4) mg/dL Estim Creat Clear Calc 54.6 Estimated GFR > 60 Random Glucose 82 (60-115) mg/dL Lactic Acid 1.5 (0.5-2.0) mmol/L Calcium 9.9 (8.4-10.2) mg/dL Total Bilirubin 0.2 (0.0-1.0) mg/dL AST 25 (5-31) U/L ALT 8 (0-31) U/L Alkaline Phosphatase 77 (39-117) U/L Troponin I High Sens < 2.7 (<3.5-17.0) ng/L NT-Pro-B Natriuret Pep 352.4 H (<300) pg/mL Total Protein 6.8 (6.5-8.0) g/dL Albumin 4.0 (3.5-5.0) g/dL Lipase 13 (8-78) U/L Influenza Type A (PCR) NEGATIVE (Negative) Influenza Type B (PCR) NEGATIVE (Negative) RSV RNA Qual (PCR) NEGATIVE (Negative) SARS-CoV-2 RNA (RT-PCR) NEGATIVE (Negative) Independent Interpretation I performed an independent interpretation of an: Plain X-Ray ( Chest: cm mass either apical lung lobe versus submersed right thyroid mass. Chronic interstitial lung disease likely COPD emphysematous type changes.) and CT Scan ( Chest:Right upper lobe mass which extends into the mediastinum measures up to 8.5 cm, malignant. The mass narrows the trachea. There is mediastinal and right hilar lymphadenopathy measuring up to 2.7 cm.) Radiology Impression Discussion of test interpretation with radiology: I have reviewed the radiologist's reading. Critical Care Time Critical Care Time Critical Care Time: Yes Total Critical Care Time: 35 Attestation: I have personally provided critical care time. Time includes review of lab data, radiology results, discussion with consultants, and monitoring for potential decompensation. Intervention performed as documented. Discharge Plan Discharge Clinical Impression: Acute dyspnea, Lung mass Patient Disposition: [facility] Transfer Details: [facility], Dr. Gordillo, Dr. Olivares Prescriptions: No Action valsartan-hydrochlorothiazide 160-12.5 mg tablet 1 tab PO DAILY 90 Days Qty: 90 1RF Incruse Ellipta 62.5 mcg/actuation blister with device 1 inh inhalation DAILY 90 Days Qty: 90 3RF amlodipine 2.5 mg tablet 2.5 mg PO DAILY 90 Days Qty: 90 1RF omeprazole 40 mg capsule,delayed release(DR/EC) 40 mg PO DAILY Qty: 90 3RF albuterol sulfate 90 mcg/actuation HFA aerosol inhaler 2 puff inhalation Q6H PRN (Reason: Wheezing) 30 Days Qty: 8.5 5RF ibuprofen 800 mg tablet 800 mg PO Q8H PRN (Reason: pain) Qty: 30 0RF cholecalciferol (vitamin D3) 25 mcg (1,000 unit) capsule 25 mcg PO DAILY Qty: 90 2RF Interventions: Acute Care Transfer Worksheet (ED) Last Done: 04/26/25 02:43 Discharge Date/Time: 04/26/25 05:12 Print Language: Divehi
[2025-04-25] MEDS: Albuterol Sulfate 5 MG, Albuterol/Iprat 2.5/0.5MG 3 ML 3 ML INHALE (13:48)
[2025-04-25 13:55] LABS: MANUAL DIFF FLAG NO
[2025-04-25 13:57] LABS: Hematocrit 35.6 % (37.0-47.0); Hemoglobin 11.8 g/dl (12.0-16.0); Imm Gran Abs Auto 0.03 X10*3/uL (0.00-0.03); Imm Gran Pct Auto 0.3 % (0.0-0.4); Lymphocytes Absolute Auto 1.7 X10*3/uL (1.2-4.9); Mean Corpuscular HGB Conc 33.1 g/dl (31.0-35.0); Mean Corpuscular Hemoglobin 31.6 pg (27.0-33.0); Mean Corpuscular Volume 95.2 fL (80.0-98.0); NRBC Abs Auto 0.000 X10*3/uL (0.0-0.012); NRBC Pct Auto 0.0 /100WBC (0.0-0.2); Platelet Count 321 X10*3/uL (160-400); Red Blood Count 3.74 X10*6/uL (4.20-5.50); White Blood Count 10.0 X10*3/uL (4.8-10.8)
[2025-04-25 14:11] LABS: Alanine Aminotransferase 8 U/L (0-31); Albumin Level 4.0 g/dL (3.5-5.0); Alkaline Phosphatase 77 U/L (39-117); Anion Gap 12 (12-20); Aspartate Amino Transferase 25 U/L (5-31); Blood Urea Nitrogen 15 mg/dL (9-16); Calcium 9.9 mg/dL (8.4-10.2); Carbon Dioxide 28 mmol/L (22-29); Chloride 103 mmol/L (96-108); Creatinine Clr Calc Pharmacy 54.6; Estimated Glomerular Filt Rate > 60; Lipase 13 U/L (8-78); Potassium 4.0 mmol/L (3.3-5.1); Sodium 139 mmol/L (135-145); Total Protein 6.8 g/dL (6.5-8.0)
[2025-04-25 14:22] LABS: Troponin-I High Sensitivity < 2.7 ng/L (<3.5-17.0)
[2025-04-25 14:34] LABS: NT Pro B Type Natriuretic Pept 352.4 pg/mL (<300); Resp Syncy Virus RNA Qual PCR NEGATIVE (Negative); SARS COV2 PCR INHOUSE NEGATIVE (Negative)
[2025-04-25] MEDS: iohexoL 350 MG/ML 100 ML INFUS..BTL IV (16:54)
--- OUTSIDE RECORDS SUMMARY | 2025-04-25 17:42 | XMS_ITS | Patient Health Record ---
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 Name Role Phone Bill Jones MDneth Primary Care Provider Luis Antonio Azevedo Unavailable [phone] Allergies Allergen (clinical drug ingredient) Drug/Non Drug Allergy documented on EMR Reaction Allergy Type Onset Date Status acetaminophen / oxycodone Percocet Unknown Drug Allergy Active Reason For Referral No Information Medications Medication SIG (Take, Route, Frequency, Duration) Notes Start Date End Date Status Dicyclomine HCl 10 MG 1 or 2 Orally Take 30 minutes before each meal to prevent abdominal cramps; Duration: 30 day(s) 12/17/2020 Active Diovan 160MG Active [...] Problem Status W/U Status Risk Notes Problem Right lower quadrant pain (391611950) Right lower quadrant pain (R10.31) Active confirmed Problem Diverticular disease of colon (066541043) Diverticulosis of large intestine without perforation or abscess without bleeding (K57.30) Active confirmed Problem Abnormal feces (371006518) Heme + stool (R19.5) Active confirmed Problem History of adenomatous polyp of colon (226264160) Hx of adenomatous colonic polyps (Z86.010) Active confirmed Problem Irritable bowel syndrome (97648528) Other irritable bowel syndrome (K58.8) Active confirmed Problem Generalized abdominal pain (682603928) Abdominal discomfort, generalized (R10.84) Active confirmed Plan Of Treatment Pending Test Test Name Order Date Pathology 01/02/2021 Future Test Test Name Order Date COLONOSCOPY 08/30/2012 COLONOSCOPY 12/17/2020 Insurance Providers Payer Name Payer Address Payer Phone Subscriber Number Group Number Insured Name Patient Relationship to Insured Coverage Start Date Coverage End Date [facility] [address] [place], [place] [id number] [phone] [id number] FARAZ JACK Self - patient is the insured Medical (General) History Medical History History ICD Code Colon polyps-2 cm tubular ad enoma with dysplasia removed from rectosigmoid in 2003, and tubular adenomas removed in 09/2009 GERD-EGD in 09/2009-small HH and gastriti s-neg. H.pylori HTN Asthma Breast CA in 1997-left mastectomy,XRT Denies [place],DM,CVA,renal disease Neg. ETT, most recently in 2010 COPD Colonoscopy in 11/2012 was negative Blood in stool 578.1 Surgical History Surgery Date(Month/Year) Left mastectomy for Breast CA 1997 Cataracts/Lasik surgery
[2025-04-26 02:43] VITALS: BP 134/61; PULSE 81; RESP 16; TEMP 36.9; O2SAT 94
[2025-04-26 02:51] VITALS: BP 134/61; PULSE 81; RESP 16; TEMP 36.9; O2SAT 94
== END 2025-04-26 05:12 | disposition short-term general hospital (02) ==
PROVIDERS: Physician Assistant; Emergency Provider Emergency Medicine; PCP Internal Medicine
DX: R06.02 Shortness of breath (principal); R91.8 Other nonspecific abnormal finding of lung field; R05.9 Cough, unspecified; R13.10 Dysphagia, unspecified; Z03.818 Encounter for observation for suspected exposure to other biological agents ruled out; Z87.891 Personal history of nicotine dependence
CPT/HCPCS: 70491; 71045; 71260; 80053; 83605; 83690; 83880; 84484; 85025; 87040; 87637; 93005; 94640; 99285; Q9967

== ENCOUNTER → 2025-04-25 13:24 | Outpatient (BNV) | payer MEDICARE, SELFPAY | PROVIDERS: PCP Internal Medicine; Visit Provider Radiology Diagnostic Radiology | DX: C73 Malignant neoplasm of thyroid gland (principal); C34.11 Malignant neoplasm of upper lobe, right bronchus or lung; R59.0 Localized enlarged lymph nodes; J84.9 Interstitial pulmonary disease, unspecified | CPT/HCPCS: 70491; 71045; 71260 ==

== ENCOUNTER → 2025-04-25 13:27 | Outpatient (BNV) | payer MEDICARE, SELFPAY | PROVIDERS: Emergency Provider Emergency Medicine; PCP Internal Medicine; Visit Provider Internal Medicine Cardiovascular Disease | DX: R06.02 Shortness of breath (principal) | CPT/HCPCS: 93010 ==

== ENCOUNTER 2025-05-13 15:10 | Emergency (ER) | payer MEDICARE, SELFPAY ==
--- NOTE | 2025-05-13 16:05 | ED_ITS ---
HPI - General Adult General Chief complaint: Cardiac Arrest/CPR Stated complaint: CARDIAC ARREST,CPR IN PRGRESS,VOMITED BLOOD Time Seen by Provider: 05/13/25 16:05 Source: patient Mode of arrival: ambulatory Limitations: no limitations History of Present Illness ED Provider: Dr. 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 Patient unable to provide any medical history to her cardiac arrest presentation. Related Data Previous Rx's ?Medication ?Instructions ?Recorded ibuprofen 800 mg tablet 800 mg PO Q8H PRN pain #30 t abs 12/23/23 cholecalciferol (vitamin D3) 25 25 mcg PO DAILY #90 ca ps 11/12/24 mcg (1,000 unit) capsule valsartan 160 1 tab PO DAILY 90 days #90 t abs 12/20/24 mg-hydrochlorothiazide 12.5 mg tablet Incruse Ellipta 62.5 mcg/actuation 1 inh inhalation DA EUNICE 90 days #90 02/09/25 powder for inhalation ea (umeclidinium) amlodipine 2.5 mg tablet 2.5 mg PO DAILY 90 days #90 tabs 02/15/25 omeprazole 40 mg capsule,delayed 40 mg PO DAILY #90 ca ps 02/23/25 release albuterol sulfate 90 mcg/actuation 2 puff inhalation Q 6H PRN Wheezing 04/18/25 aerosol inhaler 30 days #8.5 grams Allergies Allergy/AdvReac Type Severity Reaction Status Date / Time oxycodone (Percocet) Allergy Severe Vomiting Verified 04/25/25 13:25 strawberry (STRAWBERRY) Allergy Intermediate ITCHY all Verified 04/25/25 13:25 over Review of Systems Review of Systems: Pertinent review of systems as mentioned in HPI. All other system otherwise negative. [facility] Past Medical History [facility] Narrative: Lung cancer, metastases, GERD, hypertension, former tobacco user Medical History Seasonal allergies Stress at home Anxiety Hx of breast cancer Macular degeneration Pure hypercholesterolemia COVID-19 vaccine series completed Blood in stool Benign microscopic hematuria Smoker GERD without esophagitis Osteoarthritis of spine with radiculopathy, cervical region Benign essential hypertension COPD (chronic obstructive pulmonary disease) Surgical History Hx of surgical procedure (12/23/23) History of esophagogastroduodenoscopy (EGD) Hx of colonoscopy History of cataract extraction History of cystoscopy History of breast lump/mass excision Family History Family History Father Hypertension Cerebral aneurysm Mother Cerebral aneurysm Cancer Sister No problems noted. Other Substance abuse Social History Social History Household Members: Spouse Housing: House Are you a primary direct care supervisor to a significant other at home: No Do you presently have visiting nurse or other home services: No Alcohol intake: current Alcohol intake frequency: holidays/special occasions only Comment: aware of trip hazard Patient Tobacco Use Status: Current everyday Tobacco user Tobacco use type: Cigarette Cigarettes Per Day: 10 e-Cigarette/Vaping Use: Never Used Second Hand Smoke Exposure: Yes Advance Directives: No Advance Directives Information Provided: No service: No Current occupational status: retired Cognitive needs: No Hearing needs: No Vision needs: Yes Physical Exam ED Exam Exam: General: Unresponsive cardiac arrest Head: Normacephalic, atraumatic ENT: blood in the oropharynx Cardiovascular: Pulseless Respiratory: Apneic Gastrointestinal: Distended Skin: Cool and dry Medications Administered Discontinued Medications Generic Name Dose Route Start Last Admin Trade Name Freq PRN Reason Stop Dose Admin Octreotide Acetate 100 mcg 05/13/25 15:26 05/13/25 16:25 Octreotide Acetate 100 Mcg/Ml Ampul IVPUSH 05/13/25 15:27 100 mcg ONCE ONE Administration Pantoprazole Sodium 80 mg 05/13/25 15:26 05/13/25 16:25 Pantoprazole Sodium 40 Mg/10 Ml Vial IVPUSH 05/13/25 15:27 80 mg ONCE ONE Administration Medical Decision Making Medical Decision Making MDM Narrative: This is a 75-year-old female history of lung mass we will metastases presented hospital today for evaluation of cardiac arrest. CPR was initiated upon arrival. MTP was activated. A did show around the CPR was given to the patient. I did push some IV TXA, IV bicarb IV Protonix and IV octreotide for the patient. Patient was given additional epinephrine. Patient's rhythm remains in PE at this time. Patient is noted to be having some distention in the abdomen likely secondary to air. During this code it was noted that patient has swelling in the neck and her upper extremity with subcutaneous emphysema. Suspicion of possible pneumothorax. Cardiac Standstill confirmed on bedside ultrasound. No organized cardiac activity. Time of 15:34. Unfortunately after transfusing blood and CPR we were unable to restart patient's heart. Discuss the case with the patient's daughter and son-in-law and . Discussed the case with Wil Angelo at Clinical Specialty Rep office. Case will be declined. Not suspicious cause of . Family declined autopsy Differential Diagnosis Differential Diagnoses: The differential diagnosis associated with the presentation includes GI bleed, cardiac arrest, anemia, hemorrhagic shock Chronic Conditions Lung Cancer Critical Care Time Critical Care Time Critical Care Time: Yes Total Critical Care Time: 36 Attestation: Time is exclusive of separately billable procedures. Time includes: direct patient care, patient reassessment, coordination of patient care, interpretation of data (laboratory data, pulse oximetry, arterial blood gases and chest xrays), review of patient's medical records, medical consultation and documentation of patient care. Procedures excluded from critical care time: central intravenous line placement and electrocardiography. Discharge Plan Discharge Clinical Impression: Cardiac arrest GI bleed Qualifiers: GI bleed type/associated pathology: unspecified gastrointestinal hemorrhage type Qualified Code(s): K92.2 - Gastrointestinal hemorrhage, unspecified Patient Disposition: Date/Time: 05/13/25 16:22
--- NOTE | 2025-05-13 16:24 | PC.NURSE ---
[facility] [employer] [facility] declined patient [place] declined patient
[2025-05-13] MEDS: Octreotide Acetate 100 MCG/ML AMPUL IVPUSH (16:25)
--- OUTSIDE RECORDS SUMMARY | 2025-05-13 18:25 | XMS_ITS | Clinical Summary ---
Author Organization [facility] Address [address] [place] [id number] Phone Care Team Providers Care Biomedical Instrument Technician Name Role Phone Jacob Jones MD Primary Care Provider [phone] Encounters Date Type Department Care Team Description 05/02/2025 Orders Only [facility] [address] [place] [id number] Homehealth, Interface ProviderMD from Last 3 Months Social History Tobacco Use Types Packs/Day Years Used Date Smoking Tobacco: Never Assessed Education Answer Date Recorded Are you interested in more education? Not on evon e 05/02/2025 Are you concerned about learning? Not on file 05/02/2025 No 05/02/2025 No 05/02/2025 Digital Access Answer Date Recorded No 05/02/2025 No 05/02/2025 Reliable internet access at home? Not on file 05/02/2025 Device with a working camera? Not on file Comments Unknown Sex and Gender Information Value Date Recorded Sex Assigned at Not on file Legal Sex Female 2:19 PM EST Gender Identity Not on file Sexual Orientation Not on file Plan of Treatment Not on file Medical Devices Not on file Insurance [employer] [place] P[place] [address] [place] [address] MEDICARE PPO [place] [address] [place] [address] MEDICARE PPO [place] [address] [place] [address] MEDICARE PPO BLUE REPLACEMENT [facility] MEDICARE PPO BLUE REPLACEMENT [facility] MEDICARE PPO BLUE REPLACEMENT Care Teams Biomedical Instrument Technician Relationship Specialty Start Date End Date Jacob Jones MD [address] [place] [address] [place] [address] PCP - General Internal Medicine 05/02/25 Additional Source Comments The information contained in this document represents components of the legal health record. It is not the complete legal health record.[facility]
[2025-05-14 14:34] LABS: Glucose, Whole Blood 90 mg/dL (60-115)
== END 2025-05-13 22:28 | disposition expired ==
PROVIDERS: Emergency Provider Student in an Organized Health Care Education/Training Program; PCP Internal Medicine
DX: I46.9 Cardiac arrest, cause unspecified (principal); K92.2 Gastrointestinal hemorrhage, unspecified; J44.9 Chronic obstructive pulmonary disease, unspecified; I10 Essential (primary) hypertension; Z88.6 Allergy status to analgesic agent; Z91.018 Allergy to other foods
CPT/HCPCS: 31500; 36430; 82947; 86900; 86901; 86920; 96374; 96375; 99291; J0168; J2354; J2470; P9016; P9017